=== PATIENT | female | born 1980 | race Caucasian/White ===

== ENCOUNTER 2020-06-09 15:59 | Outpatient (REF) | payer BC, SELFPAY | END 2020-06-09 16:00 | disposition home or self-care (01) | LOC: HO.LAB 15:59 | PROVIDERS: PCP Internal Medicine; Visit Provider Internal Medicine | DX: Z20.828 Contact with and (suspected) exposure to other viral communicable diseases (principal) | CPT/HCPCS: C9803; U0003 ==

== ENCOUNTER 2020-09-10 08:22 | Outpatient (REF) | payer BC, SELFPAY ==
[2020-09-10 11:40] LABS: Hematocrit 38.9 % (37-47); Hemoglobin 12.8 g/dl (12.0-16.0); Mean Corpuscular HGB Conc 32.9 g/dl (31.0-35.0); Mean Corpuscular Hemoglobin 30.9 pg (27.0-33.0); Mean Platelet Volume 11.3 fL (9.4-12.3); Platelet Count 179 X10*3/uL (160-400); Red Blood Count 4.14 X10*6/uL (4.20-5.50); Red Cell Distribution Width 12.8 % (11.0-16.0); White Blood Count 6.4 X10*3/uL (4.8-10.8)
[2020-09-10 12:08] LABS: Alanine Aminotransferase 14 U/L (0-31); Albumin Level 4.1 g/dL (3.5-5.0); Alkaline Phosphatase 50 U/L (39-117); Anion Gap 14 (12-20); Aspartate Amino Transferase 14 U/L (5-31); Bilirubin Total < 0.2 mg/dL (0.0-1.0); Blood Urea Nitrogen 13 mg/dL (9-16); Calcium 8.5 mg/dL (8.4-10.2); Carbon Dioxide 26 mmol/L (22-29); Chloride 105 mmol/L (96-108); Cholesterol 149 mg/dL; Estimated Glomerular Filt Rate > 60; Glucose Fasting 104 mg/dL (60-99); HDL Cholesterol 53 mg/dL; LDL Cholesterol Calculated 85 mg/dl; Potassium 4.9 mmol/L (3.3-5.1); Sodium 140 mmol/L (135-145); Total Protein 6.3 g/dL (6.5-8.0); Triglycerides 56 mg/dL
[2020-09-10 12:12] LABS: Thyroid Stimulating Hormone 0.95 uIU/mL (0.32-4.0); Vitamin D 25-OH Total 23.8 ng/mL (>30)
== END 2020-09-10 08:23 | disposition home or self-care (01) ==
LOC: HO.MANLDS 08:22
PROVIDERS: PCP Internal Medicine; Visit Provider Internal Medicine
DX: Z00.00 Encounter for general adult medical examination without abnormal findings (principal)
CPT/HCPCS: 36415; 80053; 80061; 82306; 84443; 85027

== ENCOUNTER 2022-02-01 11:13 | Outpatient (REF) | payer BC, SELFPAY ==
[2022-02-07 10:16] LABS: HLA B27 Negative (Negative)
== END 2022-02-01 11:14 | disposition home or self-care (01) ==
LOC: HO.MANLDS 11:13
PROVIDERS: Visit Provider Internal Medicine
DX: M46.1 Sacroiliitis, not elsewhere classified (principal)
CPT/HCPCS: 36415; 86812

== ENCOUNTER 2022-07-28 11:45 | Outpatient (REF) | payer BC, SELFPAY ==
[2022-07-28 14:15] LABS: MANUAL DIFF FLAG NO
[2022-07-28 14:21] LABS: Basophils Percent Auto 0.3 % (0-2); Eosinophils Percent Auto 0.4 % (0-4); Hemoglobin 13.8 g/dl (12.0-16.0); Imm Gran Abs Auto 0.03 X10*3/uL (0.00-0.03); Imm Gran Pct Auto 0.3 % (0.0-0.4); Lymphocytes Absolute Auto 1.5 X10*3/uL (1.2-4.9); Lymphocytes Percent Auto 14.8 % (20-40); Mean Corpuscular HGB Conc 33.7 g/dl (31.0-35.0); Mean Corpuscular Hemoglobin 31.3 pg (27.0-33.0); Mean Platelet Volume 10.6 fL (9.4-12.3); Monocytes Absolute Auto 0.7 X10*3/uL (0.1-1.2); Monocytes Percent Auto 6.5 % (2-11); Neutrophils Absolute Auto 8.1 x10*3/uL (2.0-8.3); Neutrophils Percent Auto 77.7 % (45-73); Platelet Count 196 X10*3/uL (160-400); Red Blood Count 4.41 X10*6/uL (4.20-5.50); Red Cell Distribution Width 13.6 % (11.0-16.0); White Blood Count 10.4 X10*3/uL (4.8-10.8)
[2022-07-28 14:58] LABS: Alanine Aminotransferase 12 U/L (0-31); Albumin Level 4.2 g/dL (3.5-5.0); Alkaline Phosphatase 53 U/L (39-117); Anion Gap 13 (12-20); Aspartate Amino Transferase 14 U/L (5-31); Bilirubin Total 0.4 mg/dL (0.0-1.0); Blood Urea Nitrogen 16 mg/dL (9-16); C Reactive Protein < 0.10 mg/dL (< or = 0.50); Calcium 9.1 mg/dL (8.4-10.2); Carbon Dioxide 27 mmol/L (22-29); Chloride 106 mmol/L (96-108); Estimated Glomerular Filt Rate > 60; Glucose Random 80 mg/dL (60-115); Iron 121 mcg/dL (30-160); Percent Iron Saturation 42 % (15-50); Potassium 3.8 mmol/L (3.3-5.1); Sodium 142 mmol/L (135-145); Total Iron Binding Capacity 286 mcg/dL (228-428); Total Protein 6.6 g/dL (6.5-8.0); Unsaturated Iron Binding 165 ug/dL
[2022-07-28 15:08] LABS: Erythrocyte Sedimentation Rate 1 MM/HR (0-20)
[2022-07-28 15:27] LABS: Ferritin 32 ng/mL (10-250); Folate 9.5 ng/mL (> or = 4.0); Free T4 (Free Thyroxine) 0.91 ng/dL (0.71-1.85); Thyroid Stimulating Hormone 0.65 uIU/mL (0.32-4.0); Vitamin B12 240 pg/mL (200-900); Vitamin D 25-OH Total 23.4 ng/mL (>30)
[2022-07-30 18:04] LABS: DHEA Sulfate 5 mcg/dL (15-205); Follicle Stimulating Hormone 6.8 mIU/mL; Lutenizing Hormone 3.6 mIU/mL; Prolactin 16.1 ng/mL
[2022-08-03 18:14] LABS: Progesterone 1.8 ng/mL
[2022-08-05 18:53] LABS: Testosterone, Total 3 ng/dL (2-45)
[2022-08-12 00:13] LABS: Estradiol Free 0.81 pg/mL; Estradiol, Ultrasensitive 44 pg/mL
== END 2022-07-28 11:46 | disposition home or self-care (01) ==
LOC: HO.MANLDS 11:45
PROVIDERS: Visit Provider Physician Assistant
DX: R53.83 Other fatigue (principal); N94.6 Dysmenorrhea, unspecified
CPT/HCPCS: 36415; 80053; 82306; 82607; 82627; 82670; 82681; 82728; 82746; 83001; 83002; 83540; 84144; 84146; 84403; 84439; 84443; 85025; 85652; 86140

== ENCOUNTER 2022-10-19 16:50 | Emergency (ER) | payer BC, SELFPAY ==
--- NOTE | ~2022-10-19 | US_ITS ---
EXAMINATION: US ABDOMEN LIMITED CLINICAL INFORMATION: Right upper quadrant pain. COMPARISON: None available. TECHNIQUE: Real-time imaging of the right upper quadrant abdominal viscera. FINDINGS: PANCREAS: Normal. LIVER: Normal. The liver is normal in size. The liver contour is normal. Parenchymal echogenicity is normal. No focal hepatic lesion. There is no intrahepatic biliary duct dilatation seen. GALLBLADDER: Normal. The gallbladder is physiologically distended without evidence of stones, sludge, polyps, wall thickening or pericholecystic fluid. COMMON BILE DUCT: Normal in caliber measuring 0.6 cm in diameter. RIGHT KIDNEY: Normal. No hydronephrosis. No renal calculi or focal parenchymal lesions. The kidney measures 11.1 cm in maximum dimension. FREE FLUID: None. RIGHT LOWER QUADRANT: The appendix was not identified sonographically. US/US abdomen limited IMPRESSION: No cholelithiasis or evidence of acute cholecystitis. The appendix was not identified sonographically. No free fluid. If clinical concern for appendicitis a CT abdomen pelvis with contrast could be obtained.
[2022-10-19 17:33] VITALS: BP 150/87; PULSE 88; RESP 18; TEMP 36.7; O2SAT 100; BMI 28.7
--- NOTE | 2022-10-19 17:33 | ED.GENADULT ---
HPI - General Adult General Chief complaint: Abdominal Pain Stated complaint: abdominal pain Time Seen by Provider: 10/19/22 19:50 Source: patient Mode of arrival: ambulatory History of Present Illness HPI narrative: 42-year-old female who states that for the past 2-3 days she has had pain and points to the anterior aspect of the iliac crest, she denies any traumatic injury to the area denies any association with nausea, vomiting, fever, chills, urinary symptoms, and states that she suffers from constipation at baseline. Related Data Allergies Allergy/AdvReac Type Severity Reaction Status Date / Time Penicillins Allergy Hives Verified 10/19/22 17:38 Review of Systems Review of Systems: Pertinent positives and negatives as stated in HPI [facility] Past Medical History Source: nursing notes reviewed Social History Social History Advance Directives: No Advance Directives Information Provided: No Physical Exam ED Vital Signs: Vital Signs - 24 hr 10/19/22 17:33 10/19/22 19:35 10/19/22 19:54 Temperature 98.0 F 98.3 F Pulse Rate 88 96 76 Respiratory Rate 18 18 18 Blood Pressure 150/87 H 137/79 145/74 H Pulse Oximetry 100 100 99 Oxygen Delivery Method Room Air Room Air Room Air BMI result Body Mass Index 28.7 VITAL SIGNS: Reviewed. GENERAL: Well developed, well nourished, in no acute distress. HEAD: Normocephalic/atraumatic EYES: PERRLA, EOMI EARS: Ext canals without abnormality NOSE: Nares patent bilateral OROPHARYNX: no oral lesions noted, posterior pharynx clear NECK: Supple, no adenopathy LUNGS: Normal breath sounds. No adventitious sounds or accessory muscle use. SpO2<100> CARDIOVASCULAR: Regular rate and rhythm without noted murmurs ABDOMEN: Soft, non-tender, non-distended with bowel sounds. There is no obvious ecchymosis/erythema/induration over the site identified by the patient at the right anterior aspect of the iliac crest. There is certainly no flank pain, no CVA tenderness and no right lower quadrant or right upper quadrant pain, there is no vesicular rash or dermatomal type distribution to patient's pain. MUSCULOSKELETAL: No tenderness, deformities, or effusions noted on gross inspection. EXTREMITIES: No cyanosis, clubbing or edema. SKIN: Inspection of the skin reveals no rashes NEUROLOGIC: Alert and oriented x 4. Strength and sensation to light touch were grossly intact x 4. Course Course Course Narrative: This is an RME: Additional HPI, ROS, PE not included below will be deferred to primary provider. 42 year old female with no significant PMH presents to the ED with RUQ abominal pain worsening for several days. Patient denies issues urinating, fevers, chills, nausea, vomiting or diarrhea. Patient reports she has her gallbaldder. Plan: imaging Medical Decision Making Medical Decision Making [facility] Narrative: 42-year-old female with history and clinical presentation to me right iliac crest soft tissue pain, she did not endorse me that it was right upper quadrant or right lower quadrant. I have reviewed all investigations and in combination with my clinical exam there is no evidence of ectopic, appendicitis, renal colic, UTI. I suspect that there may be a component of soft tissue pain and inflammation related to patient's underlying and ongoing conditions with extensive chronic back pain which lead to her needing to pursue epidural pain management. She is otherwise stable for discharge to home and states that she already has Tylenol, ibuprofen, lidocaine patch home. Differential Diagnosis Please see the discussion above Lab Data Please see the discussion above 10/19/22 18:27 10/19/22 18:27 Labs: Lab Results 10/19/22 10/19/22 10/19/22 Range/Units 18:27 18:27 20:28 WBC 10.3 (4.8-10.8) X10*3/uL RBC 4.45 (4.20-5.50) X10*6/uL Hgb 13.9 (12.0-16.0) g/dl Hct 41.0 (37.0-47.0) % MCV 92.1 (80.0-98.0) fL MCH 31.2 (27.0-33.0) pg MCHC 33.9 (31.0-35.0) g/dl RDW 12.9 (11.0-16.0) % Plt Count TNP MPV 10.9 (9.4-12.3) fL Immature Gran % (Auto) 0.5 H (0.0-0.4) % Neut % (Auto) 84.6 H (45-73) % Lymph % (Auto) 10.5 L (20-40) % Louisa % (Auto) 3.7 (2-11) % Eos % (Auto) 0.4 (0-4) % Baso % (Auto) 0.3 (0-2) % Lymph # (Auto) 1.1 L (1.2-4.9) X10*3/uL Louisa # (Auto) 0.4 (0.1-1.2) X10*3/uL Eos # (Auto) 0.0 (0.0-0.4) X10*3/uL Baso # (Auto) 0.0 (0.0-0.2) X10*3/uL Abs Immat Gran (auto) 0.05 H (0.00-0.03) X10*3/uL Absolute Neuts (auto) 8.7 H (2.0-8.3) x10*3/uL Absolute Nucleated RBC 0.000 (0.0-0.012) X10*3/uL Nucleated RBC % (auto) 0.0 (0.0-0.2) /100WBC Smear Tech's Comments VERIFIED Sodium 140 (135-145) mmol/L Potassium 4.3 (3.3-5.1) mmol/L Chloride 106 (96-108) mmol/L Carbon Dioxide 25 (22-29) mmol/L Anion Gap 13 (12-20) BUN 15 (9-16) mg/dL Creatinine 0.80 (0.5-1.4) mg/dL Estim Creat Clear Calc 100.4 Estimated GFR > 60 Random Glucose 108 (60-115) mg/dL Calcium 9.0 (8.4-10.2) mg/dL Magnesium 1.9 (1.6-2.6) mg/dL Total Bilirubin 0.3 (0.0-1.0) mg/dL AST 17 (5-31) U/L ALT 15 (0-31) U/L Alkaline Phosphatase 59 (39-117) U/L Total Protein 6.9 (6.5-8.0) g/dL Albumin 4.4 (3.5-5.0) g/dL Beta HCG, Quant mIU/mL Urine Color Yellow Urine Appearance Clear Urine pH 5.5 (5.0-9.0) Ur Specific [place] 1.015 (1.005-1.025) Urine Protein Negative (Neg-Trace) mg/dL Urine Glucose (UA) Negative (Negative) mg/dL Urine Ketones Negative (Negative) mg/dL Urine Blood Negative (Negative) Urine Nitrite Negative (Negative) Ur Leukocyte Esterase Trace H (Negative) Urine RBC 0-2 (0-2) /HPF Urine WBC 0-5 (0-5) /HPF Ur Squamous Epith Cells 3-5 (0-2) /HPF Urine Bacteria None Seen (None Seen) Hyaline Casts 0-2 (0-2) /LPF 10/19/22 Range/Units Unknown WBC (4.8-10.8) X10*3/uL RBC (4.20-5.50) X10*6/uL Hgb (12.0-16.0) g/dl Hct (37.0-47.0) % MCV (80.0-98.0) fL MCH (27.0-33.0) pg MCHC (31.0-35.0) g/dl RDW (11.0-16.0) % Plt Count MPV (9.4-12.3) fL Immature Gran % (Auto) (0.0-0.4) % Neut % (Auto) (45-73) % Lymph % (Auto) (20-40) % Louisa % (Auto) (2-11) % Eos % (Auto) (0-4) % Baso % (Auto) (0-2) % Lymph # (Auto) (1.2-4.9) X10*3/uL Louisa # (Auto) (0.1-1.2) X10*3/uL Eos # (Auto) (0.0-0.4) X10*3/uL Baso # (Auto) (0.0-0.2) X10*3/uL Abs Immat Gran (auto) (0.00-0.03) X10*3/uL Absolute Neuts (auto) (2.0-8.3) x10*3/uL Absolute Nucleated RBC (0.0-0.012) X10*3/uL Nucleated RBC % (auto) (0.0-0.2) /100WBC Smear Tech's Comments Sodium (135-145) mmol/L Potassium (3.3-5.1) mmol/L Chloride (96-108) mmol/L Carbon Dioxide (22-29) mmol/L Anion Gap (12-20) BUN (9-16) mg/dL Creatinine (0.5-1.4) mg/dL Estim Creat Clear Calc Estimated GFR Random Glucose (60-115) mg/dL Calcium (8.4-10.2) mg/dL Magnesium (1.6-2.6) mg/dL Total Bilirubin (0.0-1.0) mg/dL AST (5-31) U/L ALT (0-31) U/L Alkaline Phosphatase (39-117) U/L Total Protein (6.5-8.0) g/dL Albumin (3.5-5.0) g/dL Beta HCG, Quant < 2 mIU/mL Urine Color Urine Appearance Urine pH (5.0-9.0) Ur Specific [place] (1.005-1.025) Urine Protein (Neg-Trace) mg/dL Urine Glucose (UA) (Negative) mg/dL Urine Ketones (Negative) mg/dL Urine Blood (Negative) Urine Nitrite (Negative) Ur Leukocyte Esterase (Negative) Urine RBC (0-2) /HPF Urine WBC (0-5) /HPF Ur Squamous Epith Cells (0-2) /HPF Urine Bacteria (None Seen) Hyaline Casts (0-2) /LPF Radiology Impression Radiologist Impression: My interpretation is in agreement with radiology's impression of the imaging studies. External Record Review External record reviewed: Prior outpatient labs Discharge Plan Discharge Clinical Impression: Right flank pain Patient Disposition: Home, Self-Care Instructions: Flank Pain (ED) Additional Instructions: Please follow-up with your primary care doctor for further evaluation. There was no evidence to suggest kidney stone, appendicitis, UTI, ectopic . Return to the ER for any worsening symptoms. Referrals: Joselo Mckeon MD [Primary Care Provider] -
[2022-10-19 18:41] LABS: Basophils Percent Auto 0.3 % (0-2); Eosinophils Percent Auto 0.4 % (0-4); Hemoglobin 13.9 g/dl (12.0-16.0); Imm Gran Abs Auto 0.05 X10*3/uL (0.00-0.03); Imm Gran Pct Auto 0.5 % (0.0-0.4); Lymphocytes Absolute Auto 1.1 X10*3/uL (1.2-4.9); Lymphocytes Percent Auto 10.5 % (20-40); MANUAL DIFF FLAG SCAN; Mean Corpuscular HGB Conc 33.9 g/dl (31.0-35.0); Mean Corpuscular Hemoglobin 31.2 pg (27.0-33.0); Mean Corpuscular Volume 92.1 fL (80.0-98.0); Mean Platelet Volume 10.9 fL (9.4-12.3); Monocytes Absolute Auto 0.4 X10*3/uL (0.1-1.2); Monocytes Percent Auto 3.7 % (2-11); Neutrophils Absolute Auto 8.7 x10*3/uL (2.0-8.3); Neutrophils Percent Auto 84.6 % (45-73); PLT CLUMP 1; Red Blood Count 4.45 X10*6/uL (4.20-5.50); Red Cell Distribution Width 12.9 % (11.0-16.0); SCAN SMEAR FLAG 1
[2022-10-19 18:50] LABS: White Blood Count 10.3 X10*3/uL (4.8-10.8)
[2022-10-19 18:51] LABS: Alanine Aminotransferase 15 U/L (0-31); Albumin Level 4.4 g/dL (3.5-5.0); Alkaline Phosphatase 59 U/L (39-117); Anion Gap 13 (12-20); Aspartate Amino Transferase 17 U/L (5-31); Bilirubin Total 0.3 mg/dL (0.0-1.0); Blood Urea Nitrogen 15 mg/dL (9-16); Carbon Dioxide 25 mmol/L (22-29); Chloride 106 mmol/L (96-108); Creatinine Clr Calc Pharmacy 100.4; Estimated Glomerular Filt Rate > 60; Glucose Random 108 mg/dL (60-115); Magnesium 1.9 mg/dL (1.6-2.6); Potassium 4.3 mmol/L (3.3-5.1); Sodium 140 mmol/L (135-145); Total Protein 6.9 g/dL (6.5-8.0)
[2022-10-19 19:16] LABS: SLIDE REVIEW VERIFIED
[2022-10-19 19:35] VITALS: BP 137/79; PULSE 96; RESP 18; O2SAT 100
[2022-10-19 19:43] LABS: HCG Quantitative < 2 mIU/mL
[2022-10-19 19:54] VITALS: BP 145/74; PULSE 76; RESP 18; TEMP 36.8; O2SAT 99
[2022-10-19 20:37] LABS: Appearance Urine Clear; Color Urine Yellow; Glucose Urine UA Negative (Negative); Leukocyte Esterase Urine Trace (Negative); Nitrite Urine Negative (Negative); PH 5.5 (5.0-9.0); Specific Gravity - Urine 1.015 (1.005-1.025); UMIC TRIGGER UACC YES; Urine Blood Negative (Negative); Urine Ketones Negative (Negative); Urine Protein Negative (Neg-Trace)
[2022-10-19 20:39] LABS: Bacteria Urine None Seen (None Seen); Hyaline Casts Urine 0-2 /LPF (0-2); RBC Urine 0-2 /HPF (0-2); WBC Urine 0-5 /HPF (0-5)
== END 2022-10-19 21:34 | disposition home or self-care (01) ==
PROVIDERS: Physician Assistant; Emergency Provider Student in an Organized Health Care Education/Training Program; PCP Internal Medicine
DX: R10.11 Right upper quadrant pain (principal); Z79.899 Other long term (current) drug therapy
CPT/HCPCS: 36415; 76705; 80053; 81001; 83735; 84702; 85025; 99283; 99284

== ENCOUNTER 2023-07-31 11:06 | Emergency (ER) | payer BC, SELFPAY ==
--- NOTE | ~2023-07-31 | CT_ITS ---
EXAM: Noncontrast CT scan of the head and cervical spine. INDICATION: Fall with head and neck pain. COMPARISON: None available TECHNIQUE: Axial slices were obtained from skull base to vertex and displayed. This was followed by helical, multislice, multidetector axial images from the occiput to the upper thorax. Coronal and sagittal reformats of the cervical spine in addition to coronal reformats of the head were obtained at the technologist workstation. DLP: 1110 mGy-cm FINDINGS: HEAD: There is no evidence of acute intracranial hemorrhage or territorial infarction. No abnormal mass effect or midline shift is appreciated. Vivar-white differentiation is well preserved. No extra-axial fluid collections. The ventricular system and cortical sulci are normal in size. The osseous structures and soft tissues are normal. The visualized paranasal sinuses and mastoid air cells are well aerated. SPINE: The cervical spine is visualized in its entirety. Alignment is within normal limits. Normal C1/2 articulation. Cervical vertebral body heights are maintained. Cervical disc spaces are well-maintained diffusely. No appreciable degenerative changes of the cervical spine. Visualized lung apices are well aerated. CT/CT cervical spine wo IV con IMPRESSION: 1. No acute intracranial pathology. 2. No fractures or dislocations of the cervical spine.
--- NOTE | ~2023-07-31 | CT_ITS ---
EXAM: Noncontrast CT scan of the head and cervical spine. INDICATION: Fall with head and neck pain. COMPARISON: None available TECHNIQUE: Axial slices were obtained from skull base to vertex and displayed. This was followed by helical, multislice, multidetector axial images from the occiput to the upper thorax. Coronal and sagittal reformats of the cervical spine in addition to coronal reformats of the head were obtained at the technologist workstation. DLP: 1110 mGy-cm FINDINGS: HEAD: There is no evidence of acute intracranial hemorrhage or territorial infarction. No abnormal mass effect or midline shift is appreciated. Vivar-white differentiation is well preserved. No extra-axial fluid collections. The ventricular system and cortical sulci are normal in size. The osseous structures and soft tissues are normal. The visualized paranasal sinuses and mastoid air cells are well aerated. SPINE: The cervical spine is visualized in its entirety. Alignment is within normal limits. Normal C1/2 articulation. Cervical vertebral body heights are maintained. Cervical disc spaces are well-maintained diffusely. No appreciable degenerative changes of the cervical spine. Visualized lung apices are well aerated. CT/CT head/brain wo IV con IMPRESSION: 1. No acute intracranial pathology. 2. No fractures or dislocations of the cervical spine.
[2023-07-31 11:19] VITALS: BP 145/91; PULSE 107; RESP 19; TEMP 36.6; O2SAT 98; BMI 30.2
--- NOTE | 2023-07-31 11:27 | ED_ITS ---
HPI - General Adult General Chief complaint: General Medical Stated complaint: both shoulders and arms tightness multi issues Time Seen by Provider: 07/31/23 13:11 History of Present Illness HPI narrative: Patient left without complete of treatment by ED provider Related Data Allergies Allergy/AdvReac Type Severity Reaction Status Date / Time Penicillins Allergy Hives Verified 07/31/23 11:19 [facility] Social History Social History (System 04/03/23 @ 13:14 by Yarely Lynch) Advance Directives: No Advance Directives Information Provided: No Physical Exam ED Vital Signs: Vital Signs - 24 hr 07/31/23 11:19 Temperature 98 F Pulse Rate 107 H Respiratory Rate 19 Blood Pressure 145/91 H Pulse Oximetry 98 Oxygen Delivery Method Room Air BMI result Body Mass Index 30.2 Course Course Course Narrative: RME: 43 yold female with past medical history of neuropathy arthritis presents to ED for posterior neck pain radiating down both shoulders with tingling pain sensation since satruday. Patient states also nausea and fatigue since satruday. Patient states urine dark. Patient states she fell a week ago .patient denies hitting head or loss of conscisouness. due to fall will order images. NIH score zero. positive posterior cervical spine tenderness on palpaion Medical Decision Making Lab Data 07/31/23 12:15 07/31/23 12:15 Labs: Lab Results 07/31/23 Range/Units 12:15 WBC 4.3 L (4.8-10.8) X10*3/uL RBC 4.43 (4.20-5.50) X10*6/uL Hgb 13.5 (12.0-16.0) g/dl Hct 40.7 (37.0-47.0) % MCV 91.9 (80.0-98.0) fL MCH 30.5 (27.0-33.0) pg MCHC 33.2 (31.0-35.0) g/dl RDW 13.5 (11.0-16.0) % Plt Count 134 L D (160-400) X10*3/uL MPV 10.6 (9.4-12.3) fL Immature Gran % (Auto) 0.2 (0.0-0.4) % Neut % (Auto) 56.3 (45-73) % Lymph % (Auto) 32.3 (20-40) % Randolph % (Auto) 9.8 (2-11) % Eos % (Auto) 0.7 (0-4) % Baso % (Auto) 0.7 (0-2) % Lymph # (Auto) 1.4 (1.2-4.9) X10*3/uL Randolph # (Auto) 0.4 (0.1-1.2) X10*3/uL Eos # (Auto) 0.0 (0.0-0.4) X10*3/uL Baso # (Auto) 0.0 (0.0-0.2) X10*3/uL Abs Immat Gran (auto) 0.01 (0.00-0.03) X10*3/uL Absolute Neuts (auto) 2.4 (2.0-8.3) x10*3/uL Absolute Nucleated RBC 0.000 (0.0-0.012) X10*3/uL Nucleated RBC % (auto) 0.0 (0.0-0.2) /100WBC Sodium 142 (135-145) mmol/L Potassium 4.3 (3.3-5.1) mmol/L Chloride 108 (96-108) mmol/L Carbon Dioxide 28 (22-29) mmol/L Anion Gap 10 L (12-20) BUN 8 L (9-16) mg/dL Creatinine 0.73 (0.5-1.4) mg/dL Estim Creat Clear Calc 111.7 Estimated GFR > 60 Random Glucose 117 H (60-115) mg/dL Calcium 8.8 (8.4-10.2) mg/dL Magnesium 1.9 (1.6-2.6) mg/dL Total Bilirubin 1.4 H (0.0-1.0) mg/dL AST 558 H (5-31) U/L ALT 944 H (0-31) U/L Alkaline Phosphatase 253 H (39-117) U/L Total Creatine Kinase 113 (26-140) U/L Total Protein 6.6 (6.5-8.0) g/dL Albumin 3.6 (3.5-5.0) g/dL Lipase 14 (8-78) U/L Beta HCG, Quant < 2 mIU/mL Influenza Type A (PCR) NEGATIVE (Negative) Influenza Type B (PCR) NEGATIVE (Negative) RSV RNA Qual (PCR) NEGATIVE (Negative) SARS-CoV-2 RNA (RT-PCR) NEGATIVE (Negative) Discharge Plan Discharge Clinical Impression: Bilateral shoulder pain Patient Disposition: Left W/O Completing Treatment Discharge Date/Time: 07/31/23 18:14
[2023-07-31 12:22] LABS: MANUAL DIFF FLAG NO
[2023-07-31 12:25] LABS: Basophils Percent Auto 0.7 % (0-2); Eosinophils Percent Auto 0.7 % (0-4); Hematocrit 40.7 % (37.0-47.0); Hemoglobin 13.5 g/dl (12.0-16.0); Imm Gran Abs Auto 0.01 X10*3/uL (0.00-0.03); Imm Gran Pct Auto 0.2 % (0.0-0.4); Lymphocytes Absolute Auto 1.4 X10*3/uL (1.2-4.9); Lymphocytes Percent Auto 32.3 % (20-40); Mean Corpuscular HGB Conc 33.2 g/dl (31.0-35.0); Mean Corpuscular Hemoglobin 30.5 pg (27.0-33.0); Mean Corpuscular Volume 91.9 fL (80.0-98.0); Mean Platelet Volume 10.6 fL (9.4-12.3); Monocytes Absolute Auto 0.4 X10*3/uL (0.1-1.2); Monocytes Percent Auto 9.8 % (2-11); Neutrophils Absolute Auto 2.4 x10*3/uL (2.0-8.3); Neutrophils Percent Auto 56.3 % (45-73); Platelet Count 134 X10*3/uL (160-400); Red Blood Count 4.43 X10*6/uL (4.20-5.50); Red Cell Distribution Width 13.5 % (11.0-16.0); White Blood Count 4.3 X10*3/uL (4.8-10.8)
[2023-07-31 12:45] LABS: Alanine Aminotransferase 944 U/L (0-31); Albumin Level 3.6 g/dL (3.5-5.0); Alkaline Phosphatase 253 U/L (39-117); Anion Gap 10 (12-20); Aspartate Amino Transferase 558 U/L (5-31); Bilirubin Total 1.4 mg/dL (0.0-1.0); Blood Urea Nitrogen 8 mg/dL (9-16); Calcium 8.8 mg/dL (8.4-10.2); Carbon Dioxide 28 mmol/L (22-29); Chloride 108 mmol/L (96-108); Creatinine Clr Calc Pharmacy 111.7; Estimated Glomerular Filt Rate > 60; Glucose Random 117 mg/dL (60-115); Lipase 14 U/L (8-78); Magnesium 1.9 mg/dL (1.6-2.6); Potassium 4.3 mmol/L (3.3-5.1); Sodium 142 mmol/L (135-145); Total Protein 6.6 g/dL (6.5-8.0)
[2023-07-31 12:50] LABS: HCG Quantitative < 2 mIU/mL
[2023-07-31 13:00] LABS: Influenza A PCR NEGATIVE (Negative); Influenza B PCR NEGATIVE (Negative); Resp Syncy Virus RNA Qual PCR NEGATIVE (Negative); SARS COV2 PCR INHOUSE NEGATIVE (Negative)
--- OUTSIDE RECORDS SUMMARY | 2023-07-31 18:14 | XMS_ITS | Continuity of Care Document ---
Author Name Unknown Organization [facility] [place] [address] [address]- Care Team Providers Care Django Developer Name Role Phone Joselo Mckeon DO Uriel Primary Care Physician [phone] Encounter [facility] [place] Date(s): 02/20/20 - 03/21/20 [facility] [address] [address]- [facility] Attending Physician: Phyllis Michael Admitting Physician: Admtr, Ar8 Referring Physician: Admtr, Ar8 Allergies, Adverse Reactions, Alerts Substance Reaction Severity Status penicillins Active Medications Boots See Instructions, # 1 each, Maintenance, [employer] short boot/ 01A-M Left/ Medium DX- 825.25, 07/23/12 10:50:37 Start Date: 07/23/12 Status: Ordered Buprenorphine = 5 mg, Daily, 0 Refills, Maintenance, 07/02/15 9:27:34 Start Date: 07/02/15 Status: Ordered Diazepam 0 Refills, Maintenance, 10/29/14 10:20:41 Start Date: 10/29/14 Status: Ordered diclofenac sodium By Mouth, 0 Refills, Maintenance, 10/29/14 10:20:33 Start Date: 10/29/14 Status: Ordered Flexeril Tablet By Mouth, 3 times a day, Maintenance, 10/29/14 10:20:49 Start Date: 10/29/14 Status: Ordered Lactulose 0 Refills, Maintenance, 10/29/14 10:20:15 Start Date: 10/29/14 Status: Ordered Mirena 52 mg intrauteral device 1 each = 52 mg, Once, 0 Refills, Maintenance, 10/29/14 10:21:58 Start Date: 10/29/14 Status: Ordered Multivitamin By Mouth, Daily, 0 Refills, Maintenance, 10/29/14 10:18:29 Start Date: 10/29/14 Status: Ordered Osteo Bi-Flex 0 Refills, Maintenance, 10/29/14 10:20:07 Start Date: 10/29/14 Status: Ordered Valtrex Tablet By Mouth, Maintenance, 10/29/14 10:21:29 Start Date: 10/29/14 Status: Ordered Beatris-Zinc 1 tablet, By Mouth, Daily, 0 Refills, Maintenance, 10/29/14 10:18:47 Start Date: 10/29/14 Status: Ordered Wellbutrin XL 150 mg/24 hours oral tablet, extended release 1 tablet = 150 mg, By Mouth, Every 24 hours, # 90 tablet, 0 Refills, Maintenance, 06/09/15 10:24:08, ER Tablet, 1 tablet By Mouth Every 24 hours,x90 days Start Date: 06/09/15 Stop Date: 09/07/15 Status: Ordered Wellbutrin XL 300 mg/24 hours oral tablet, extended release 1 tablet = 300 mg, By Mouth, Daily, # 90 tablet, 3 Refills, Maintenance, 07/02/15 9:34:09, ER Tablet, 1 tablet By Mouth Daily,x90 days Start Date: 07/02/15 Stop Date: 06/26/16 Status: Ordered Social History Social History Type Response Smoking Status Current every day radha melton entered on: 10/29/14 Sex
--- OUTSIDE RECORDS SUMMARY | 2023-07-31 18:14 | XMS_ITS | Continuity of Care Document ---
Author Name Unknown Organization [facility] Address [address] [address]- Care Team Providers Care Tip Out Worker Name Role Phone Joselo Mckeon DO Uriel Primary Care Physician [place] [facility] [place]13[place] 11[place]12/21 [facility] [address] [address]- [place] Allergies, Adverse Reactions, Alerts Substance Reaction Severity [...] 10/29/14 10:20:07 Start Date: 10/29/14 Status: Ordered ProAir HFA 90 mcg/inh inhalation aerosol with adapter 2, puffs, Inhalation, Every 6 hours, PRN, # 8.5 Gm, Refills 0, Tot. Refills 0, Maintenance, 12/04/20 14:05:00 EDT, Aerosol, Route to Pharmacy Electronically, [id number], [facility]/pharmacy #[id number], 169, cm, 02/20/20 14:46:00 EDT, Height Start Date: 12/04/20 Status: Ordered Valtrex Tablet By Mouth, Maintenance, [...]
--- OUTSIDE RECORDS SUMMARY | 2023-07-31 18:14 | XMS_ITS | Continuity of Care Document ---
Author Name Unknown Organization [facility] Address [address] [address]- Care Team Providers Care Working Manager Name Role Phone Joselo Mckeon DO Uriel Primary Care Physician Encounter [facility] [place] Date(s): 11/18/21 - 12/18/21 [facility] [address] [address]- Attending Physician: AdmPhyllis fagan Admitting Physician: Admtr, Ar8 Referring Physician: Admtr, [...] 14:05:00 EDT, Aerosol, Route to Pharmacy Electronically, [id number], [facility]/pharmacy #[id number], 169, cm, 02/20/20 14:46:00 EDT, Height [...]
--- OUTSIDE RECORDS SUMMARY | 2023-07-31 18:14 | XMS_ITS | Continuity of Care Document ---
Author Name Unknown Organization [facility] Address [address] [place] [address]- Care Team Providers Care Dowel Pin Man Name Role Phone Joselo Mckeon DO Primary Care Physician Encounter [facility] [place] Date(s): 12/04/20 - 12/11/20 [facility] [address] [place] [address]- Encounter Diagnosis Acute bronchitis(Discharge Diagnosis) - 12/04/20 Attending Physician: Jack Bajwa MD Referring Physician: Joselo Mckeon DO Allergies, Adverse Reactions, Alerts Substance Reaction Severity [...] 14:05:00 EDT, Aerosol, Route to Pharmacy Electronically, [id number], [facility]/pharmacy #[id number], 169, cm, 02/20/20 14:46:00 EDT, Height [...] Date: 07/02/15 Stop Date: 06/26/16 Status: Ordered Problem List Diagnosis Diagnosis Type Effective Dates Health Status Clinical Service Informant Acute bronchitis Discharge Diagnosis 12/04/20 Social History Social History Type Response Smoking Status Current every day radha melton entered on: 10/29/14 Sex
--- OUTSIDE RECORDS SUMMARY | 2023-07-31 18:14 | XMS_ITS | Continuity of Care Document ---
Author Name Unknown Organization [facility] Address [address] [address]- Care Team Providers Care Coronary Clinical Specialist Name Role Phone Joeslo Mckeon DO Uriel Primary Care Physician Encounter [facility] [place] Date(s): 02/20/20 - 03/21/20 [facility] [address] [address]- [facility] Attending Physician: AdmPhyllis fagan Admitting Physician: Admtr, [...]
--- OUTSIDE RECORDS SUMMARY | 2023-07-31 18:14 | XMS_ITS | Continuity of Care Document ---
Author Name Unknown Organization [facility] Address [address] [place] [address]- Care Team Providers Care Help Desk Supervisor Name Role Phone Joselo Mckeon DO Uriel Primary Care Physician [phone] Encounter [facility] [place] Date(s): 07/20/22 - 08/19/22 [facility] [address] [place], [place] [address] Attending Physician: hPyllis Michael Admitting Physician: AdmtrPhyllis Referring Physician: Admtr, Ar8 Allergies, Adverse Reactions, Alerts Substance Reaction Severity Status penicillins Active Medications Boots See Instructions, # 1 each, Maintenance, [employer] short boot/ 01A-M Left/ Medium DX- 825.25, 07/23/12 10:50:37 Start Date: 07/23/12 Status: Ordered Buprenorphine = 5 mg, Daily, 0 Refills, Maintenance, 07/02/15 9:27:34 Start Date: 07/02/15 Status: Ordered celecoxib 100 mg oral capsule 1 capsule = 100 mg, By Mouth, 2 times a day, # 60 capsule, 0 Refills, Maintenance, 07/20/22 16:43:00 EST, Capsule, Partial fill upon patient request if the prescription is for a schedule II opioid drug. Start Date: 07/20/22 Status: Ordered Compression Stockings See Instructions, # 2 each, Refills 2, Tot. Refills 2, Maintenance, surgical, calf length 20-30 mm Hg Dx: venous insufficiency, 02/20/20 15:04:00 EDT, Compound Start Date: 02/20/20 Status: Ordered Diazepam 0 Refills, Maintenance, 10/29/14 [...] 14:05:00 EDT, Aerosol, Route to Pharmacy Electronically, [id number], [facility]/pharmacy #[id number], 169, cm, 02/20/20 14:46:00 EDT, Height Start Date: 12/04/20 Status: Ordered Suboxone 8 mg-2 mg sublingual film 1 film, Sublingual, Daily, dissolve under the tongue, 0 Refills, Maintenance, 07/20/22 16:42:00 EST, Film, Partial fill upon patient request if the prescription is for a schedule II opioid drug. Start Date: 07/20/22 Status: Ordered Valtrex Tablet By Mouth, Maintenance, 10/29/14 10:21:29 Start Date: 10/29/14 Status: Ordered Betaris-Zinc 1 tablet, By Mouth, Daily, 0 Refills, [...] day radha melton entered on: 10/29/14 Sex Patient Care team information Care Team Personnel Name: Joselo Mckeon DO Position: Reference Physician Member Role: PCP Address: Address: [address] [place] [address] [place] [address]- Care Team Related Persons Name: ARELY LEYVA Address: home [address] [place] [phone]
--- OUTSIDE RECORDS SUMMARY | 2023-07-31 18:14 | XMS_ITS | Continuity of Care Document ---
Author Name Unknown Organization [facility] Address [address] [address]- Care Team Providers Care Motor Vehicle Licence Examiner Name Role Phone Joselo Mckeon DO Primary Care Physician [phone] Encounter [facility] [place] Date(s): 02/20/20 - 02/27/20 [place] [id number] [address]- [facility] Attending Physician: Silke PENNINGTON, Katya Schultz Admitting Physician: Silke PENNINGTON, Katya Schultz Referring Physician: Joselo Mckeon DO Allergies, Adverse [...] Date: 07/02/15 Stop Date: 06/26/16 Status: Ordered Vital Signs Most recent to oldest [Reference Range]: 1 Height 169.0 cm (02/20/20 2:46 PM) Weight 76.9 kg (02/20/20 2:46 PM) Oxygen Saturation [94-100 %] 100 % (02/20/20 2:46 PM) Pulse Rate [55-90 bpm] 65 bpm (02/20/20 2:46 PM) Body Mass Index [18.5-24.99] 26.92 *H* (02/20/20 2:46 PM) Blood Pressure [90-138/55-84 mm Hg] 138/ 74mm Hg (02/20/20 2:46 PM) Blood pressure sites Arm, left (02/20/20 2:46 PM) Weight Obtained Via Standing scale (02/20/20 2:46 PM) Social History Social History Type Response Smoking Status Current every day radha melton entered on: 10/29/14 Sex
--- OUTSIDE RECORDS SUMMARY | 2023-07-31 18:14 | XMS_ITS | Continuity of Care Document ---
Author Name Unknown Organization [facility] Address [address] [place] [address]- Care Team Providers Care Eyelet Cutter Name Role Phone Joselo Mckeon DO Uriel Primary Care Physician [phone] Encounter [facility] [place] Date(s): 01/17/23 - 02/16/23 [facility] [address] [place] [address]- Allergies, Adverse Reactions, Alerts Substance Reaction Severity [...] 14:05:00 EDT, Aerosol, Route to Pharmacy Electronically, [id number], [facility]/pharmacy #[id number], 169, cm, 02/20/20 14:46:00 EDT, Height [...] Reference Physician Member Role: PCP Address: Address: [address] [place] [address] [place] [address]- Care Team Related Persons Name: ARELY LEYVA Address: home [address] [facility] [id number]
--- OUTSIDE RECORDS SUMMARY | 2023-07-31 18:14 | XMS_ITS | Continuity of Care Document ---
Author Name Unknown Organization [facility]sur[facility] y Address [address] [place] [address] [address], [address] [place] [address]- Care Team Providers Care Sheet Ironworker Name Role Phone Joselo Mckeon DO Uriel Primary Care Physician [phone] Encounter [facility] Date(s): 05/29/23 - 06/28/23 [facility] Neurosurgery [address] [place] [address], [address] [place], [place] [address] Attending Physician: Admtr, Ar8 Admitting Physician: Admtr, Adria8 Referring Physician: Admtr, Ar8 Allergies, Adverse Reactions, [...] 10/29/14 10:20:49 Start Date: 10/29/14 Status: Ordered gabapentin 300 mg/24 hours oral tablet, extended release 3 tablet = 900 mg, By Mouth, Daily, # 90 tablet, 0 Refills, Maintenance, 05/15/23 9:37:00 EST, Tablet, Partial fill upon patient request if the prescription is for a schedule II opioid drug. Start Date: 05/15/23 Status: Ordered Lactulose 0 Refills, Maintenance, 10/29/14 [...] 14:05:00 EDT, Aerosol, Route to Pharmacy Electronically, [id number], [facility]/pharmacy #[id number], 169, cm, 02/20/20 14:46:00 EDT, [...] Stop Date: 06/26/16 Status: Ordered Problem List Condition Confirmation Course Effective Dates Status Health St atus Informant Obese class I Confirmed Active Social History Social History Type Response Smoking Status Current every day radha melton entered on: 10/29/14 Sex Patient Care team information Care Team Personnel Name: Joselo Mckeon DO Position: Reference Physician Member Role: PCP Address: Address: [address] [place] [address] [place] [address]- Care Team Related Persons Name: ARELY LEYVA Address: [address] [place] [address]
--- OUTSIDE RECORDS SUMMARY | 2023-07-31 18:14 | XMS_ITS | Continuity of Care Document ---
Author Name Unknown Organization [facility] Address [address] [address]- Care Team Providers Care Retail District Manager Name Role Phone Joselo Mckeon DO Uriel Primary Care Physician En[place] [facility] [place] Date(s): 01/30/20 - 03/21/20 [place] [address] [id number] [address]- [place] Attending Physician: Silke PENNINGTON, Katya Schultz Admitting Physician: Silke PENNINGTON, Katya Schulzt Referring Physician: Silke PENNINGTON, Katya Schultz Allergies, Adverse Reactions, Alerts Substance Reaction Severity [...]
--- OUTSIDE RECORDS SUMMARY | 2023-07-31 18:14 | XMS_ITS | Continuity of Care Document ---
Author Name Unknown Organization [facility] Address [address] [address]- Care Team Providers Care Volleyball Player Name Role Phone Joselo Mckeon DO Primary Care Physician En[place] [facility] [place] Date(s): 12/10/19 - 02/22/20 [place] [id number] [address]- [place] Attending Physician: Silke PENNINGTON, Katya Schultz [...]
--- OUTSIDE RECORDS SUMMARY | 2023-07-31 18:14 | XMS_ITS | Continuity of Care Document ---
Author Name Unknown Organization [facility] Address [address] [address]- Care Team Providers Care Ornamental Metal Erector Apprentice Name Role Phone Joselo Mckeon DO Uriel Primary Care Physician En[place] [facility] [place] Date(s): 02/20/20 - 02/27/20 [id number] [address]- [place] Attending Physician: Silke PENNINGTON, Katya Schultz Admitting Physician: Silke PENNINGTON, Katya Schultz Referring Physician: Silke PENNINGTON, Katya Schultz Allergies, [...]
--- OUTSIDE RECORDS SUMMARY | 2023-07-31 18:14 | XMS_ITS | Continuity of Care Document ---
Author Name Unknown Organization [facility] Neurosurger y Address [address] [place] [address] [address], [address] [place] [address]- Care Team Providers Care Cook Jelly Name Role Phone Joselo Mckeon DO A Primary Care Physician [facility]counter [facility] Date(s): 05/01/23 - 05/31/23 [facility] Neurosurgery [address] [place] [address], [address] [place], [place] [address] Allergies, Adverse Reactions, Alerts Substance Reaction Severity [...] 14:05:00 EDT, Aerosol, Route to Pharmacy Electronically, [id number], [facility]/pharmacy #[id number], 169, cm, 02/20/20 14:46:00 [...] Reference Physician Member Role: PCP Address: Address: [address] [place] [address] Internal Medicine [place], [place] [address] Care Team Related Persons Name: ARELY LEYVA Address: [address] [place] [address]
--- OUTSIDE RECORDS SUMMARY | 2023-07-31 18:14 | XMS_ITS | Continuity of Care Document ---
Author Name Unknown Organization [facility] Neurosurger y Address [address] [place] [address] [address], [address] [place] [address]- Care Team Providers Care Appeals Referee Name Role Phone Joselo Mckeon DO Primary Care Physician Encounter [facility] [place] Date(s): 05/15/23 - 05/22/23 [facility] Neurosurgery [address] [place] [address], [address] [place], [place] [address] Attending Physician: Cesar Dela Cruz MD Referring Physician: Jess ESPINAL, Henrik De Santiago Allergies, Adverse Reactions, Alerts Substance Reaction Severity [...] 14:05:00 EDT, Aerosol, Route to Pharmacy Electronically, [id number], [facility]/pharmacy #[id number], 169, cm, 02/20/20 14:46:00 EDT, [...] atus Informant Obese class I Confirmed Active Vital Signs Most recent to oldest [Reference Range]: 1 Height 169.0 cm (05/15/23 9:28 AM) Weight 86 kg (05/15/23 9:28 AM) Body Mass Index [18.5-24.99 kg/m2] 30.11 kg/m2 *>HHI* (05/15/23 9:28 AM) Social History Social History Type Response Smoking Status Current every day radha melton entered on: 10/29/14 Sex Patient Care team information Care Team Personnel Name: Joselo Mckeon DO Position: Reference Physician Member Role: PCP Address: Address: [address] [place] [address] [place] [address]- Care Team Related Persons Name: ARELY LEYVA Address: [address] [place] [address]
--- OUTSIDE RECORDS SUMMARY | 2023-07-31 18:15 | XMS_ITS | Continuity of Care Document ---
Author Name Unknown Organization [facility] Address [address] [address]- Care Team Providers Care Traditional Chinese Herbalist Name Role Phone Joselo Mckeon DO Uriel Primary Care Physician [phone] Encounter [facility] Date(s): 01/14/20 - 02/13/20 [facility] [address] [address]- [place] Allergies, Adverse Reactions, Alerts Substance Reaction Severity [...]
--- OUTSIDE RECORDS SUMMARY | 2023-07-31 18:15 | XMS_ITS | Continuity of Care Document ---
Author Name Unknown Organization [facility] Address [address] [address]- Care Team Providers Care Middle School Football Coach Name Role Phone Joselo Mckeon DO Primary Care Physician Encounter [facility] Date(s): 10/13/21 - 12/18/21 [facility] [address] [address]- Attending Physician: Silke PENNINGTON, Katya Schultz Admitting [...] 14:05:00 EDT, Aerosol, Route to Pharmacy Electronically, [id number], [facility]/pharmacy #[id number], 169, cm, 02/20/20 14:46:00 EDT, Height [...]
--- OUTSIDE RECORDS SUMMARY | 2023-07-31 18:15 | XMS_ITS | Continuity of Care Document ---
Author Name Unknown Organization [facility] Address [address] [address]- Care Team Providers Care Lead Systems Analyst Name Role Phone Joselo Mckeon DO Uriel Primary Care Physician Encounter [facility] [place] Date(s): 12/10/19 - 02/22/20 [place] [id number] [address]- [place] Attending Physician: Silke PENNINGTON, Katya Schultz [...]
--- OUTSIDE RECORDS SUMMARY | 2023-07-31 18:15 | XMS_ITS | Continuity of Care Document ---
Author Name Unknown Organization [facility] Neurosurger y Address [address] [place], [place] [address], [address] [place] [address]- Care Team Providers Care Respiratory Care Practitioner Name Role Phone Linda HERNANDEZ, Joselo A Primary Care Physician En[place] [facility] [place] Date(s): 05/29/23 - 06/05/23 [facility] [address] [place] [address], [address] [place], [place] [address] Attending Physician: Cesar Dela Cruz MD Referring Physician: Joselo Mckeon DO Allergies, [...] 14:05:00 EDT, Aerosol, Route to Pharmacy Electronically, [id number], [facility]/pharmacy #[id number], 169, cm, 02/20/20 14:46:00 EDT, Height [...] Reference Physician Member Role: PCP Address: Address: [address] [place] [address] [place] [address]- Care Team Related Persons Name: ARELY LEYVA Address: [address] [place] [address]
--- OUTSIDE RECORDS SUMMARY | 2023-07-31 18:15 | XMS_ITS | Continuity of Care Document ---
Author Name Unknown Organization [facility] Address [address] [place] [address]- Care Team Providers Care Mushroom Sorter Grader Name Role Phone Joselo Mckeon DO Uriel Primary Care Physician [phone] [facility] Date(s): 12/04/20 - 01/03/21 [facility] [address] [place], [place] [address] Attending Physician: Phyllis Michael Admitting Physician: AdmtrPhyllis Referring Physician: Admtr, [...] 14:05:00 EDT, Aerosol, Route to Pharmacy Electronically, [id number], [facility]/pharmacy #[id number], 169, cm, 02/20/20 14:46:00 EDT, [...]
--- OUTSIDE RECORDS SUMMARY | 2023-07-31 18:15 | XMS_ITS | Continuity of Care Document ---
Author Name Unknown Organization [facility] Address [address] [address]- Care Team Providers Care Gummed Tape Press Operator Name Role Phone Joselo Mckeon DO Primary Care Physician [place] [facility] [place] 12[place]10[place]19 - 12/17/[address] [address]- [place] Attending Physician: Silke PENNINGTON, Katya Schultz [...] oldest [Reference Range]: 1 Height 169.0 cm (12/10/19 2:00 PM) Weight 77 kg (12/10/19 2:00 PM) Oxygen Saturation [94-100 %] 98 % (12/10/19 2:00 PM) Pulse Rate [55-90 bpm] 90 bpm (12/10/19 2:00 PM) Body Mass Index [18.5-24.99] 26.96 *H* (12/10/19 2:00 PM) Blood Pressure [90-138/55-84 mm Hg] 140/ 80mm Hg *H* (12/10/19 2:00 PM) Mode of Delivery (Oxygen) Room air (12/10/19 2:00 PM) Blood pressure sites Arm, right (12/10/19 2:00 PM) Weight Obtained Via Standing scale (12/10/19 2:00 PM) Social History Social History Type Response Smoking Status Current every day radha melton entered on: 10/29/14 Sex
--- OUTSIDE RECORDS SUMMARY | 2023-07-31 18:15 | XMS_ITS | Continuity of Care Document ---
Author Name Unknown Organization [facility] Address [address] [address]- Care Team Providers Care Engraver Tender Name Role Phone Joselo Mckeon DO Primary Care Physician En[place] [facility] [place] Date(s): 01/30/20 - 03/21/20 [place] [id number] [address]- [place] Attending Physician: Silke PENNINGTON, Katya Schultz [...]
== END 2023-07-31 18:14 | disposition left against medical advice (07) ==
LOC: HO.ED 18:13
PROVIDERS: Physician Assistant; Emergency Provider Emergency Medicine; PCP Internal Medicine
DX: M25.511 Pain in right shoulder (principal); M25.512 Pain in left shoulder; R51.9 Headache, unspecified; M54.2 Cervicalgia; Z20.822 Contact with and (suspected) exposure to COVID-19; Z11.52 Encounter for screening for COVID-19; Z79.899 Other long term (current) drug therapy
CPT/HCPCS: 0241U; 36415; 70450; 72125; 80053; 82550; 83690; 83735; 84702; 85025; 99281; 99284

== ENCOUNTER 2023-08-01 09:50 | Outpatient (REF) | payer BC, SELFPAY ==
[2023-08-01 13:49] LABS: Rheumatoid Factor < 13.0 IU/mL (<15.0)
[2023-08-01 13:57] LABS: C Reactive Protein 1.13 mg/dL (< or = 0.50)
[2023-08-01 14:22] LABS: Erythrocyte Sedimentation Rate 2 MM/HR (0-20)
[2023-08-02 22:34] LABS: Lyme Abs Screen <0.90 index
[2023-08-07 12:29] LABS: Anti Nuclear Antibody Screen NEGATIVE (NEGATIVE)
== END 2023-08-01 09:51 | disposition home or self-care (01) ==
LOC: HO.MANLDS 09:50
PROVIDERS: Visit Provider Internal Medicine
DX: G95.9 Disease of spinal cord, unspecified (principal)
CPT/HCPCS: 36415; 85652; 86038; 86140; 86431; 86617; 86618

== ENCOUNTER 2023-08-14 13:54 | Outpatient (REF) | payer BC, SELFPAY ==
[2023-08-14 17:33] LABS: MANUAL DIFF FLAG NO
[2023-08-14 17:43] LABS: Basophils Percent Auto 0.5 % (0-2); Eosinophils Absolute Auto 0.1 X10*3/uL (0.0-0.4); Eosinophils Percent Auto 1.5 % (0-4); Hematocrit 40.3 % (37.0-47.0); Hemoglobin 13.1 g/dl (12.0-16.0); Imm Gran Abs Auto 0.02 X10*3/uL (0.00-0.03); Imm Gran Pct Auto 0.3 % (0.0-0.4); Lymphocytes Absolute Auto 2.2 X10*3/uL (1.2-4.9); Lymphocytes Percent Auto 37.6 % (20-40); Mean Corpuscular HGB Conc 32.5 g/dl (31.0-35.0); Mean Corpuscular Hemoglobin 30.6 pg (27.0-33.0); Mean Corpuscular Volume 94.2 fL (80.0-98.0); Mean Platelet Volume 11.2 fL (9.4-12.3); Monocytes Absolute Auto 0.4 X10*3/uL (0.1-1.2); Monocytes Percent Auto 7.4 % (2-11); Neutrophils Absolute Auto 3.1 x10*3/uL (2.0-8.3); Neutrophils Percent Auto 52.7 % (45-73); Platelet Count 231 X10*3/uL (160-400); Red Blood Count 4.28 X10*6/uL (4.20-5.50); Red Cell Distribution Width 14.1 % (11.0-16.0)
[2023-08-14 17:47] LABS: Appearance Urine Clear; Color Urine Dark Yellow; Glucose Urine UA Negative (Negative); Leukocyte Esterase Urine Trace (Negative); Nitrite Urine Negative (Negative); PH 5.5 (5.0-9.0); Specific Gravity - Urine 1.025 (1.005-1.025); UMIC TRIGGER UACC YES; Urine Blood Negative (Negative); Urine Ketones Negative (Negative); Urine Protein Negative (Neg-Trace)
[2023-08-14 17:49] LABS: Bacteria Urine None Seen (None Seen); Hyaline Casts Urine 0-2 /LPF (0-2); RBC Urine 0-2 /HPF (0-2); Squamous Epithelial Cell Urine 0-2 /HPF (0-2); WBC Urine 0-5 /HPF (0-5)
[2023-08-14 17:56] LABS: Alanine Aminotransferase 60 U/L (0-31); Albumin Level 3.9 g/dL (3.5-5.0); Alkaline Phosphatase 99 U/L (39-117); Anion Gap 8 (12-20); Aspartate Amino Transferase 29 U/L (5-31); Bilirubin Total 0.5 mg/dL (0.0-1.0); Blood Urea Nitrogen 12 mg/dL (9-16); C Reactive Protein 0.28 mg/dL (< or = 0.50); Calcium 9.3 mg/dL (8.4-10.2); Carbon Dioxide 28 mmol/L (22-29); Chloride 108 mmol/L (96-108); Estimated Glomerular Filt Rate > 60; Glucose Random 89 mg/dL (60-115); Iron 134 mcg/dL (30-160); Percent Iron Saturation 48 % (15-50); Potassium 4.2 mmol/L (3.3-5.1); Sodium 140 mmol/L (135-145); Total Iron Binding Capacity 282 mcg/dL (228-428); Total Protein 6.9 g/dL (6.5-8.0); Unsaturated Iron Binding 148 ug/dL
[2023-08-14 18:25] LABS: Ferritin 118 ng/mL (10-250)
[2023-08-14 18:29] LABS: Erythrocyte Sedimentation Rate 5 MM/HR (0-20)
[2023-08-14 19:34] LABS: Gamma Glutamyl Transpeptidase 93 U/L (7-33)
[2023-08-15 09:17] LABS: HBS Num1 32.82 mIU/mL (0-7.99); HBc Num1 0.13 S/CO (0.00-0.79); Hepatitis A Antibody IgM 0.14 Index (0-0.79); Hepatitis B Core Antibody Nonreactive (Nonreactive); Hepatitis B Surface Antigen Negative (Negative); ~HepC Num1 0.17 S/CO (0.00-0.79); ~Hepatitis A Antibody IgM Nonreactive (Nonreactive); ~Hepatitis B Surface Antibody REACTIVE (Nonreactive); ~Hepatitis C Antibody Nonreactive (Nonreactive)
== END 2023-08-14 13:55 | disposition home or self-care (01) ==
LOC: HO.MANLDS 13:54
PROVIDERS: Visit Provider Physician Assistant
DX: R30.0 Dysuria (principal); K59.09 Other constipation; R74.01 Elevation of levels of liver transaminase levels
CPT/HCPCS: 36415; 80053; 81001; 82728; 82977; 83540; 83970; 85025; 85652; 86140; 86704; 86706; 86709; 86803; 87340

== ENCOUNTER 2024-08-19 10:50 | Outpatient (REF) | payer BC, SELFPAY ==
--- OUTSIDE RECORDS SUMMARY | 2024-08-19 13:10 | XMS_ITS | Continuity of Care Document ---
Author Organization [place] [facility], [facility] Address [address] [facility] [address] [place] [address] Assessment No assessment recorded. Plan of Treatment Reminders Order Date Submit Date Provider Last Modified By Organization Details Last Modified Time Details Appointments Hospital F/U 2024 10:00A MONIK CHRISTENSEN Not available Not available Not available FOLLOW UP 15 2024 02:15P M MONIK HUYNH Not available Not available Not available Lab None recorded. Referral None recorded. Procedures None recorded. Surgeries None recorded. Imaging CT, chest, w/o contrast [address] [facility], [address] [place], [address], 08/18/2024 09:15:11 Medication Orders nicotine 21 mg/24 hr daily transderm al patch 2024 025 CALISTASHABANA Brizuelaashwini [address] ([facility] [address]27), [address] [place], [place], [id number], 08/05/2024 11:06:41 prednison e 10 mg tablet 2024 025 CALISTASHABANA Murillo [address] ([facility] 827), [address] [place], [place], [id number], 08/13/2024 14:41:21 Zithromax Z-Jamie 250 mg tablet 2024 025 CALISTA Chidi [address] ([facility] 827), [address] [place], [place], [id number], 08/13/2024 14:41:04 gabapenti n 300 mg capsule 2024 025 CALISTA Murillo [address] ([facility] 827), [address] [place], [place], [phone], 08/05/2024 11:01:29 Patient TargetsNo targets recorded. Patient InstructionsNo instructions recorded. Reason for Referral None Reported. Results Created Date Observation Date Name Description Value Unit Range Abnormal Flag Note LastModifiedBy Organization Detail LastModifiedTime 07/30/1907/30/2024 XR, chest , 2 view No observ ation record ed. [email or web address] [facility] [address] [facility] [address], [place], [address], 07/30/2024 13:47:42 Result Notes None recorded. Problems Name Problem SNOMED Code Status Onset Date Resolution Date Notes Provider Name and Address Organization Details Recorded Time Tobacco dependen ce syndrome 36599094 Active 2017 Joselo Mckeon DO [address] [place] [address], [address], [facility] 8 11:41:05 Carpal tunnel syndrome 26714612 Active 2018 Joselo Mckeon DO [address] [place] [address], [address], [facility] 9 11:21:46 Lumbosac ral radiculi tis 33378543 Active 2018 Joselo Mckeon DO [address] [place] [address], [address], [facility] 9 13:39:48 Effusion of joint of right knee 2043362739 89732 Active 2018 Joselo Mckeon DO [address] [place] [address], [address], [facility] 9 13:40:09 COVID-19 932893142 Active 202006/10/[facility] 1 08:44:33 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 Active 2021 Joselo Mckeon, DO [address] [place], [address], [facility] 2 12:32:14 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 Active 2021 Joselo Mckeon, DO [address] [place] [address], [address], [facility] 2 12:33:25 Inflamma tion of sacroili ac joint 77672650 Active 2021 Joselo Mckeon, DO [address] [place] [address], [address], [facility] 2 12:39:14 Cough 85029271 Active 2021 MONIK HUYNH [address] [place] [address], [address], [facility] 2 15:19:41 Pneumoni tis 377943272 Active 2021 Joselo Mckeon, DO [address] [place] [address], [address], [facility] 2 23:01:02 Postoper ative wound infectio n 67524525 Active 2021 Joselo Mckeon, DO [address] [place] [address], [address], [facility] 2 12:18:27 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 1381950329 10036 Active 2021 Joselo Mkceon, DO [address] [place] [address], [address], [facility] 2 12:21:16 Surgical incision wound of skin 2169845784 00 Active 2021 MONIK HUYNH [address] [place] [address], [address], [facility] 2 10:38:41 Sense of smell altered 859874508 Active 2022 MONIK HUYNH [address] [place], [address], [facility] 3 16:54:35 Serous otitis media 91919503 Active 2022 MONIK HUYNH [address] [place], [address], [facility] 3 16:54:55 Fatigue 70125259 Active 2022 MONIK HUYNH [address] [place], [address], [facility] 3 16:56:09 Dysmenor carlo 458623015 Active 2022 MONIK HUYNH [address] [place] [address], [address], [facility] 3 17:04:09 Multiple joint pain 05687736 Active 2022 Joselo Mckeon, DO [address] [place] [address], [address], [facility] 3 11:53:02 Chronic constipa tion 574054292 Active 2022 Joselo Mckeon, DO [address] [place] [address], [address], [facility] 3 12:36:43 Varicose veins of lower extremit y 95756904 Active 2022 MONIK HUYNH [address] [place], [address], [facility] 3 11:52:45 Middle ear effusion 0409890238 Active 2022 MONIK HUYNH [address] [place] [address], [address], [facility] 3 10:45:26 Irritabl e bowel syndrome characte rized by constipa tion 584322177 Active 2022 MONIK HUYNH [address] [place], [address], [facility] 3 10:49:50 Varicose veins of lower extremit y 68233334 Active 2022 MONIK HUYNH [address] [place], [address], [facility] 3 10:49:57 Allergic rhinitis 74304082 Active 2022 MONIK HUYNH [address] [place], [address], [facility] 3 09:11:56 Candidia sis of skin 26837801 Active 2022 MONIK HUYNH [address] [place], [address], [facility] 3 09:17:19 Pain of ear 541033766 Active 2022 MONIK HUYNH [address] [place], [address], [facility] 3 10:45:53 Sprain of right ankle 3340540161 2711301 Active 2023 MONIK HUYNH [address] [place] [address], [address], [facility] 4 14:39:22 Cervical myelopat hy 866512408 Active 2023 Joselo Mckeon DO [address] [place], [address], [facility] 4 09:34:41 Liver enzymes level above referenc e range 031205012 Active 2023 MONIK HUYNH [address] [place] [address], [address], [facility] 4 13:38:49 Constipa tion 05023507 Active 2023 MONIK HUYNH [address] [place] [address], [address], [facility] 4 13:39:54 Dysuria 47667859 Active 2023 MONIK HUYNH [address] [place], [address], [facility] 4 13:48:18 Umbilica l hernia 012710494 Active 2023 MONIK HUYNH [address] [place], [address], [facility] 4 10:43:27 Spasm of back muscles 754023116 Active 2023 MONIK HUYNH [address] [place], [address], [facility] 4 10:49:31 Acne 64246055 Active 2023 MONIK HUYNH [address] [place] [address], [address], [facility] 4 10:52:50 Acute otitis media 1196569 Active 2023 MONIK HUYNH [address] [place] [address], [address], [facility] 4 11:21:42 Chronic sinusiti s 05696042 Active 2023 MONIK HUYNH [address] [place], [address], [facility] 4 11:23:40 Cervical radiculo ivanna 97028757 Active 2023 MONIK HUYNH [address] [place], [address], [facility] 4 11:25:59 Pain in finger of right hand 8748999428 79213 Active 2023 MONIK HUYNH [address] [place], [address], [facility] 4 10:55:31 Closed fracture of distal phalanx of ring finger of right hand 4001999100 8802537 Active 2023 MONIK HUYNH [address] [place], [address], [facility] 4 09:58:17 Acute sinusiti s 85494411 Active 2023 MONIK HUYNH [address] [place], [address], [facility] 4 09:42:52 Degenera tion of lumbar interver tebral disc 13617959 Active 2023 MONIK HUYNH [address] [place], [address], [facility] 4 11:12:53 Onychomy cosis 303466913 Active 2023 MONIK HUYNH [address] [place], [address], [facility] 4 11:19:35 Gastroes ophageal reflux disease 750549881 Active 2023 MONIK HUYNH [address] [place], [address], [facility] 4 11:45:29 Low back pain 949936919 Active 2023 MONIK HUYNH [address] [place], [address], [facility] 4 11:52:36 Pain of left knee joint 1927396723 25117 Active 2024 Joselo Mckeon, [address] [place], [address], [facility] 5 12:00:04 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 798173269 Active 2024 MONIK HUYNH [address] [place], [address], [facility] 5 10:52:38 Bilatera l foot drop 0676430925 1816256 Active 2024 MONIK HUYNH [address] [place], [address], [facility] 5 10:52:38 Asthma 679909348 Active 2024 MONIK HUYNH [address] [place], [address], [facility] 5 10:14:35 Influenz a caused by Influenz a A virus 623865413 Active 2024 MONIK HUYNH [address] [place] [address], [address], [facility] 5 10:17:23 Acute bronchit is 56942541 Active 2024 MONIK HUYNH [address] [place] [address], [address], [facility] 5 10:20:18 Dyspnea 436491545 Active 2024 MONIK HUYNH [address] [place], [address], [facility] 5 10:57:51 Pulmonar y embolism 40164588 Active 2024 MONIK HUYNH [address] [place] [address], [address], [facility] 5 14:32:01 Acute pulmonar y embolism 831430093 Active 2024 MONIK HUYNH [address] [place] [address], [address], [facility] 5 08:42:40 Cor pulmonal e 08066182 Active 2024 MONIK HUYNH [address] [place] [address], [address], [facility] 5 08:43:00 Blood coagulat ion disorder 26139267 Active 2024 MONIK HUYNH [address] [place], [address], [facility] 5 08:43:39 Migraine 29038599 Active 2024 MONIK HUYNH [address] [place], [address], [facility] 5 10:22:38 Pruritic rash 53561771 Active 2024 MONIK HUYNH [address] [place], [address], [facility] 5 10:37:36 Follicul itis 61897063 Active 2024 MONIK HUYNH [address] [place], [address], [facility] 5 10:39:39 Substanc e abuse 26955798 Completed 201702/08/2018 narcotic Joselo Mckeon DO [address] [place] [address], [address], [facility] 8 11:40:11 Fibromya lgia 650540755 [facility] 08:24:16 Bursitis 19119037 Active 2017 R hip, trochant ollie M70.61 [facility] 8 08:24:54 Herpes simplex 93074422 Active 2017 genital [facility] 8 08:25:25 Psoriati c arthriti s 280499194 Active 2017 [facility] 8 08:25:42 Depressi ve disorder 15122681 Active 2017 Joselo Mckeon DO [address] [place] [address], [address], [facility] 8 11:47:42 Anxiety disorder 966483907 Active 2017 Joselo Mckeon DO [address] [place], [address], [facility] 8 11:47:54 Problem Notes None recorded. Procedures Surgical History Date Name Laterality Status Provider Name and Address Organization Details Recorded Time 11/13/2018 Date of Last Pap Smear completed Darlene Igor [facility] 01/17/2019 14:01:49 Imaging Results None recorded. Procedure Notes None recorded. Medical Equipment None Reported. Allergies Allergen ID Allergen Name Allergen Category Reaction Reaction Severity Criticality Documentation Date Start Date Code Code System Note Provider Name and Address Organization Details Recorded Time 1450 Product containin g penicilli n (product) medicatio n Not available Not available Not available 11/02/2017 42988 8001 SNOMED Blanka Gentile [facility] 8 08:22:53 7229 Sudafed medicatio n Not available Not available Not available 02/09/202390378 2 RxNorm MONIK HUYNH [address] [place], [address], [facility] 3 10:47:51 Medications Name Sig Start Date Stop Date Status Note LastModified by Organization Details LastModified Time compound drug 11/02 completed Not Available Not Available Not Available celecoxib 200 mg capsule TAKE 1 CAPSULE BY MOUTH TWICE DAILY 12/24 completed Not Available Not Available Not Available cyclobenz aprine 10 mg tablet TAKE 1 TABLET BY MOUTH THREE TIMES DAILY 09/17 completed Not Available Not Available Not Available budesonid e 32 mcg/actua tion nasal spray PLACE 1 SPRAY IN NOSTRIL DAILY 04/17 completed Not Available Not Available Not Available methocarb naomi 500 mg tablet TAKE 2 TABLETS BY MOUTH FOUR TIMES DAILY NEEDED active Not Available Not Available No t Available venlafaxi ne ER 37.5 mg capsule,e xtended release 24 hr TAKE 1 CAPSULE BY MOUTH EVERY DAY 09/14 completed Not Available Not Available Not Available prednison e 10 mg tablet 50 mg x 3 days40 mg X 3 days 30 mg X 3 days 20 mg X 3 days 10 mg X 3 days 08/13 completed Not Available Not Available Not Available venlafaxi ne ER 75 mg capsule,e xtended release 24 hr TAKE 1 CAPSULE BY MOUTH EVERY DAY 09/14 completed Not Available Not Available Not Available doxycycli ne hyclate 100 mg capsule TAKE 1 CAPSULE BY MOUTH TWICE DAILY FOR 10 DAYS 12/24 completed Not Available Not Available Not Available cefuroxim e axetil 250 mg tablet 11/02 completed Not Available Not Available Not Available nicotine 14 mg/24 hr daily transderm al patch Apply 1 patch every day by transder mal route for 14 days. 12/24 completed Not Available Not Available Not Available nabumeton e 750 mg tablet TAKE 1 TABLET BY MOUTH TWICE A DAY 02/03 completed Not Available Not Available Not Available clindamyc in HCl 300 mg capsule TAKE 1 CAPSULE BY MOUTH EVERY 6 HOURS FOR 7 DAYS 12/24 completed Not Available Not Available Not Available albuterol sulfate 2.5 mg/3 mL (0.083 %) solution for nebulizat ion USE 3 ML VIA NEBULIZE R THREE TIMES DAILY FOR 14 DAYS DIRECTED active Not Available Not Available No t Available azithromy angela 250 mg tablet TAKE 2 TABLETS (500 MG) BY ORAL ROUTE ONCE DAILY FOR 1 DAY THEN 1 TABLET (250 MG) BY ORAL ROUTE ONCE DAILY FOR 4 DAYS 08/13 completed Not Available Not Available Not Available fluconazo le 150 mg tablet TAKE 1 TABLET BY MOUTH EVERY DAY FOR 10 DAYS 08/19 completed Not Available Not Available Not Available benzonata te 200 mg capsule TAKE 1 CAPSULE BY MOUTH THREE TIMES DAILY FOR 7 DAYS NEEDED 08/19 completed Not Available Not Available Not Available Nystop 100,000 unit/gram topical powder APPLY TOPICALL Y TO THE AFFECTED AREA TWICE DAILY 04/29 completed Not Available Not Available Not Available ondansetr on HCl 8 mg tablet TAKE 1 TABLET TWICE A DAY BY ORAL ROUTE NEEDED FOR 10 DAYS. 02/03 completed Not Available Not Available Not Available meloxicam 15 mg tablet TAKE 1 TABLET (15 MG TOTAL) BY MOUTH DAILY. 05/26 completed Not Available Not Available Not Available sucralfat e 1 gram tablet TAKE 1 TABLET BY MOUTH FOUR TIMES DAILY FOR 7 DAYS 07/08 completed Not Available Not Available Not Available famotidin e 40 mg tablet TAKE 1 TABLET BY MOUTH EVERY DAY 2024 active Not Available Not Available Not Avai lable prednison e 20 mg tablet Take 1 tablet every day by oral route as needed for 30 days. 2024 active Not Available Not Available Not Avai lable clobetaso l 0.05 % topical cream APPLY THIN COAT TO AFFECTED AREA TWICE A DAY 08/11 completed Not Available Not Available Not Available clindamyc in HCl 150 mg capsule 11/02 completed Not Available Not Available Not Available leflunomi de 10 mg tablet TAKE 1 TABLET BY MOUTH DAILY WITH FOOD 08/19 completed Not Available Not Available Not Available valacyclo vir 500 mg tablet TAKE 1 TABLET BY MOUTH DAILY active Not Available Not Available No t Available ciproflox acin 500 mg tablet TAKE 1 TABLET BY MOUTH EVERY 12 HOURS FOR 10 DAYS 04/01 completed Not Available Not Available Not Available sulfameth oxazole 800 mg-trimet hoprim 160 mg tablet TAKE 1 TABLET BY MOUTH EVERY 12 HOURS FOR 7 DAYS 08/05 completed Not Available Not Available Not Available leflunomi de 20 mg tablet 06/10 completed Not Available Not Available Not Available Nicotrol 10 mg inhalatio n cartridge INHALE 10 CARTRIDG ES EVERY DAY BY INHALATI ON ROUTE NEEDED FOR 30 DAYS. active Not Available Not Available No t Available tramadol 50 mg tablet TAKE 1 TABLET BY MOUTH EVERY 8 HOURS FOR 14 DAYS NEEDED active Not Available Not Available No t Available acetamino phen 500 mg tablet 09/14 completed Not Available Not Available Not Available butalbita l-acetami nophen-ca ffeine 50 mg-325 mg-40 mg tablet Take 1 tablet 3 times a day by oral route as needed for 30 days. 2024 active Not Available Not Available Not Avai lable ketorolac 10 mg tablet Take 1 tablet every 6 hours by oral route for 7 days. 08/01 completed Not Available Not Available Not Available prednison e 10 mg tablets in a dose pack Take 4 tablets every day by oral route as directed for 12 days. 12/26 completed Not Available Not Available Not Available terbinafi ne HCl 250 mg tablet TAKE 1 TABLET BY MOUTH EVERY DAY 04/29 completed Not Available Not Available Not Available alprazola m 0.25 mg tablet Take 1 tablet 3 times a day by oral route as needed for 6 days. 09/15 completed Not Available Not Available Not Available amitripty line 25 mg tablet TAKE 1 TABLET BY MOUTH EVERY DAY active Not Available Not Available No t Available lorazepam 0.5 mg tablet TAKE 2 TABLETS (1 MG TOTAL) BY MOUTH NIGHTLY AT BEDTIME NEEDED FOR ANXIETY. 09/14 completed Not Available Not Available Not Available methocarb naomi 750 mg tablet TAKE 1 TABLET BY MOUTH THREE TIMES DAILY active Not Available Not Available No t Available triamcino lone acetonide 0.1 % dental paste 11/02 completed Not Available Not Available Not Available imiquimod 5 % topical cream packet APPLY 1 PACKET TOPICALL Y 3 TIMES A WEEK. WASH HANDS PRIOR TO AND FOLLOWIN G APPLICAT ION. active Not Available Not Available No t Available benzonata te 100 mg capsule TAKE 1 CAPSULE BY MOUTH 3 TIMES A DAY NEEDED. 02/03 completed Not Available Not Available Not Available cephalexi n 500 mg capsule TAKE 1 CAPSULE BY MOUTH EVERY 6 HOURS FOR 10 DAYS 07/26 completed Not Available Not Available Not Available pantopraz ole 40 mg tablet,de layed release TAKE 1 TABLET BY MOUTH EVERY DAY active Not Available Not Available No t Available clotrimaz ole-betam ethasone 1 %-0.05 % topical cream APPLY TOPICALL Y TO THE AFFECTED AND SURROUND ING AREAS TWICE DAILY IN THE MORNING AND IN THE EVENING FOR 2 WEEKS 04/01 completed Not Available Not Available Not Available lidocaine 5 % topical patch 2024 active Not Available Not Available Not Avai lable nicotine 21 mg/24 hr daily transderm al patch APPLY 1 PATCH EVERY DAY FOR 6 WEEKS THEN USE 14MG PATCHES active Not Available Not Available No t Available zafirluka st 20 mg tablet TAKE 1 TABLET BY MOUTH TWICE DAILY 05/22 completed Not Available Not Available Not Available gabapenti n 300 mg capsule TAKE 1 CAPSULE BY MOUTH EVERY DAY IN THE EVENING active Not Available Not Available No t Available omeprazol e 20 mg capsule,d elayed release Take 1 capsule every day by oral route for 30 days. 09/14 completed Not Available Not Available Not Available diclofena c sodium 75 mg tablet,de layed release TAKE 1 TABLET BY MOUTH TWICE DAILY DIRECTED 08/13 completed Not Available Not Available Not Available folic acid 1 mg tablet Take one tablet daily. 09/14 completed Not Available Not Available Not Available monteluka st 10 mg tablet TAKE 1 TABLET BY MOUTH EVERY DAY 03/13 completed Not Available Not Available Not Available mupirocin 2 % topical ointment APPLY A SMALL AMOUNT TO THE AFFECTED AREA BY TOPICAL ROUTE 3 TIMES PER DAY 2024 active Not Available Not Available Not Avai lable mirtazapi ne 15 mg tablet 11/02 completed Not Available Not Available Not Available gabapenti n 100 mg capsule TAKE 1 CAPSULE BY MOUTH EVERY DAY 04/01 completed Not Available Not Available Not Available oxaprozin 600 mg tablet TAKE 2 TABLETS BY MOUTH DAILY 02/03 completed Not Available Not Available Not Available ibuprofen 600 mg tablet 11/02 completed Not Available Not Available Not Available levofloxa angela 500 mg tablet TAKE 1 TABLET BY MOUTH EVERY 24 HOURS FOR 7 DAYS 02/03 completed Not Available Not Available Not Available methylpre dnisolone 4 mg tablets in a dose pack FOLLOW PACKAGE DIRECTIO NS 04/01 completed Not Available Not Available Not Available albuterol sulfate HFA 90 mcg/actua tion aerosol inhaler INHALE 2 PUFFS INTO THE LUNGS EVERY 6 HRS NEEDED FOR WHEEZING /SHORTNE SS OF BREATH 02/03 completed Not Available Not Available Not Available celecoxib 100 mg capsule TAKE 1 CAPSULE BY MOUTH TWICE DAILY 03/13 completed increase to 400 mg Not Available Not Available Not Available cefdinir 300 mg capsule TAKE 1 CAPSULE BY MOUTH TWICE A DAY FOR 10 DAYS. TAKE WITH FOOD, YOGURT, PROBIOTI CS. FINISH ALL 10/28 completed Not Available Not Available Not Available etodolac 500 mg tablet Take 0.75 tablets twice a day by oral route for 30 days. 08/01 completed Not Available Not Available Not Available diazepam 5 mg tablet TAKE 1 TABLET BY MOUTH EVERY DAY NEEDED active Not Available Not Available No t Available nicotine 7 mg/24 hr daily transderm al patch Apply 1 patch every day by transder mal route for 14 days. 04/08 completed Not Available Not Available Not Available DentaGel 1.1 % 09/14 completed Not Available Not Available Not Available nicotine (polacril ex) 4 mg buccal lozenge active Not Available Not Available Not Available ciproflox acin 0.3 %-dexamet hasone 0.1 % ear drops,[employer] pension SHAKE LIQUID AND INSTILL 4 DROPS TO AFFECTED EAR TWICE DAILY FOR 7 DAYS 05/22 completed Not Available Not Available Not Available duloxetin e 20 mg capsule,d elayed release 03/12 completed Not Available Not Available Not Available duloxetin e 30 mg capsule,d elayed release 11/02 completed Not Available Not Available Not Available duloxetin e 60 mg capsule,d elayed release Take 1 capsule every day by oral route for 30 days. 03/12 completed Not Available Not Available Not Available lactulose 10 gram/15 mL oral solution TAKE 15 ML BY MOUTH TWICE DAILY NEEDED active Not Available Not Available No t Available Flovent HFA 110 mcg/actua tion aerosol inhaler INHALE 1 PUFF INTO THE LUNGS TWICE A DAY FOR 30 DAYS active PRN Not Available Not Available No t Available tizanidin e 6 mg capsule Take 1 capsule twice a day by oral route at bedtime for 30 days. 12/29 completed Not Available Not Available Not Available Boostrix Tdap 2.5 Lf unit-8 mcg-5 Lf/0.5 mL intramusc ular syringe PHARMACY ADMINIST ERED 09/14 completed Not Available Not Available Not Available pregabali n 25 mg capsule Take 1 capsule every day by oral route. 12/26 completed 07/26/22 - restarte d but was original ly prescrib ed by jared maradiaga doctor she no longer sees Not Available Not Available Not Available pregabali n 75 mg capsule TAKE 1 CAPSULE BY MOUTH TWICE A DAY FOR 30 DAYS 12/26 completed Not Available Not Available Not Available pregabali n 150 mg capsule TAKE 1 CAPSULE BY MOUTH TWICE A DAY 05/26 completed Not Available Not Available Not Available Lyrica 50 mg capsule 11/02 completed Not Available Not Available Not Available Vitamin D active Not Available Not Minerva ilable Not Available multivita min active Not Available Not Available Not Available carisopro dol 250 mg tablet Take 1 tablet 3 times a day by oral route as needed for 14 days. 07/08 completed Not Available Not Available Not Available diclofena c 1 % topical gel APPLY 2 GRAM TO THE AFFECTED AREA(S) BY TOPICAL ROUTE 4 TIMES PER DAY 09/14 completed Not Available Not Available Not Available Savella 25 mg tablet 03/12 completed Not Available Not Available Not Available Savella 12.5 mg (5)-25 mg(8)-50m g(42) tablets in a dose pack Take 1 startr pk every day by oral route as directed for 30 days. 07/26 completed Not Available Not Available Not Available buprenorp delisa 2 mg-naloxo ne 0.5 mg sub[address]ua l film PLACE THREE FILMS UNDER THE TONGUE EVERY DAY 02/03 completed Not Available Not Available Not Available buprenorp delisa 8 mg-naloxo ne 2 [address]ua l film PLACE 1.25 FILMS UNDER TONGUE EVERY DAY active Not Available Not Available No t Available lactulose 10 gram/15 mL (15 mL) oral solution take 15 ml twice a day as needed 02/03 completed Not Available Not Available Not Available Linzess 145 mcg capsule 11/02 completed Not Available Not Available Not Available Suboxone 4 mg-1 mg sublingua l film 01/17 completed Not Available Not Available Not Available Eliquis 5 mg tablet TAKE 2 TABLETS BY MOUTH TWICE DAILY FOR 5 DAYS THEN DECREASE TO DOSE TO 1 TABLET TWICE DAILY THEREAFT ER active Not Available Not Available No t Available Vitamin B12 active Not Available Not Available Not Available Linzess 72 mcg capsule TAKE 1 CAPSULE BY MOUTH EVERY DAY 12/26 completed Not Available Not Available Not Available Flucelvax Quad [id number] (PF) 60 mcg (15 mcg x 4)/0.5 mL IM syringe 12/28 completed Not Available Not Available Not Available Flowflex COVID-19 Antigen Home Test kit TEST DIRECTED TODAY 09/15 completed Not Available Not Available Not Available methocarb naomi 1,000 mg tablet Take 1 tablet 4 times a day by oral route as needed for 90 days. 04/01 completed Not Available Not Available Not Available Vitals Date Recorded Body height Body mass index (BMI) Body weight Heart rate Oxygen saturation Oxygen saturation in Arterial blood by Pulse oximetry Systolic blood pressure Diastolic blood pressure Provider Name and Address Organization Details Last Updated DateTime 5 167.64 cm 30.1 kg/m2 76273.6 2 g 105 /min 98 % 98 % 136 mm[Hg] 78 mm[Hg] Nette Baig [facility] 5 10:48:50 Social History Question Answer Notes LastModified by Organizat ion Details LastModified Time Tobacco Smoking Status Current Every Day Smoker Not Available [facility] 04/13/2020 03:36:23 What Was The Date Of Your Most Recent Tobacco Screening? 08/19/2024 [email or web address] Information not available 08/19/2024 How Much Tobacco Do You Smoke? 0.5 PPD Information not available 10/28/2021 Do You Or Have You Ever Used Any Other Forms Of Tobacco Or Nicotine? No Information not available 10/28/2021 Sex: Unknown Functional Status None recorded. Mental Status None recorded. Family History Nothing Reported. Medical History No medical history recorded. Gynecological History Statement/Question Response Date of Last Pap Smear 11/13/2018 Obstetrics History GPAL:G 0 P 0 0 0 0 Immunizations Vaccine Type Date Status Note Provider Nam e and Address Organization Details Recorded Time COVID-19, mRNA, LNP-S, PF, 100 mcg/0.5mL dose or 50 mcg/0.25mL dose 1 completed Jael topete [facility] 12/15/2020 08:36:36 COVID-19, mRNA, LNP-S, PF, 100 mcg/0.5mL dose or 50 mcg/0.25mL dose 1 completed Jael topete [facility] 12/15/2020 08:36:42 COVID-19, mRNA, LNP-S, PF, 100 mcg/0.5mL dose or 50 mcg/0.25mL dose 2 completed Darlene topete [facility] 10/28/2021 11:57:24 influenza, unspecified formulation 6 completed Ramona topete [facility] 07/26/2022 08:29:44 influenza, unspecified formulation 0 completed Ramona topete [facility] 07/26/2022 08:29:51 Tdap 0 completed Joselo Mckeon, [address] [facility], [place], [address], [facility] 09/14/2020 11:58:44 Past Encounters Encounter ID Performer Location Encounter Start Date Encounter Closed Date Diagnosis/Indication Diagnosis SNOMED-CT Code Diagnosis ICD10 Code Diagnosis Note [id number] MONIK HUYNH [facility] [address] [facility] [facility] [address] 07/08/2024 10:22:36 07/08/2024 11:13:10 Gastroesophageal reflux disease 840089197 K21.00 doing much better on the pantoprazo le Low back pain 896931017 M54.51 will trial amitriptyl ine and the lidocaine, hasn't started it yet, wanted to stagger the new meds Herniation of lumbar intervertebral disc with sciatica 5828198666 84981 M51.16 has a second opinion with Dr. Lewis Paralysis due to lesion of spinal cord 912446228 G95.9 stable, no major changes Bilateral foot drop 1563 385538 4491968 M21.371 has second opinion with Dr. Lewis Acute sinusitis 75224831 J01.01 will set start on abx and steriod combostero id should Dysuria 52952146 R30.0 will set up with urinalysis Pain of le ft knee joint 3863728623 48413 M25.562 knee brace and ice prnwill monitor [id number] MONIK HUYNH [facility] [address] [facility] [address] 07/30/2024 09:09:15 07/30/2024 10:40:32 Asthma 477154756 J45.21 will set up with a nebulizer Influenza caused by Influenza A virus 371483610 J09.X2 will set up wtih pred and cough suppressan t Fibromyalgia 409077588 M 79.7 refill Acute bronchitis 5851941 2 J20.4 repeat CXR given worsened symptoms [id number] MONIK HUYNH [facility] [address] 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 will start on nicotine 21 mg Health Concerns Section Related Observation LastModified by Organization Detai ls LastModified Time None Recorded Concern Status LastModified by Organization Details LastModified Time None Recorded Payers Encounter Date Sequence Insurance Name Policy Number Policy Powell Covered Member ID Powell Member ID Guarantor Name 08/05/2024 1 [employer]: ADVANTAGE BLUE (EPO) [id number] [employer] Antwan Howard [id number] Mariaa Howard Notes Date Note Type Note Provider Name and Address Organization Details Recorded Time 5 text/html 1 mos f/u the patient is doing her albuterol nebulizerthe patient reports she is still low energy recommended restarting prednisone taper, start on z-jamie as wellrecommended CT chest since she has had two CXR negative the patient is having more sob, chest tightness, dry coughthe patient reports that she has to sleep upright due to the coughing on OTC cough meds with the benzonatatepatient agrees to this planrecommended starting on mucinex veneer splicer for night time symptoms needs to fill gabapentin for her specialist who hasn't responded to refill requests MONIK HUYNH [address] [place] [address], [place], [address], [facility] 08/05/2024 11:16:23 OBGyn Episode No OBEpisode recorded.
--- OUTSIDE RECORDS SUMMARY | 2024-08-19 13:11 | XMS_ITS | Data Portability ---
Author Organization [facility] Home Service Address [address] [facility] [place] [address] Assessment Encounter Date Assessment Date Assessment LastModified by Organization Details LastModified Time 07/30/2024 07/30/2024 Patient agreed and verbally consents to this audio and video Telehealth appt via a secure platform [email or web address] Not available 07/30/2024 10:20:11 08/13/2024 08/13/2024 Patient agreed and verbally consents to this audio and video Telehealth appt via a secure platform [email or web address] Not available 08/13/2024 14:31:34 Plan of Treatment Reminders Order Date Submit Date Provider Last Modified By Organization Details Last Modified Time Details Appointments Hospital F/U 2024 10:00A M MONIK HUYNH Not available Not available Not available FOLLOW UP 15 2024 02:15P MONIK CHRISTENSEN Not available Not available Not available Lab PT/INR 2024 025 [facility], [address] [place] [address], [id number], 08/19/2024 10:35:09 plasminog en activator inhibitor -1 (magnus-1), plasma 2024 025 [facility], [address] [place] [address], [id number], 08/19/2024 10:35:09 CBC w/ auto diff 2024 025 [facility], [address] [place] [address], [address], 08/19/2024 10:35:09 prothromb in time 2024 [facility], [address] [place] [address], [id number], 08/19/2024 10:35:09 factor V mutation, blood or tissue 2024 [facility], [address] [place] [address], [id number], 08/19/2024 10:35:09 protein C + protein S, functiona l panel, plasma 2024 [facility], [address] [place] [address], [id number], 08/19/2024 10:35:09 PT/PTT, plasma 2024 [facility], [address] [place] [address], [address], 08/19/2024 10:35:09 D-dimer, quant, plasma - recheck from hospital, trending 2024 [facility], [address] [place] [address], [id number], 08/19/2024 10:35:09 Referral None recorded. Procedures None recorded. Surgeries None recorded. Imaging US, echocardi ogram 2024 [email or web address] [facility], [address] [place] [address], [id number], 08/19/2024 10:44:16 CT, angiogram , chest, w/wo contrast - 1 mos recheck 2024 [facility], [address] [place] [address], [address], 08/19/2024 10:01:08 CT, chest, w/o contrast 2024 [facility], [address] [place], [address], 08/18/2024 09:15:11 XR, chest, 2 view 2024 025 [facility], [address] [place], [address], 07/30/2024 13:05:08 Medication Orders prednison e 20 mg tablet 2024 025 [place] Gelacio [address] ([facility]), [address] [place], [place], [id number], 08/19/2024 10:38:54 butalbita l-acetami nophen-ca ffeine 50 mg-325 mg-40 mg tablet 2024 025 [place] [address] ([facility]), [address] [place], [place], [id number], 08/19/2024 10:35:09 mupirocin 2 % topical ointment 2024 025 [place] [address] ([facility]), [address] [place], [place], [id number], 08/19/2024 10:38:52 nicotine 21 mg/24 hr daily transderm al patch 2024 025 [place] [address] ([facility]), [address] [place], [place], [id number], 08/05/2024 11:06:41 prednison e 10 mg tablet 2024 025 [place] [address] ([facility]), [address] [place], [place], [id number], 08/13/2024 14:41:21 Zithromax Z-Jamie 250 mg tablet 2024 025 [place] Chidi Mcwilliams ([facility]), [address], [place], [id number], 08/13/2024 14:41:04 gabapenti n 300 mg capsule 2024 025 CALISTA Mcwilliams ([facility]), [address], [place], [id number], 08/05/2024 11:01:29 diazepam 5 mg tablet 2024 025 CALISTA Mcwilliams ([facility]), [address], [place], [id number], 07/30/2024 10:19:59 prednison e 10 mg tablet 2024 025 [email or web address] Mcwilliams ([facility]), [address], [place], [id number], 08/13/2024 14:41:05 benzonata te 200 mg capsule 2024 025 CALISTA Mcwilliams ([facility]), [address], [place], [id number], 08/19/2024 10:04:48 albuterol sulfate 2.5 mg/3 mL (0.083 %) solution for nebulizat ion 2024 025 CALISTA Mcwilliams ([facility]), [address], [place], [id number], 07/30/2024 10:19:59 sulfameth oxazole 800 mg-trimet hoprim 160 mg tablet 2024 025 CLAISTA Mcwilliams ([facility]), [address], [place], [id number], 08/05/2024 11:14:32 fluconazo le 150 mg tablet 2024 025 CALISTA Mcwilliams ([facility]27), [address] [place], [place], [id number], 08/19/2024 10:05:05 prednison e 10 mg tablet 2024 025 [email or web address] Chidi Mcwilliams ([facility]), [address] [place], [place], [id number], 08/13/2024 14:41:05 pantopraz ole 40 mg tablet,de layed release 2024 025 [facility] ([facility]), [address] [place], [place], [id number], 07/08/2024 10:51:52 Patient TargetsNo targets recorded. Patient InstructionsNo instructions recorded. Reason for Referral None Reported. Results Created Date Observation Date Name Description Value Unit Range Abnormal Flag Note LastModifiedBy Organization Detail LastModifiedTime 06/24/19 25 06/24/2024 XR, knee, 3 view No observ ation record ed. [email or web address] Not Available 06/25 14:01:23 07/30/19 25 07/30/2024 XR, chest , 2 view No observ ation record ed. [email or web address] [facility] [address] [place] [address] [address], [place], [address], 07/30/2024 13:47:42 Result Notes None recorded. Problems Name Problem SNOMED Code Status Onset Date Resolution Date Notes Provider Name and Address Organization Details Recorded Time Tobacco dependen ce syndrome 26461522 Active 2017 Joselo Mckeon DO [address] [place] [address], [address], [facility] 8 11:41:05 Carpal tunnel syndrome 73896842 Active 2018 Joselo Mckeon DO [address] [place] [address], [address], [facility] 9 11:21:46 Lumbosac ral radiculi tis 94098449 Active 2018 Joselo Mckeon, DO [address] [place] [address], [address], [facility] 9 13:39:48 Effusion of joint of right knee 9822058143 35878 Active 2018 Joselo Mckeon, DO [address] [place] [address], [address], [facility] 9 13:40:09 COVID-19 645448981 Active 202006/10/20 [facility] 1 08:44:33 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 Active 2021 Joselo Mckeon, DO [address] [place] [address], [address], [facility] 2 12:32:14 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 Active 2021 Joselo Mckeon, DO [address] [place] [address], [address], [facility] 2 12:33:25 Inflamma tion of sacroili ac joint 19511804 Active 2021 Joselo Mckeon, DO [address] [place] [address], [address], [facility] 2 12:39:14 Cough 27633190 Active 2021 MONIK HUYNH [address] [place] [address], [address], [facility] 2 15:19:41 Pneumoni tis 227661971 Active 2021 Joselo Mckeon DO [address] [place] [address], [address], [facility] 2 23:01:02 Postoper ative wound infectio n 53487985 Active 2021 Joselo Mckeon DO [address] [place] [address], [address], [facility] 2 12:18:27 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 9755031661 78341 Active 2021 Joselo Mckeon, [address] [place] [address], [address], [facility] 2 12:21:16 Surgical incision wound of skin 1238890869 00 Active 2021 MONIK HUYNH [address] [place] [address], [address], [facility] 2 10:38:41 Sense of smell altered 998246731 Active 2022 MONIK HUYNH [address] [place] [address], [address], [facility] 3 16:54:35 Serous otitis media 89245515 Active 2022 MONIK HUYNH [address] [place] [address], [address], [facility] 3 16:54:55 Fatigue 23282234 Active 2022 MONIK HUYNH [address] [place] [address], [address], [facility] 3 16:56:09 Dysmenor carlo 729789873 Active 2022 MONIK HUYNH [address] [place] [address], [address], [facility] 3 17:04:09 Multiple joint pain 56088043 Active 2022 Joselo Mckeon DO [address] [place] [address], [address], [facility] 3 11:53:02 Chronic constipa tion 818024029 Active 2022 Joselo Mckeon DO [address] [place] [address], [address], [facility] 3 12:36:43 Varicose veins of lower extremit y 35296896 Active 2022 MONIK HUYNH [address] [place], [address], [facility] 3 11:52:45 Middle ear effusion 6715790384 Active 2022 MONIK HUYNH [address] [place], [address], [facility] 3 10:45:26 Irritabl e bowel syndrome characte rized by constipa tion 763808899 Active 2022 MONIK HUYNH [address] [place], [address], [facility] 3 10:49:50 Varicose veins of lower extremit y 13659041 Active 2022 MONIK HUYNH [address] [place], [address], [facility] 3 10:49:57 Allergic rhinitis 51081903 Active 2022 MONIK HUYNH [address] [place], [address], [facility] 3 09:11:56 Candidia sis of skin 94403866 Active 2022 MONIK HUYNH [address] [place], [address], [facility] 3 09:17:19 Pain of ear 102635651 Active 2022 MONIK HUYNH [address] [place], [address], [facility] 3 10:45:53 Sprain of right ankle 6463569194 9140902 Active 2023 MONIK HUYNH [address] [place], [address], [facility] 4 14:39:22 Cervical myelopat hy 823267415 Active 2023 Joselo Mckeon, [address] [place], [address], [facility] 4 09:34:41 Liver enzymes level above referenc e range 145144898 Active 2023 MONIK HUYNH [address] [place], [address], [facility] 4 13:38:49 Constipa tion 70466114 Active 2023 MONIK HUYNH [address] [place], [address], [facility] 4 13:39:54 Dysuria 15827371 Active 2023 MONIK HUYNH [address] [place] [address], [address], [facility] 4 13:48:18 Umbilica l hernia 224915119 Active 2023 MONIK HUYNH [address] [place] [address], [address], [facility] 4 10:43:27 Spasm of back muscles 785801693 Active 2023 MONIK HUYNH [address] [place] [address], [address], [facility] 4 10:49:31 Acne 94690618 Active 2023 MONIK HUYNH [address] [place], [address], [facility] 4 10:52:50 Acute otitis media 5069516 Active 2023 MONIK HUYNH [address] [place] [address], [address], [facility] 4 11:21:42 Chronic sinusiti s 55302848 Active 2023 MONIK HUYNH [address] [place] [address], [address], [facility] 4 11:23:40 Cervical radiculo ivanna 82456519 Active 2023 MONIK HUYNH [address] [place], [address], [facility] 4 11:25:59 Pain in finger of right hand 2512486109 38892 Active 2023 MONIK HUYNH [address] [place] [address], [address], [facility] 4 10:55:31 Closed fracture of distal phalanx of ring finger of right hand 9079819827 6233849 Active 2023 MONIK HUYNH [address] [place] [address], [address], [facility] 4 09:58:17 Acute sinusiti s 34600829 Active 2023 MONIK HUYNH [address] [place] [address], [address], [facility] 4 09:42:52 Degenera tion of lumbar interver tebral disc 87020453 Active 2023 MONIK HUYNH [address] [place] [address], [address], [facility] 4 11:12:53 Onychomy cosis 431443075 Active 2023 MONIK HUYNH [address] [place] [address], [address], [facility] 4 11:19:35 Gastroes ophageal reflux disease 420206536 Active 2023 MONIK HUYNH [address] [place] [address], [address], [facility] 4 11:45:29 Low back pain 856121508 Active 2023 MONIK HUYNH [address] [place] [address], [address], [facility] 4 11:52:36 Pain of left knee joint 6384160688 41514 Active 2024 Joselo Mckeon DO [address] [place], [address], [facility] 5 12:00:04 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 634881859 Active 2024 MONIK HUYNH [address] [place] [address], [address], [facility] 5 10:52:38 Bilatera l foot drop 1500977764 2223054 Active 2024 MONIK HUYNH [address] [place] [address], [address], [facility] 5 10:52:38 Asthma 885313226 Active 2024 MONIK HUYNH [address] [place] [address], [address], [facility] 5 10:14:35 Influenz a caused by Influenz a A virus 060334940 Active 2024 MONIK HUYNH [address] [place] [address], [address], [facility] 5 10:17:23 Acute bronchit is 61558324 Active 2024 MONIK HUYNH [address] [place] [address], [address], [facility] 5 10:20:18 Dyspnea 725900679 Active 2024 MONIK HUYNH [address] [place] [address], [address], [facility] 5 10:57:51 Pulmonar y embolism 36514141 Active 2024 MONIK HUYNH [address] [place] [address], [address], [facility] 5 14:32:01 Acute pulmonar y embolism 310339934 Active 2024 MONIK HUYNH [address] [place], [address], [facility] 5 08:42:40 Cor pulmonal e 93420591 Active 2024 MONIK HUYNH [address] [place], [address], [facility] Internal [facility] 5 08:43:00 Blood coagulat ion disorder 70817999 Active 2024 MONIK HUYNH [address] [place], [address], [facility] 5 08:43:39 Migraine 96708948 Active 2024 MONIK HUYNH [address] [place], [address], [facility] 5 10:22:38 Pruritic rash 22647199 Active 2024 MONIK HUYNH [address] [place], [address], [facility] 5 10:37:36 Follicul itis 16089548 Active 2024 MONIK HUYNH [address] [place], [address], [facility] 5 10:39:39 Substanc e abuse 72694363 Completed 201702/08/2018 narcotic Joselo Mckeon, [address] [place], [address], [facility] 8 11:40:11 Fibromya lgia 029228652 [facility] 08:24:16 Bursitis 13772812 Active 2017 R hip, trochant ollie M70.61 [facility] 8 08:24:54 Herpes simplex 57780198 Active 2017 genital [facility] 8 08:25:25 Psoriati c arthriti s 568796249 Active 2017 [facility] 8 08:25:42 Depressi ve disorder 20415865 Active 2017 Joselo Mckeon, [address] [place] [address], [address], [facility] 8 11:47:42 Anxiety disorder 485619954 Active 2017 Joselo Mckeon DO [address] [place] [address], [address], [facility] 8 11:47:54 Problem Notes None recorded. Procedures Surgical History Date Name Laterality Status Provider Name and Address Organization Details Recorded Time 11/13/2018 Date of Last Pap Smear completed Darlene Costa [facility] 01/17/2019 14:01:49 Imaging Results Imaging Date Name Status LastModified by Organiz ation Details LastModified Time 06/24/2024 XR, knee, 3 view completed [email or web address] Information not available 06/25/2024 14:01:23 07/30/2024 XR, chest, 2 view completed [email or web address] [address], [place], [address], 07/30/2024 13:47:42 Procedure Notes None recorded. Medical Equipment None Reported. Allergies Allergen ID Allergen Name Allergen Category Reaction Reaction Severity Criticality Documentation Date Start Date Code Code System Note Provider Name and Address Organization Details Recorded Time 1450 Product containin g penicilli n (product) medicatio n Not available Not available Not available 11/02/2017 77563 8001 SNOMED [facility] 8 08:22:53 7229 Sudafed medicatio n Not available Not available Not available 02/09/202342113 2 RxNorm MONIK HUYNH [address] [place] [address], [address], [facility] 3 10:47:51 Medications Name Sig Start Date [...] Available Not Available Not Available Flucelvax Quad 8830-1323 (PF) 60 mcg (15 mcg x 4)/0.5 [...] Details Last Updated DateTime 5 167.64 cm 30.9 kg/m2 27737.3 g 73 /min 98 % 98 % 148 mm[Hg] 92 mm[Hg] Nette Baig [facility] 5 10:35:50 Date Recorded Body height Body mass index (BMI) Body weight Heart rate Oxygen saturation Oxygen saturation in Arterial blood by Pulse oximetry Systolic blood pressure Diastolic blood pressure Provider Name and Address Organization Details Last Updated DateTime 5 167.64 cm 30.1 kg/m2 44115.6 2 g 105 /min 98 % 98 % 136 mm[Hg] 78 mm[Hg] Nette Baig [facility] 5 10:48:50 Date Recorded Body height Body mass index (BMI) Body weight Heart rate Oxygen saturation Oxygen saturation in Arterial blood by Pulse oximetry Systolic blood pressure Diastolic blood pressure Provider Name and Address Organization Details Last Updated DateTime 5 167.64 cm 29.5 kg/m2 09297.6 1 g 100 /min 97 % 97 % 118 mm[Hg] 76 mm[Hg] Albin Black [facility] 5 10:06:24 Social History Question Answer Notes LastModified by Organizat ion Details LastModified Time Tobacco Smoking Status Current Every Day Smoker Not Available [facility] 04/13/2020 03:36:23 What Was The Date Of [...] 50 mcg/0.25mL dose 1 completed Jael topete [facility] Internal [facility] 12/15/2020 08:36:36 COVID-19, mRNA, LNP-S, PF, 100 mcg/0.5mL dose or 50 mcg/0.25mL dose 1 completed Jael topete [facility] 12/15/2020 08:36:42 COVID-19, mRNA, LNP-S, PF, 100 mcg/0.5mL dose or 50 mcg/0.25mL dose 2 completed Darlene topete [facility] 10/28/2021 11:57:24 influenza, unspecified formulation 6 completed Ramona topete [facility] 07/26/2022 08:29:44 influenza, unspecified formulation 0 completed Ramona topete [facility] 07/26/2022 08:29:51 Tdap 0 completed Joselo Mckeon, DO [address] [facility], [place], [address], [facility] 09/14/2020 11:58:44 Past Encounters Encounter ID Performer Location Encounter Start Date Encounter Closed Date Diagnosis/Indication Diagnosis SNOMED-CT Code Diagnosis ICD10 Code Diagnosis Note [id number] Joselo Mckeon [facility] [address] [facility],[place] [address] 11/02/2017 11:16:50 11/02/2017 14:11:34 Psoriatic arthritis 057750617 L40.50 will be following up with dr santos Anxiety disorder F41.9 still stressed but is hanging tough states having difficulty fallin asleep Stress fra cture of metatarsal bone 494814312 M84.374A will need ongoing podiatry PT to assist with gait [id number] Joselo Mckeon [facility] [address] [facility], [place] [address] 12/28/2017 10:56:52 12/28/2017 12:31:23 Anxiety disorder 994754392 F41.9 still stressed but is hanging tough states having difficulty fallin asleep Depressive disorder 3548 9007 F33.9 Fibromyalgia 804757241 M 79.7 consider trial of savella sfter lnog discussion baout ongoing aches and point tenderness areas [id number] Joselo Mckeon [facility] [address] [facility], [place] [address] 02/08/2018 10:54:18 02/08/2018 12:23:49 Depressive disorder 47894086 F33.9 at baseline no changes at this time Fibromyalgia 117998982 M 79.7 unable to take savella due to interactio ns with drugs has a nerve conduct test next month Anxiety disorder F41.9 still stressed but is hanging tough states having difficulty falling asleep and is otherwise doing ok Psoriatic arthritis 1563 14917 L40.50 will be following up with dr santos Tobacco de pendence syndrome 82903450 F17.200 discussion re quitting and pt is actively trying to cut down September CRISS Claire [facility] [address] [facility],[place] [address] 04/08/2018 14:08:38 04/08/2018 16:47:57 Tobacco dependence syndrome 38011920 F17.200 smokes about 1/2 ppd she wants to quit, struggles with motivation has tried chantix not helfpul - too many adrs has done the patch with temporary relief Anxiety disorder 06 F41.9 usually sees mb has been stable Depressive disorder 3548 9007 F32.9 usually followed by mb has been stable Atypical pneumonia 41368 6009 J18.9 didn't hear any abnormalit ies on lung exam, but with low grade fever, sob, and smoking history would like to cover for pneumonia get cxr if sx worsen [id number] Joselo Mckeon [facility] [address] [facility] [address] [place] [address] 05/24/2018 10:40:36 05/24/2018 11:28:20 Tobacco dependence syndrome 31907992 F17.200 discussion re quitting and pt is actively trying to cut down Anxiety disorder F41.9 still stressed but is hanging tough states having difficulty falling asleep and is otherwise doing ok Depressive disorder 3548 9007 F33.9 at baseline no changes at this time [id number] Joselo Mckeon [facility] [address] [facility] [address] [place] [address] 07/26/2018 10:43:42 07/26/2018 11:28:24 Anxiety disorder F41.9 still stressed but is hanging tough states having difficulty falling asleep and is otherwise doing ok Depressive disorder 3548 9007 F33.9 at baseline no changes at this time Fibromyalgia 023754635 M 79.7 unable to take savella due to interactio ns with drugs has a nerve conduct test next month Carpal vin ryan syndrome 54773309 G56.01 pt will follow and if she starts losing her muscle tone she will have to get it fixed [id number] Joselo Mckeon [facility] [address] [facility] [address] [place] [address] 09/13/2018 11:13:30 09/13/2018 12:32:34 Tobacco dependence syndrome 37669552 F17.200 discussion re quitting and pt is actively trying to cut down Psoriatic arthritis 1563 11770 L40.50 will be trying diclofenac gel if allowed by insur [id number] Joselo Mckeon [facility] [address] [facility] [address] 01/17/2019 13:52:32 01/17/2019 14:53:22 Tobacco dependence syndrome 96798645 F17.200 discussion re quitting and pt is actively trying to cut down Anxiety disorder F41.9 still stressed but is hanging tough states having difficulty falling asleep and is otherwise doing ok will refill valium Depressive disorder 3548 9007 F33.9 at baseline no changes at this time [id number] Joselo Mckeon [facility] Internal Medicine [address] [facility],[place] [address] 04/08/2019 13:24:56 04/08/2019 14:02:56 Depressive disorder 88887480 F33.9 at baseline no changes at this time Anxiety disorder F41.9 still stressed but is hanging tough states having difficulty falling asleep and is otherwise doing ok will refill valium Lumbosacra l radiculitis 77374341 M54.17 recent epidural unhelpful and may have exacerbate d pain as now she is ambulating diff with resultant hip and knee pain Effusion o f joint of right knee 5464929002 84743 M25.461 noted effusion 2' to above will need xrays to start as well as med for pain keterolac Pain of le ft hip joint 1950494009 58401 M25.552 [id number] Joselo Mckeon [facility] Internal Medicine [address] [facility] [address],[place] [address] 08/01/2019 13:26:11 08/01/2019 14:11:37 Depressive disorder 55864037 F33.9 at baseline no changes at this time Anxiety disorder F41.9 states that her anxiety is still the same on duloxetine , has been on it for two years still taking valium when having episodes which she states is the only thing that helps Bursitis 40541408 M71.9 stable Nausea 307566285 R11.0 Nonulcer dyspepsia 40106 07 K30 patient states she has been nauseous for the past three weeks pt states it starts after drinking coffee Abdominal pain 17837367 R10.9 [id number] Joselo Mckeon, [facility] Internal Medicine [address] [facility] [address],[place] [address] 09/19/2019 10:59:14 09/19/2019 11:41:53 Anxiety disorder 971897781 F41.9 states that her anxiety is still the same on duloxetine , has been on it for two years still taking valium when having episodes which she states is the only thing that helps Depressive disorder 3548 9007 F33.9 at baseline no changes at this time Tobacco de pendence syndrome 16097532 F17.200 discussion re quitting and pt is actively trying to cut down Gastroesop hageal reflux disease 648302676 K21.9 now resolved since off sugar substitute s [id number] Joselo Mckeon [facility] Internal Medicine [address] [facility] [address],[place] [address] 03/12/2020 11:28:30 03/12/2020 12:11:52 Depressive disorder 51941674 F33.9 at baseline no changes at this time Fibromyalgia 986199211 M 79.7 unable to take savella due to interactio ns with drugs has a nerve conduct test next month so is now on the venlafaxin e Irritable bowel syndrome characterized by constipation 269406025 K58.1 Adult heal examination 520464998 Z00.00 [id number] Joselo Mckeon, [facility] Internal Medicine [address] [facility],[place] [address] 09/14/2020 11:52:29 09/14/2020 14:34:14 Active or passive immunization 900357337 Z23 had covid she will require the vaccine in the next couple months Adult heal th examination 641821949 Z00.00 reviewed blood work it is excellent except for the vit d she will take supp Nausea 868412964 R11.0 will take for her ability to eat at this time but we will also have her stop the lyrica for a week if negative wewill need to look for a poss gastritis with an UGI xray Anxiety disorder F41.9 states that her anxiety is still the same on duloxetine , has been on it for two years still taking valium when having episodes which she states is the only thing that helps [id number] Joselo Mckeon, [facility] Internal Medicine [address] [facility] [address],[place] [address] 12/24/2020 12:14:14 12/24/2020 12:53:25 Psoriatic arthritis 123472139 L40.50 will be trying diclofenac gel if allowed by insur Tobacco de pendence syndrome 91114808 F17.200 discussion re quitting and pt is actively trying to cut down Anxiety disorder F41.9 states that her anxiety is still the same on duloxetine , has been on it for two years still taking valium when having episodes which she states is the only thing that helps Depressive disorder 3548 9007 F33.9 at baseline no changes at this time Fibromyalgia 584630267 M 79.7 unable to take savella due to interactio ns with drugs has a nerve conduct test next month so is now on the venlafaxin e Chronic bronchitis 72750 004 J42 seems to be better now long discuss re cigg smoke and ivon the use of pred taper [id number] Joselo Mckeon, [facility] Internal Medicine [address] [facility],[place] [address] 05/11/2021 08:09:44 05/13/2021 14:00:02 Psoriatic arthritis 364801949 L40.50 will be trying diclofenac gel if allowed by insur Anxiety disorder F41.9 states that her anxiety is still the same on duloxetine , has been on it for two years still taking valium when having episodes which she states is the only thing that helps Effusion o f joint of right knee 0406023803 67082 M25.461 noted effusion 2' to above will need xrays to start as well as med for pain keterolac Lumbosacra l radiculitis 25312488 M54.17 recent epidural unhelpful and may have exacerbate d pain as now she is ambulating diff with resultant hip and knee pain [id number] Joselo Mckeon DO [facility] Internal Medicine [address] [facility] [address],[place] [address] 10/28/2021 11:57:03 11/01/2021 11:37:39 Tobacco dependence syndrome 91353016 F17.200 discussion re quitting and pt is actively trying to cut down Anxiety disorder 06 F41.9 states that her anxiety is still the same on duloxetine , has been on it for two years still taking valium when having episodes which she states is the only thing that helps Depressive disorder 3548 9007 F33.9 at baseline no changes at this time Chronic bronchitis 38648 004 J42 seems to be better now long discuss re cigg smoke and ivon the use of pred taper Psoriatic arthritis 1563 66937 L40.50 will be trying diclofenac gel if allowed by insur 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 62154431 I83.10 this is not a phlebitis picture this is a local irritation of the skin and not vein inflammwe will treat with clobetasol Inflammati on of sacroiliac joint 48576430 M46.1 [id number] Joselo cMkeon, [facility] Internal Medicine [address] [facility], [place] [address] 02/03/2022 10:26:55 02/03/2022 11:20:50 Depressive disorder 94898900 F33.9 at baseline no changes at this time Anxiety disorder F41.9 states that her anxiety is still the same on duloxetine , has been on it for two years still taking valium when having episodes which she states is the only thing that helps Cough 40787134 R05.1 now reoslved Lumbosacra l radiculitis 41491860 M54.17 recent epidural unhelpful and may have exacerbate d pain as now she is ambulating diff with resultant hip and knee paini am wondering if she has had a leg length discrepanc y 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 52638370 I83.10 this is not a phlebitis picture this is a local irritation of the skin and not vein inflammwe will treat with clobetasol [id number] Joselo Mckeon [facility] Internal Medicine [address] [facility], [facility] [place] [address] 05/26/2022 11:27:32 05/26/2022 15:20:01 Active or passive immunization 691688937 Z23 had covid she will require the vaccine in the next couple months Adult heal th examination 838981108 Z00.01 reviewed blood work it is excellent except for the vit d she will take supp Postoperat ivan wound infection 46230326 T81.40XA Herniation of lumbar intervertebral disc with sciatica 7812438746 60045 M51.16 has had epidural inj which has been helpful seeing in aan Fibromyalgia 742268105 M 79.7 unable to take savella due to interactio ns with drugsshgino will ask the pharmacist to review the meds for poss interactio ns before she starts the samples given by rheum [id number] MONIK HUYNH [facility] Internal Medicine [address] [facility] [address],[place] [address] 05/30/2022 10:16:19 05/30/2022 11:23:53 Surgical incision wound of skin 4375370912 00 R23.8 stable Postoperat ivan wound infection 66921163 T81.40XA improvedco ntinue on abxcall if change in wound [id number] MONIK HUYNH [facility] Internal Medicine [address] [facility] [address],[place] [address] 07/26/2022 16:12:01 07/27/2022 09:08:37 Sense of smell altered 554262808 R43.1 possible infection Serous otitis media 8032 7007 H65.03 start on dual treatmentw ill do start on medrol Fibromyalgia 789696478 M 79.7 still waiting for a new doctor Acute sinusitis 95260816 J01.01 will set start on abx and steriod combo Fatigue 17020123 R53.83 will work up patient for possible reasons for the blood work Dysmenorrhea 660452802 N 94.6 [id number] Joselo Mckeon DO [facility] Internal Medicine [address] [facility] [address],[place] [address] 08/11/2022 10:56:17 08/11/2022 12:07:36 Inflammation of sacroiliac joint 85089176 M46.1 sacroiliit is Depressive disorder 3548 9007 F33.9 at baseline no changes at this time Chronic bronchitis 41261 004 J42 seems to be better now long discuss re cigg smoke and ivon the use of pred taper Multiple joint pain 3567 8005 M25.50 Fibromyalgia 363475826 M 79.7 unable to take savella due to interactio ns with drugsher rheumatolo gist is gone we will see if we can get her into dr miranda office [id number] Joselo Mckeon DO [facility] [address] [facility],[place] [address] 09/15/2022 12:10:49 09/15/2022 14:44:12 Herniation of lumbar intervertebral disc with sciatica 6036623621 31889 M51.16 has had epidural inj which has been helpful seeing in ana Inflammati on of sacroiliac joint 62055584 M46.1 sacroiliit is on going did get better with pre d Chronic constipation 236 312363 K59.09 [id number] MONIK HUYNH [facility] [address] [facility],[place] [address] 12/26/2022 11:15:05 12/26/2022 16:39:54 Anxiety disorder 085671093 F41.3 discussed moodworkin g on finding correct medication to control her pain level will call for diazepam to switch script Depressive disorder 9238 9007 F33.9 discussed mood Herniation of lumbar intervertebral disc with sciatica 4725132840 20425 M51.16 seeing specialist Fibromyalgia 480907970 M 79.7 new referral sent to CT since she has not had any benefit with her current rheumtizan idine for more beneft for the patient's symptoms also can try amitriptyl ine, clomiprami ne, milnacipra n Inflammati on of sacroiliac joint 32595894 M46.1 sending to alt rheum Acute otitis media 47812 03 H65.01 start z jamie and medrol Varicose v eins of lower extremity 56994777 I83.93 will set up with another surgeon Renewal of prescription 762249148 Z76.0 send in another script can cont use [id number] MONIK HUYNH Internal Medicine [address] [facility],[place] [address] 02/09/2023 10:27:15 02/09/2023 14:46:01 Anxiety disorder 456704634 F41.3 stable Middle ear effusion 1004 543043 H74.8X1 will start on singulair Irritable bowel syndrome characterized by constipation 644036905 K58.1 stable Varicose v eins of lower extremity 71403454 I83.93 stable [id number] MONIK HUYNH [facility] Internal Medicine [address] [facility], [place] [address] 03/13/2023 08:56:52 03/13/2023 09:48:18 Anxiety disorder 350193213 F41.3 stable Depressive disorder 3548 9007 F33.9 discussed mood Fibromyalgia 038886339 M 79.7 will add 100 mg Allergic rhinitis 322868 04 J30.2 switch to zafirlukas t 20 mg BID and start on budesonide as well since OTC Fall W19.XXXD will set up with XR lumbar spine Candidiasis of skin 4988 3006 B37.2 will set up with powder [id number] MONIK HUYNH [facility] Internal Medicine [address] [facility],[place] [address] 04/17/2023 09:22:01 04/17/2023 12:12:25 Acute otitis media 0877301 H65.01 given an ear drop and have her do normal saline nasal spray Closed fra cture of fifth metatarsal bone 04736648 S92.352A agueda tapedkeep nail on top of the nail bed and let fall off by itself Candidiasis of skin 4988 3006 B37.2 change to combo cream [id number] MONIK HUYNH [facility] Internal Medicine [address] [facility],[place] [address] 05/22/2023 10:22:41 05/22/2023 11:07:40 Pain of ear 158051820 H92.03 stablewill monitor Candidiasis of skin 4988 3006 B37.2 stable [id number] Joselo Mckeon DO [facility] Internal Medicine [address] [facility], [place] [address] 08/01/2023 07:48:40 08/01/2023 10:20:04 Cervical myelopathy 845646669 G95.9 [id number] MONIK HUYNH [facility] Internal Medicine [address] [facility],[place] [address] 08/14/2023 13:27:54 08/14/2023 14:31:04 Liver enzymes level above reference range 473706341 R74.01 will recheck levels, with additional lab work as well and imaging of the biliary system Constipation 80291389 K5 9.09 will also check parathyroi d levels Dysuria 50021767 R30.0 will set up with urinalysis [id number] MONIK HUYNH [facility] Internal Medicine [address] [facility] [place] [address] 09/18/2023 10:27:28 09/18/2023 11:10:19 Anxiety disorder 237818459 F41.3 stable Umbilical hernia 2351281 07 K42.9 will monitor Spasm of back muscles 20 3519259 M62.830 will trial alt msk relaxer Acne 69513672 L70.8 suggested acne wash and contined as needed topical powder Candidiasis of skin 4988 3006 B37.2 stable Pain of ear 377698111 H9 2.03 stablewill monitor [id number] MONIK HUYNH [facility] Internal Medicine [address] [facility],[place] [address] 11/27/2023 10:53:05 11/27/2023 12:10:46 Depression screening 709598440 Z13.31 0 Acute otitis media 18735 03 H65.01 given an ear drop and have her do normal saline nasal spray Chronic sinusitis 158439 00 J32.8 agreed to f/u with rope cleaner, could be an allergic reaction given the consistenc y of her issues Cervical radiculopathy 62554162 M54.12 still has to finish her PT before MRI will be approved [id number] MONIK HUYNH [facility] Internal Medicine [address] [facility],[place] [address] 12/25/2023 10:27:07 12/25/2023 15:01:12 Depression screening 395052548 Z13.31 0 Acute otitis media 80030 03 H65.01 add anti-funga l toward Allergic rhinitis 231268 04 J30.2 switch to zafirlukas t 20 mg BID and start on budesonide as well since OTC Cervical radiculopathy 55711386 M54.12 still has to finish her PT before MRI will be approved Herniation of lumbar intervertebral disc with sciatica 2179361174 01955 M51.16 switch the diclofenac BID PRN Spasm of back muscles 20 9976879 M62.830 adjust dose up to 1000 mg QID PRN Chronic sinusitis 847689 00 J32.8 will set up with XR's Pain in fi nger of right hand 3513500129 41386 M79.644 will set up with Dysuria 12751309 R30.0 will set up with urinalysis [id number] MONIK HUYNH [facility] Internal Medicine [address] [facility],[place] [facility] [place] [place] [address] 01/15/2024 09:46:45 01/15/2024 12:12:40 Closed fracture of distal phalanx of ring finger of right hand 6489567083 7515065 S62.634G f/u XR [id number] MONIK HUYNH [facility] Internal Medicine [address] [facility],[place] [address] 01/29/2024 09:30:08 01/29/2024 10:11:21 Acute sinusitis 78759129 J01.01 will set start on abx and steriod combostero id should Closed fra cture of distal phalanx of ring finger of right hand 0750988136 3658731 S62.634G f/u XR to check for resolution of XR [id number] MONIK HUYNH [facility] Internal Medicine [address] [facility],[place] [address] 04/01/2024 10:28:36 04/01/2024 14:35:34 Degeneration of lumbar intervertebral disc 10540911 M51.369 will set up with second opinion Onychomycosis 516756351 B35.1 start on [id number] MONIK HUYNH [facility] Internal Medicine [address] [facility],[place] [address] 04/29/2024 14:10:31 04/29/2024 14:53:04 Degeneration of lumbar intervertebral disc 35038503 M51.369 had trigger point injections working with the doctor for a new facet injection Spasm of back muscles 20 8857915 M62.830 adjust dose up to 1000 mg QID PRN [id number] MONIK HUYNH [facility] [address] [facility],[place] [address] 06/10/2024 11:10:52 06/10/2024 12:03:07 Gastroesophageal reflux disease 485403466 K21.00 related to a side effect to a medwill start on combo therapy Low back pain 535660668 M54.51 will trial amitriptyl ine and the lidocaine Herniation of lumbar intervertebral disc with sciatica 3716015262 77061 M51.16 switch the diclofenac BID PRN [id number] MONIK HUYNH [facility] Internal Medicine [address] [facility] [place] [address] 07/08/2024 10:22:36 07/08/2024 11:13:10 Gastroesophageal reflux disease 819833288 K21.00 doing much better on the pantoprazo le Low back pain 291446523 M54.51 will trial amitriptyl ine and the lidocaine, hasn't started it yet, wanted to stagger the new meds Herniation of lumbar intervertebral disc with sciatica 4812043476 89280 M51.16 has a second opinion with Dr. Lewis Paralysis due to lesion of spinal cord 372670642 G95.9 stable, no major changes Bilateral foot drop 1563 726099 3903242 M21.371 has second opinion with Dr. Lewis Acute sinusitis 80929186 J01.01 will set start on abx and steriod combostero id should Dysuria 97922953 R30.0 will set up with urinalysis Pain of le ft knee joint 5352920632 09017 M25.562 knee brace and ice prnwill monitor [id number] MONIK HUYNH [facility] Internal Medicine [address] [facility],[place] [place] [address] 07/30/2024 09:09:15 07/30/2024 10:40:32 Asthma 638991583 J45.21 will set up with a nebulizer Influenza caused by Influenza A virus 280125536 J09.X2 will set up wtih pred and cough suppressan t Fibromyalgia 599175172 M 79.7 refill Acute bronchitis 6380681 2 J20.4 repeat CXR given worsened symptoms [id number] MONIK HUYNH [facility] Internal Medicine [address] [facility] [address],[place] [address] 08/05/2024 10:41:34 08/05/2024 12:08:19 Influenza caused by Influenza A virus 792757223 J09.X2 will set up wtih pred and cough suppressan t Dyspnea 772143485 R06.[address] up [address] chest since now has two negative XRs and her symptoms are worsening Lumbosacra l radiculitis 94296837 M54.17 will take over script from her assistant health educator since she hasn't responded to her refill requests Tobacco de pendence syndrome 47837061 F17.290 will start on nicotine 21 mg [id number] MONIK HUYNH [facility] Internal Medicine [address] [facility] [address],[place] [address] 08/13/2024 11:39:37 08/13/2024 14:46:18 Pulmonary embolism 20444155 I26.99 will fu next week Degenerati on of lumbar intervertebral disc 03699641 M51.369 okay right now, tramadol helps for a bit to take the edge off and she uses APAP otherwises o stable currently [id number] MONIK HUYNH [facility] Internal Medicine [address] [facility] [address] [address] 08/19/2024 09:58:16 08/19/2024 10:44:16 Acute pulmonary embolism 974580548 I26.99 send in US echo Cor pulmonale 79736964 I 27.23 recheck US echo Dyspnea 087243675 R06.03 recheck CTA Blood coag ulation disorder 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 D68.59 start with lab work Migraine 83581932 G43.90 9 refill Folliculitis 01828195 L7 3.9 will set up with cream Pruritic rash 99979393 L 28.2 will set up wtih PRN prednisone Health Concerns Section Related Observation LastModified by Organization Detai ls LastModified Time None Recorded Concern Status LastModified by Organization Details LastModified Time None Recorded Advance Directives Directive None Recorded Payers Encounter Date Sequence Insurance Name Policy Number Policy Powell Covered Member ID Powell Member ID Guarantor Name 07/08/2024 1 [place] [id number] 2 [employer] [id number] Mariaa L Stone 07/30/2024 1 [place] [id number] 2 [employer] [id number] Mariaa L Stone 08/05/2024 1 [place] [id number] 2 [employer] P [employer] [id number] Mariaa L Stone 08/13/2024 1 [place] [id number] 2 [employer] [id number] 04 Mariaa L Stone 08/19/2024 1 [place] [id number] 2 [employer] [id number] Mariaa L Stone Notes Date Note Type Note Provider Name and Address Organization Details Recorded Time 5 text/html f/u 1 mos the patient has developed worsening lumbar spine pain from previousthe patient has failed the last three injections she has had done, does have another scheduledthe patient is currently on the leflunomide 10 mg, will take a few months to notice it working will continue to work with her specialist the patient's arthritis specialist also referred her to a second opinion with Dr. Lewis for her worsening low back pain the patient will give her a prednisone taper, PRN for severe flare-ups having some ear pain, has an effusion again, will restart the budesonide and will restart a pred taper recent MRI showed continued degenerative changes the patient will monitor her symptoms the patient has a wart on her pointer finger in right hand, will use otc freezing spray MONIK HUYNH [address] [place] [address], [place], [address], [facility] 07/08/2024 11:07:49 5 text/html c/o sick symptoms The patient is participating in this appointment via telemedicine communication with a phone call/video calling service (Doxy)The patient consents to use of these platforms in place of an in-person appointment due to either sick symptoms the patient is presenting with or current office closure due to COVID exposure in order to keep our office staff and patients safe The patient presents to the office today with concerns of sick symptoms including cough, wheezing, sob diagnosed with flu [facility] treatment givenXR was negative at the time of presenations symptoms have worsened sigO2 sat dropping into the low 90% hx of smoking, current everyday smoker The symptoms started originally sundayThe patient reports exposure to , co workersThe patient symptoms mainly involves the cough and sob Pertinent comorbidities include smoking hx The patient symptoms are alleviated by n/aThe patient symptoms are exacerbated by talking, activity The patient has tested for COVID-19 and the results was negative at ER with testingneg for RSV as well MONIK HUYNH [address] [place], [address], [facility] 07/30/2024 10:25:23 5 text/html 1 mos f/u the patient [...] agrees to this planrecommended starting on mucinex 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 for night time symptoms needs to fill gabapentin for her specialist who hasn't responded to refill requests MONIK HUYNH [address] [facility], [place], [address], [facility] Medicine 08/05/2024 11:16:23 5 text/html c/o sob after PE The patient is participating in this appointment via telemedicine communication with a phone call/video calling service ([employer])The patient consents to use of these platforms in place of an in-person appointment due to either sick symptoms the patient is presenting with or current office closure due to COVID exposure in order to keep our office staff and patients safe patient was in hospital for PE due to fluadmitted for 4 dayshaving some lower O2 numbers at home which is expected, dips more at night or when she sleeps which is also expected given lessen O2 demand, pt denies symptoms with the drop when she sleeps, doesn't wake up gasping or sig sob, feels fineno headaches or dizziness was on o2 at night at the hospital but the d.c it prior to d.c, didn't recommend script for at home o2will cont to monitor, told to update me sunday of how she is feelinghas fu for d/c next week in person has pulm/hematology fu to test for possible clotting d/o scheduled as well meds working fineno alarm symptoms at this time MONIK HUYNH [address] [place] [address], [id number], [facility] 08/13/2024 14:42:07 5 text/html hospital d/c: patient has flu A about three to four weeks ago, treated via ER originally with tamiflu and instructed to f/u outpatient with PCP, given a course of steroids and another CXR given incomplete resolution of symptoms and worsening sobCXR remained clear, f/u in office one week later as per discussion, at the time a CT was ordered to find other causes for the worsening sobprior to the CT scheduling patient became acutely worse, with sig sob, left chest wall pain, and LE swellingat the time she was admitted to the hospital after finding a PE with acute cor pulmonale on CTAno sig damage to the heart per US echo she was admitted to the ICU for observation and treatment while influenza can provoke a PE amelia given pt med hx, they did recommend hematology work up or eval to r/o hypercoagable d/o which we can start outpatient through this office, while we can refer to specialist given current limitations with specialty offices, soonest appt would be months out already re ordered a fu CTA for recheck of the PE 1 mos post discharge would also benefit from a repeat US echo in a few months as well 08/13/24: patient did have SDV last week due to lowered O2 at night when sleeping, which is noted in the hospital report, she was given 1 L of O2 via nasal cannula, she was not discharged with supplemental o2 or recommendations for such out patient patient feels okay, sob is improving, denied any worsening symptoms when her o2 dips while asleephad her cont to monitor, if it persists or symptoms worsen had discussed trying to get her set up with portable oxygen tank, however, given difficulties with current supplier, it takes a few weeks to have that set up amelia with wait time for insurance approval today:given order for her blood workcont eliquiscan use PRN pred for the inflammation no NSAIDs given lab workstart on cream for rash under breasts MONIK HUYNH [address] [facility], [place], [id number], [facility] 08/19/2024 10:43:01 OBGyn Episode No OBEpisode recorded.
--- OUTSIDE RECORDS SUMMARY | 2024-08-19 13:11 | XMS_ITS | Continuity of Care Document ---
Author Organization [facility] Address [address] [place] [address]- Care Team Providers Care Occupational Therapy Professor Name Role Phone Miguel PENNINGTON, Adan Oleary Primary Care Physician Encounter 07/30/24 - 08/06/24 [facility] [address], [address] [place], [place] [address] Attending Physician: Yumiko Callahan Admitting Physician: Yumiko Callahan Referring Physician: Yumiko Callahan Encounter Type: OutPatient One Time Allergies, Adverse Reactions, Alerts Substance Criticality Severity Reaction Reaction Severity Status penicillin Active penicillins Active Medications Boots See Instructions, # 1 each, Maintenance, [employer] short boot/ 01A-M Left/ Medium DX- 825.25, 07/23/12 10:50:37 AM EST Start Date: 07/23/12 Status: Ordered Quantity: 1.0 Unit: each Repeat number: 1 Buprenorphine = 5 mg, Daily, 0 Refills, Maintenance, 07/02/15 9:27:34 AM EST Start Date: 07/02/15 Status: Ordered Repeat number: 1 celecoxib 100 mg oral capsule 1 capsule = 100 mg, By Mouth, 2 times a day, # 60 capsule, 0 Refills, Maintenance, 07/20/22 4:43:00 PM EST, Capsule, Partial fill upon patient request if the prescription is for a schedule II opioid drug. Start Date: 07/20/22 Status: Ordered Quantity: 60.0 Unit: capsule Repeat number: 1 Compression Stockings See Instructions, # 2 each, Refills 2, Tot. Refills 2, Maintenance, surgical, calf length 20-30 mm Hg Dx: venous insufficiency, 02/20/20 3:04:00 PM EDT, Compound Start Date: 02/20/20 Status: Ordered Quantity: 2.0 Unit: each Repeat number: 3 Diazepam 0 Refills, Maintenance, 10/29/14 10:20:41 AM EDT Start Date: 10/29/14 Status: Ordered Repeat number: 1 diclofenac sodium By Mouth, 0 Refills, Maintenance, 10/29/14 10:20:33 AM EDT Start Date: 10/29/14 Status: Ordered Repeat number: 1 Flexeril Tablet By Mouth, 3 times a day, Maintenance, 10/29/14 10:20:49 AM EDT Start Date: 10/29/14 Status: Ordered Repeat number: 1 gabapentin 300 mg/24 hours oral tablet, extended release 3 tablet = 900 mg, By Mouth, Daily, # 90 tablet, 0 Refills, Maintenance, 05/15/23 9:37:00 AM EST, Tablet, Partial fill upon patient request if the prescription is for a schedule II opioid drug. Start Date: 05/15/23 Status: Ordered Quantity: 90.0 Unit: tablet Repeat number: 1 Lactulose 0 Refills, Maintenance, 10/29/14 10:20:15 AM EDT Start Date: 10/29/14 Status: Ordered Repeat number: 1 Mirena 52 mg intrauteral device 1 each = 52 mg, Once, 0 Refills, Maintenance, 10/29/14 10:21:58 AM EDT Start Date: 10/29/14 Status: Ordered Repeat number: 1 Multivitamin By Mouth, Daily, 0 Refills, Maintenance, 10/29/14 10:18:29 AM EDT Start Date: 10/29/14 Status: Ordered Repeat number: 1 Osteo Bi-Flex 0 Refills, Maintenance, 10/29/14 10:20:07 AM EDT Start Date: 10/29/14 Status: Ordered Repeat number: 1 ProAir HFA 90 mcg/inh inhalation aerosol with adapter 2, puffs, Inhalation, Every 6 hours, PRN, # 8.5 Gm, Refills 0, Tot. Refills 0, Maintenance, :05:00 PM EDT, Aerosol, Route to Pharmacy Electronically, [id number], [facility]/pharmacy #[id number], 169, cm, 02/20/20 14:46:00 EDT, Height Start Date: 12/04/20 Status: Ordered Quantity: 8.5 Unit: g Repeat number: 1 Indication: Acute bronchitis, unspecified Suboxone 8 mg-2 mg sublingual film 1 film, Sublingual, Daily, dissolve under the tongue, 0 Refills, Maintenance, 07/20/22 4:42:00 PM EST, Film, Partial fill upon patient request if the prescription is for a schedule II opioid drug. Start Date: 07/20/22 Status: Ordered Repeat number: 1 Valtrex Tablet By Mouth, Maintenance, 10/29/14 10:21:29 AM EDT Start Date: 10/29/14 Status: Ordered Repeat number: 1 Beatris-Zinc 1 tablet, By Mouth, Daily, 0 Refills, Maintenance, 10/29/14 10:18:47 AM EDT Start Date: 10/29/14 Status: Ordered Repeat number: 1 Wellbutrin XL 150 mg/24 hours oral tablet, extended release 1 tablet = 150 mg, By Mouth, Every 24 hours, # 90 tablet, 0 Refills, Maintenance, 06/09/15 10:24:08AM EST, ER Tablet, [facility]/pharmacy #2024 Start Date: 06/09/15 Stop Date: 09/07/15 Status: Ordered Quantity: 90.0 Unit: tablet Repeat number: 1 Wellbutrin XL 300 mg/24 hours oral tablet, extended release 1 tablet = 300 mg, By Mouth, Daily, # 90 tablet, 3 Refills, Maintenance, 07/02/15 9:34:09 AM EST, ERTablet, [facility]/pharmacy #2024 Start Date: 07/02/15 Stop Date: 06/26/16 Status: Ordered Quantity: 90.0 Unit: tablet Repeat number: 4 Problem List Condition Confirmation Course Effective Dates Status Health St atus Informant Obese class I Confirmed Active Results Radiology Reports * Exam Date Time Procedure Performing Provider Status 07/30/24 12:24 PM Chest 2 Views Frontal and Lat [place] , Shi; Auth (Verified) Notes: (Chest 2 Views Frontal and Lat) Reason For Exam: J20.4 Acute bronchitis due to parainfluenza virus RESULT: Chest 2 Views Frontal and Lat Chest 2 Views Frontal and Lat Reason: J20.4 Acute bronchitis due to parainfluenza virus COMPARISON: 12/27/2021 FINDINGS: LINES AND TUBES: None. LUNGS AND PLEURA: Clear lungs. Normal pulmonary vascularity. No pleural effusion. No pneumothorax. HEART, MEDIASTINUM AND AYAZ: Heart is normal in size. Normal mediastinal and hilar contour. BONES AND SOFT TISSUES: No acute abnormality. IMPRESSION: No acute abnormality. WSN: [id number] Ordering Physician: Yumiko Cortez Dictated By: Ivan Woods MD Dictated Date/Time: 07/30/24 12:59 p Reviewed By: Ivan Woods MD Signed By: Ivan Woods MD Signed Date/Time: 07/30/24 12:59 pm Transcribed By: BEKA Transcribed Date/Time: 07/30/24 12:59 pm Social History Social History Type Response Smoking Status Current every day geronimo entered on: 10/29/14 Sex Sex Representation Female (finding) Patient Care team information Care Team Personnel Name: Adan Rivera MD Position: [facility] Physician - Primary Care Member Role: PCP [address]: [address] [place] [address] Telecom: Care Team Related Persons Name: JEREMY MCGOWAN Name: CAROL MCGOWAN Insurance Providers Guarantor name: JAMEL GORDON Health Plan Information #: 1 Payer: [employer] Member Number: [id number] Policy Number: NA Group Number: [id number] Health Plan Information #: 2 Payer: [employer] Member Number: [id number] Policy Number: NA Group Number: [id number]
--- OUTSIDE RECORDS SUMMARY | 2024-08-19 13:11 | XMS_ITS | Continuity of Care Document ---
Author Organization [place] - [facility], [facility] Address [address] [place] [address] [place] [address] Assessment Encounter Date Assessment Date Assessment LastModified by Organization Details LastModified Time 08/13/2024 08/13/2024 Patient agreed and verbally consents [...] None recorded. Surgeries None recorded. Imaging CT, angiogram , chest, w/wo contrast - 1 mos recheck 2024 03 025 [facility], [address] [place], [address], 08/19/2024 10:01:08 Medication Orders None recorded. Patient TargetsNo targets recorded. Patient InstructionsNo instructions recorded. Reason for Referral None Reported. Results Created Date Observation Date Name Description Value Unit Range Abnormal Flag Note LastModifiedBy Organization Detail LastModifiedTime 07/30/1907/30/2024 XR, chest , 2 view No observ ation record ed. [email or web address] [facility] [address], [place], [address], 07/30/2024 13:47:42 Result Notes None recorded. Problems Name Problem SNOMED Code Status Onset Date Resolution Date Notes Provider Name and Address Organization Details Recorded Time Tobacco dependen ce syndrome 60606867 Active 2017 Joselo Mckeon, DO [address] [place] [address], [address], [facility] 8 11:41:05 Carpal tunnel syndrome 08938664 Active 2018 Joselo Mckeon DO [address] [place] [address], [address], [facility] 9 11:21:46 Lumbosac ral radiculi tis 53603693 Active 2018 Joselo Mckeon, DO [address] [place] [address], [address], [facility] 9 13:39:48 Effusion of joint of right knee 5547095130 76564 Active 2018 Joselo Mckeon DO [address] [place] [address], [address], [facility] 9 13:40:09 COVID-19 368023684 Active 202006/10/20 [facility] 1 08:44:33 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 Active 2021 Joselo Mckeon DO [address] [place] [address], [address], [facility] 2 12:32:14 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 Active 2021 Joselo Mckeon, DO [address] [place] [address], [address], [facility] 2 12:33:25 Inflamma tion of sacroili ac joint 48259047 Active 2021 Joselo Mckeon DO [address] [place] [address], [address], [facility] 2 12:39:14 Cough 65591063 Active 2021 MONIK HUYNH [address] [place], [address], [facility] 2 15:19:41 Pneumoni tis 961374475 Active 2021 Joselo Mckeon, DO [address] [place] [address], [address], [facility] 2 23:01:02 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 Active 2021 Joselo Mckeon, DO [address] [place] [address], [address], [facility] 2 12:18:27 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 5800867970 64166 Active 2021 Joselo Mckeon, DO [address] [place] [address], [address], [facility] 2 12:21:16 Surgical incision wound of skin 1337988630 00 Active 2021 MONIK HUYNH [address] [place], [address], [facility] 2 10:38:41 Sense of smell altered 475872247 Active 2022 MONIK HUYNH [address] [place] [address], [address], [facility] 3 16:54:35 Serous otitis media 32955825 Active 2022 MONIK HUYNH [address] [place] [address], [address], [facility] 3 16:54:55 Fatigue 17650310 Active 2022 MONIK HUYNH [address] [place] [address], [address], [facility] 3 16:56:09 Dysmenor carlo 564412851 Active 2022 MONIK HUYNH [address] [place] [address], [address], [facility] 3 17:04:09 Multiple joint pain 95600217 Active 2022 Joselo Mckeon, DO [address] [place], [address], [facility] 3 11:53:02 Chronic constipa tion 348325849 Active 2022 Joselo Mckeon, DO [address] [place], [address], [facility] 3 12:36:43 Varicose veins of lower extremit y 95981543 Active 2022 MONIK HUYNH [address] [place], [address], [facility] 3 11:52:45 Middle ear effusion 9393174589 Active 2022 MONIK HUYNH [address] [place], [address], [facility] 3 10:45:26 Irritabl e bowel syndrome characte rized by constipa tion 203756132 Active 2022 MONIK HUYNH [address] [place], [address], [facility] 3 10:49:50 Varicose veins of lower extremit y 68708027 Active 2022 MONIK HUYNH [address] [place] [address], [address], [facility] 3 10:49:57 Allergic rhinitis 97087906 Active 2022 MONIK HUYNH [address] [place] [address], [address], [facility] 3 09:11:56 Candidia sis of skin 48490412 Active 2022 MONIK HUYNH [address] [place] [address], [address], [facility] 3 09:17:19 Pain of ear 058582892 Active 2022 MONIK HUNYH [address] [place], [address], [facility] 3 10:45:53 Sprain of right ankle 4941265846 7311441 Active 2023 MONIK HUYNH [address] [place], [address], [facility] 4 14:39:22 Cervical myelopat hy 761364199 Active 2023 Joselo Mckeon DO [address] [place], [address], [facility] 4 09:34:41 Liver enzymes level above referenc e range 684439300 Active 2023 MONIK HUYNH [address] [place], [address], [facility] 4 13:38:49 Constipa tion 15468401 Active 2023 MONIK HUYNH [address] [place], [address], [facility] 4 13:39:54 Dysuria 05086467 Active 2023 MONIK HUYNH [address] [place], [address], [facility] 4 13:48:18 Umbilica l hernia 011832096 Active 2023 MONIK HUYNH [address] [place], [address], [facility] 4 10:43:27 Spasm of back muscles 873682415 Active 2023 MONIK HUYNH [address] [place], [address], [facility] 4 10:49:31 Acne 85883590 Active 2023 MONIK HUYNH [address] [place], [address], [facility] 4 10:52:50 Acute otitis media 5225393 Active 2023 MONIK HUYNH [address] [place], [address], [facility] 4 11:21:42 Chronic sinusiti s 55539025 Active 2023 MONIK HUYNH [address] [place], [address], [facility] 4 11:23:40 Cervical radiculo ivanna 48659360 Active 2023 MONIK HUYNH [address] [place], [address], [facility] 4 11:25:59 Pain in finger of right hand 8205796471 67262 Active 2023 MONIK HUYNH [address] [place], [address], [facility] 4 10:55:31 Closed fracture of distal phalanx of ring finger of right hand 6404503708 4731621 Active 2023 MONIK HUYNH [address] [place], [address], [facility] 4 09:58:17 Acute sinusiti s 99233098 Active 2023 MONIK HUYNH [address] [place], [address], [facility] 4 09:42:52 Degenera tion of lumbar interver tebral disc 60086864 Active 2023 MONIK HUYNH [address] [place], [address], [facility] 4 11:12:53 Onychomy cosis 485098491 Active 2023 MONIK HUYNH [address] [place], [address], [facility] 4 11:19:35 Gastroes ophageal reflux disease 302466935 Active 2023 MONIK HUYNH [address] [place], [address], [facility] 4 11:45:29 Low back pain 511115747 Active 2023 MONIK HUYNH [address] [place], [address], [facility] 4 11:52:36 Pain of left knee joint 5726458169 56327 Active 2024 Joselo Mckeon DO [address] [place], [address], [facility] 5 12:00:04 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 997897823 Active 2024 MONIK HUYNH [address] [place], [address], [facility] 5 10:52:38 Bilatera l foot drop 1925390844 6984634 Active 2024 MONIK HUYNH [address] [place], [address], [facility] 5 10:52:38 Asthma 558579425 Active 2024 MONIK HUYNH [address] [place], [address], [facility] 5 10:14:35 Influenz a caused by Influenz a A virus 981894745 Active 2024 MONIK HUYNH [address] [place] [address], [address], [facility] 5 10:17:23 Acute bronchit is 71756784 Active 2024 MONIK HUYNH [address] [place] [address], [address], [facility] 5 10:20:18 Dyspnea 028292847 Active 2024 MONIK HUYNH [address] [place], [address], [facility] 5 10:57:51 Pulmonar y embolism 85462746 Active 2024 MONIK HUYNH [address] [place], [address], [facility] 5 14:32:01 Acute pulmonar y embolism 848134577 Active 2024 MONIK HUYNH [address] [place], [address], [facility] 5 08:42:40 Cor pulmonal e 85502244 Active 2024 MONIK HUYNH [address] [place], [address], [facility] 5 08:43:00 Blood coagulat ion disorder 82613233 Active 2024 MONIK HUYNH [address] [place], [place], , [facility] 5 08:43:39 Migraine 09664091 Active 2024 MONIK HUYNH [address] [place], [place], , [facility] 5 10:22:38 Pruritic rash 13453721 Active 2024 MONIK HUYNH [address] [place], [place], , [facility] 5 10:37:36 Follicul itis 00334356 Active 2024 MONIK HUYNH [address] [place], [address], [facility] 5 10:39:39 Substanc e abuse 35755549 Completed 201702/08/2018 narcotic Joselo Mckeon [address], [address], [facility] 8 11:40:11 Fibromya lgia 035130509 Active 2017 [facility] 08:24:16 Bursitis 42274418 Active 2017 R hip, trochant ollie M70.61 [facility] 8 08:24:54 Herpes simplex 44421065 Active 2017 genital [facility]achaitanya [facility] 8 08:25:25 Psoriati c arthriti s 380775554 Active 2017 Blankachaitanya [facility] 8 08:25:42 Depressi ve disorder 97237730 Active 2017 Joselo Mckeon [address], [address], [facility] 8 11:47:42 Anxiety disorder 399584563 Active 2017 Joselo Mckeon [address], [address], [facility] 8 11:47:54 Problem Notes None recorded. Procedures Surgical History Date Name Laterality Status Provider Name and Address Organization Details Recorded Time 11/13/2018 Date of Last Pap Smear completed Darlene Costa [facility] 01/17/2019 14:01:49 Imaging Results None recorded. Procedure Notes None recorded. Medical Equipment None Reported. Allergies Allergen ID Allergen Name Allergen Category Reaction Reaction Severity Criticality Documentation Date Start Date Code Code System Note Provider Name and Address Organization Details Recorded Time 1450 Product containin g penicilli n (product) medicatio n Not available Not available Not available 11/02/2017 94023 8001 SNOMED [facility] 8 08:22:53 7229 Sudafed medicatio n Not available Not available Not available 02/09/2023 2 RxNorm MONIK HUYNH [address] [place], [address], [facility] 3 10:47:51 Medications Name [...] Available Not Available Not Available Flucelvax Quad 4219-3719 (PF) 60 mcg (15 mcg x 4)/0.5 [...] Not Available Not Available Not Available Vitals None Recorded Social History Question Answer Notes LastModified by Organizat ion Details LastModified Time Tobacco Smoking Status Current Every Day Smoker Not Available [facility] 04/13/2020 03:36:23 What Was The Date [...] dose or 50 mcg/0.25mL dose 1 completed LILLI [facility] 12/15/2020 08:36:36 COVID-19, mRNA, LNP-S, PF, 100 mcg/0.5mL dose or 50 mcg/0.25mL dose 1 completed Jael Jean null, [facility] 12/15/2020 08:36:42 COVID-19, mRNA, LNP-S, PF, 100 mcg/0.5mL dose or 50 mcg/0.25mL dose 2 completed Darlene Costa [facility], [facility] 10/28/2021 11:57:24 influenza, unspecified formulation 6 completed Ramona Singh null, [facility] 07/26/2022 08:29:44 influenza, unspecified formulation 0 completed Ramona Singh [facility], [facility] 07/26/2022 08:29:51 Tdap 0 completed Joselo Mckeon, DO [address] [place] [address], [address], [facility] 09/14/2020 11:58:44 Past Encounters Encounter ID Performer Location Encounter Start Date Encounter Closed Date Diagnosis/Indication Diagnosis SNOMED-CT Code Diagnosis ICD10 Code Diagnosis Note [id number] MONIK HUYNH [facility] [address] [place] [address],[place] [address] 07/30/2024 09:09:15 07/30/2024 10:40:32 Asthma 833783873 J45.21 will set up with a nebulizer Influenza caused by Influenza A virus 568876627 J09.X2 will set up wtih pred and cough suppressan t Fibromyalgia 018298320 M 79.7 refill Acute bronchitis 1056065 2 J20.4 repeat CXR given worsened symptoms [id number] MONIK HUYNH [facility] [address] [facility],[place] [address] 08/05/2024 10:41:34 08/05/2024 12:08:19 Influenza caused by Influenza A virus 668527504 J09.X2 will set up wtih pred and cough suppressan t Dyspnea 694953675 R06.[address] chest since now has two negative XRs and her symptoms are worsening Lumbosacra l radiculitis 33228997 M54.17 will take over script from her manager utility since she hasn't responded to her refill requests Tobacco de pendence syndrome 57246429 F17.290 will start on nicotine 21 mg [id number] MONIK HUYNH [facility] [address],[place] [address] 08/13/2024 11:39:37 08/13/2024 14:46:18 Pulmonary embolism 73619314 I26.99 will fu next week Degenerati on of lumbar intervertebral disc 74416237 M51.369 okay right now, tramadol helps for a bit to take the edge off and she uses APAP otherwises o stable currently Health Concerns Section Related Observation LastModified by Organization Detai ls LastModified Time None Recorded Concern Status LastModified by Organization Details LastModified Time None Recorded Payers Encounter Date Sequence Insurance Name Policy Number Policy Powell Covered Member ID Powell Member ID Guarantor Name 08/13/2024 1 [place] (EPO) [id number] [employer] Howard [id number] Mariaa Howard Notes Date Note Type Note Provider Name a nd Address Organization Details Recorded Time 08/13/2024 text/html c/o sob after PE The patient is participating in this appointment via telemedicine communication with a phone call/video calling service (Alethy)The patient consents to use of these platforms [...] alarm symptoms at this time MONIK HUYNH [address] [facility], [place], [address], [facility] 08/13/2024 14:42:07 OBGyn Episode No OBEpisode recorded.
--- OUTSIDE RECORDS SUMMARY | 2024-08-19 13:11 | XMS_ITS | Continuity of Care Document ---
Author Organization [place] [facility], [facility] Address [address] [facility] [address] [place] [address] Assessment Encounter Date Assessment Date Assessment LastModified by Organization Details LastModified Time 07/30/2024 07/30/2024 Patient agreed and verbally consents to this audio and video Telehealth appt via a secure platform [email or web address] Not available 07/30/2024 10:20:11 Plan of Treatment Reminders Order Date Submit Date Provider Last Modified By Organization Details Last Modified Time Details Appointments Hospital F/U 2024 10:00A MONIK CHRISTENSEN Not available Not available Not available FOLLOW UP 15 2024 02:15P MONIK CHRISTENSEN Not available Not available Not available Lab None recorded. Referral None recorded. Procedures None recorded. Surgeries None recorded. Imaging XR, chest, 2 view 2024 025 [facility], [address] [place], [address], 07/30/2024 13:05:08 Medication Orders diazepam 5 mg tablet 2024 025 [place] Chidi [id number] [facility] [address] [place], [place], [id number], 07/30/2024 10:19:59 prednison e 10 mg tablet 2024 025 [facility] Chidi [address] ([facility] 827), [address] [place], [place], [id number], 08/13/2024 14:41:05 benzonata te 200 mg capsule 2024 025 [place] Murillo [address] ([facility] 827), [address] [place], [place], [id number], 08/19/2024 10:04:48 albuterol sulfate 2.5 mg/3 mL (0.083 %) solution for nebulizat ion 2024 025 [place] Murillo [address] ([facility] 827), [address] [place], [place], [id number], 07/30/2024 10:19:59 Patient TargetsNo targets recorded. Patient InstructionsNo instructions recorded. Reason for Referral None Reported. Results Created Date Observation Date Name Description Value Unit Range Abnormal Flag Note LastModifiedBy Organization Detail LastModifiedTime 07/30/19 25 07/30/2024 XR, chest , 2 view No observ ation record ed. [email or web address] [facility] [address] [place] [address] [address], [place], [address], 07/30/2024 13:47:42 Result Notes None recorded. Problems Name Problem SNOMED Code Status Onset Date Resolution Date Notes Provider Name and Address Organization Details Recorded Time Tobacco dependen ce syndrome 33558747 Active 2017 Joselo Mckeon DO [address] [place] [address], [address], [facility] 8 11:41:05 Carpal tunnel syndrome 85591724 Active 2018 Joselo Mckeon DO [address] [place] [address], [address], [facility] 9 11:21:46 Lumbosac ral radiculi tis 42485588 Active 2018 Joselo Mckeon DO [address] [place] [address], [address], [facility] 9 13:39:48 Effusion of joint of right knee 4085674782 81238 Active 2018 Joselo Mckeon DO [address] [place] [address], [address], [facility] 9 13:40:09 COVID-19 670244177 Active 202006/10/20 [facility] 1 08:44:33 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 Active 2021 Joselo Mckeon, DO [address] [place] [address], [address], [facility] 2 12:32:14 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 Active 2021 Joselo Mckeon, DO [address] [place] [address], [address], [facility] 2 12:33:25 Inflamma tion of sacroili ac joint 84312826 Active 2021 Joselo Mckeon, DO [address] [place] [address], [address], [facility] 2 12:39:14 Cough 37779679 Active 2021 MONIK HUYNH [address] [place] [address], [address], [facility] 2 15:19:41 Pneumoni tis 111848834 Active 2021 Joselo Mckeon, DO [address] [place] [address], [address], [facility] 2 23:01:02 Postoper ative wound infectio n 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 Active 2021 Joselo Mckeon, DO [address] [place] [address], [address], [facility] 2 12:18:27 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 2003052316 04403 Active 2021 Joselo Mckeon, DO [address] [place] [address], [address], [facility] 2 12:21:16 Surgical incision wound of skin 9767039907 00 Active 2021 MONIK HUYNH [address] [place], [address], [facility] 2 10:38:41 Sense of smell altered 668855660 Active 2022 MONIK HUYNH [address] [place], [address], [facility] 3 16:54:35 Serous otitis media 60142891 Active 2022 MONIK HUYNH [address] [place], [address], [facility] 3 16:54:55 Fatigue 77230390 Active 2022 MONIK HUYNH [address] [place], [address], [facility] 3 16:56:09 Dysmenor carlo 345707926 Active 2022 MONIK HUYNH [address] [place], [address], [facility] 3 17:04:09 Multiple joint pain 61083367 Active 2022 Joselo Mckeon, DO [address] [place] [address], [address], [facility] 3 11:53:02 Chronic constipa tion 307867275 Active 2022 Joselo Mckeon, DO [address] [place], [address], [facility] 3 12:36:43 Varicose veins of lower extremit y 57246481 Active 2022 MONIK HUYNH [address] [place], [address], [facility] 3 11:52:45 Middle ear effusion 9316391352 Active 2022 MONIK HUYNH [address] [place], [address], [facility] 3 10:45:26 Irritabl e bowel syndrome characte rized by constipa tion 442509873 Active 2022 MONIK HUYNH [address] [place], [address], [facility] 3 10:49:50 Varicose veins of lower extremit y 37034363 Active 2022 MONIK HUYNH [address] [place], [address], [facility] 3 10:49:57 Allergic rhinitis 47865540 Active 2022 MONIK HUYNH [address] [place], [address], [facility] 3 09:11:56 Candidia sis of skin 74008569 Active 2022 MONIK HUYNH [address] [place], [address], [facility] 3 09:17:19 Pain of ear 928956365 Active 2022 MONIK HUYNH [address] [place], [address], [facility] 3 10:45:53 Sprain of right ankle 3396958852 8673704 Active 2023 MONIK HUYNH [address] [place], [address], [facility] 4 14:39:22 Cervical myelopat hy 007870450 Active 2023 Joselo Mckeon DO [address] [place], [address], [facility] 4 09:34:41 Liver enzymes level above referenc e range 273924852 Active 2023 MONIK HUYNH [address] [place], [address], [facility] 4 13:38:49 Constipa tion 30519537 Active 2023 MONIK HUYNH [address] [place], [address], [facility] 4 13:39:54 Dysuria 56830076 Active 2023 MONIK HUYNH [address] [place], [address], [facility] 4 13:48:18 Umbilica l hernia 406699602 Active 2023 MONIK HUYNH [address] [place], [address], [facility] 4 10:43:27 Spasm of back muscles 372302202 Active 2023 MONIK HUYNH [address] [place], [address], [facility] 4 10:49:31 Acne 72986520 Active 2023 MONIK HUYNH [address] [place] [address], [address], [facility] 4 10:52:50 Acute otitis media 5112779 Active 2023 MONIK HUYNH [address] [place] [address], [address], [facility] 4 11:21:42 Chronic sinusiti s 32083431 Active 2023 MONIK HUYNH [address] [place], [address], [facility] 4 11:23:40 Cervical radiculo ivanna 25126491 Active 2023 MONIK HUYNH [address] [place], [address], [facility] 4 11:25:59 Pain in finger of right hand 9384959706 36156 Active 2023 MONIK HUYNH [address] [place], [address], [facility] 4 10:55:31 Closed fracture of distal phalanx of ring finger of right hand 6993205763 3749015 Active 2023 MONIK HUYNH [address] [place], [address], [facility] 4 09:58:17 Acute sinusiti s 06981117 Active 2023 MONIK HUYNH [address] [place], [address], [facility] 4 09:42:52 Degenera tion of lumbar interver tebral disc 27576223 Active 2023 MONIK HUYNH [address] [place], [address], [facility] 4 11:12:53 Onychomy cosis 213070025 Active 2023 MONIK HUYNH [address] [place], [address], [facility] 4 11:19:35 Gastroes ophageal reflux disease 199003817 Active 2023 MONIK HUYNH [address] [place], [address], [facility] 4 11:45:29 Low back pain 600659606 Active 2023 MONIK HUYNH [address] [place], [address], [facility] 4 11:52:36 Pain of left knee joint 0811490673 70099 Active 2024 Joselo Mckeon DO [address] [place], [address], [facility] 5 12:00:04 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 368003140 Active 2024 MONIK HUYNH [address] [place], [address], [facility] 5 10:52:38 Bilatera l foot drop 3321484100 7627132 Active 2024 MONIK HUYNH [address] [place], [address], [facility] 5 10:52:38 Asthma 722281647 Active 2024 MONIK HUYNH [address] [place], [address], [facility] 5 10:14:35 Influenz a caused by Influenz a A virus 727972821 Active 2024 MONIK HUYNH [address] [place], [address], [facility] 5 10:17:23 Acute bronchit is 78651301 Active 2024 MONIK HUYNH [address] [place], [address], [facility] 5 10:20:18 Dyspnea 966895774 Active 2024 MONIK HUYNH [address] [place], [address], [facility] 5 10:57:51 Pulmonar y embolism 28452192 Active 2024 MONIK HUYNH [address] [place], [address], [facility] 5 14:32:01 Acute pulmonar y embolism 104118084 Active 2024 MONIK HUYNH [address] [place], [address], [facility] 5 08:42:40 Cor pulmonal e 24610098 Active 2024 MONIK HUYNH [address] [place], [address], [facility] 5 08:43:00 Blood coagulat ion disorder 48351822 Active 2024 MONIK HUYNH [address] [place], [address], [facility] 5 08:43:39 Migraine 09220129 Active 2024 MONIK HUYNH [address] [place], [address], [facility] 5 10:22:38 Pruritic rash 87406812 Active 2024 MONIK HUYNH [address] [place], [address], [facility] 5 10:37:36 Follicul itis 53082617 Active 2024 MONIK HUYNH [address] [place], [address], [facility] 5 10:39:39 Substanc e abuse 46966480 Completed 201702/08/2018 narcotic Joselo Mckeon, [address] [facility], [place], [address], [facility] Internal [facility] 8 11:40:11 Fibromya lgia 421530407 Active 2017 Blanka topete [facility] 8 08:24:16 Bursitis 33895748 Active 2017 R hip, trochant ollie M70.61 Blanka topete [facility] 8 08:24:54 Herpes simplex 18640058 Active 2017 genital Blanka topete [facility] 8 08:25:25 Psoriati c arthriti s 040676779 Active 2017 Blanka topete [facility] 8 08:25:42 Depressi ve disorder 43409004 Active 2017 Joselo Mckeon, DO [address] [place], [address], [facility] 8 11:47:42 Anxiety disorder 833557136 Active 2017 Joselo Mckeon, DO [address] [place], [address], [facility] 8 11:47:54 Problem Notes None recorded. Procedures Surgical History Date Name Laterality Status Provider Name and Address Organization Details Recorded Time 11/13/2018 Date of Last Pap Smear completed Darlene Costa [facility] 01/17/2019 14:01:49 Imaging Results None recorded. Procedure Notes None recorded. Medical Equipment None Reported. Allergies Allergen ID Allergen Name Allergen Category Reaction Reaction Severity Criticality Documentation Date Start Date Code Code System Note Provider Name and Address Organization Details Recorded Time 1450 Product containin g penicilli n (product) medicatio n Not available Not available Not available 11/02/2017 60684 8001 [facility]ED [facility] 08:22[facility]53 7229 Sudafed medicatio n Not available Not available Not available 02/09/202351931 2 RxNorm OMNIK HUYNH [address] [place], [address], [facility] 3 10:47:51 Medications Name Sig Start Date [...] Available Not Available Not Available Flucelvax Quad 1700-3791 (PF) 60 mcg (15 mcg x 4)/0.5 [...] 50 mcg/0.25mL dose 1 completed Jael topete [facility] 12/15/2020 08:36:36 COVID-19, mRNA, LNP-S, PF, 100 mcg/0.5mL dose or 50 mcg/0.25mL dose 1 completed Jael topete [facility] 12/15/2020 08:36:42 COVID-19, mRNA, LNP-S, PF, 100 mcg/0.5mL dose or 50 mcg/0.25mL dose 2 completed Darlene topete [facility] 10/28/2021 11:57:24 influenza, unspecified formulation 6 completed Ramona topete [facility] 07/26/2022 08:29:44 influenza, unspecified formulation 0 completed Ramona topete [facility] 07/26/2022 08:29:51 Tdap 0 completed Joselo Mckeon, DO [address] [facility], [place], [address], [facility] 09/14/2020 11:58:44 Past Encounters Encounter ID Performer Location Encounter Start Date Encounter Closed Date Diagnosis/Indication Diagnosis SNOMED-CT Code Diagnosis ICD10 Code Diagnosis Note [id number] MONIK HUYNH [facility] [address] [facility],[place] [address] 07/08/2024 10:22:36 07/08/2024 11:13:10 Gastroesophageal reflux disease 070362309 K21.00 doing much better on the pantoprazo le Low back pain 533407828 M54.51 will trial amitriptyl ine and the lidocaine, hasn't started it yet, wanted to stagger the new meds Herniation of lumbar intervertebral disc with sciatica 9147291426 97888 M51.16 has a second opinion with Dr. Lewis Paralysis due to lesion of spinal cord 411206776 G95.9 stable, no major changes Bilateral foot drop 1563 560676 7740807 M21.371 has second opinion with Dr. Lewis Acute sinusitis 47612430 J01.01 will set start on abx and steriod combostero id should Dysuria 38256023 R30.0 will set up with urinalysis Pain of le ft knee joint 8067473933 68885 M25.562 knee brace and ice prnwill monitor [id number] MONIK HUYNH [facility] [address] [facility],[place] [address] 07/30/2024 09:09:15 07/30/2024 10:40:32 Asthma 367770044 J45.21 will set up with a nebulizer Influenza caused by Influenza A virus 452949677 J09.X2 will set up wtih pred and cough suppressan t Fibromyalgia 746851594 M 79.7 refill Acute bronchitis 2198252 2 J20.4 repeat CXR given worsened symptoms Health Concerns Section Related Observation LastModified by Organization Detai ls LastModified Time None Recorded Concern Status LastModified by Organization Details LastModified Time None Recorded Payers Encounter Date Sequence Insurance Name Policy Number Policy Powell Covered Member ID Powell Member ID Guarantor Name 07/30/2024 1 [facility]: ADVANTAGE BLUE (EPO) [id number] 2 Cisco Howard [id number] Mariaa Howard Notes Date Note Type Note Provider Name a nd Address Organization Details Recorded Time 07/30/2024 text/html c/o sick symptom s The patient is participating in this appointment [...] sob diagnosed with flu A at the [facility] treatment givenXR was negative at the time [...] testingneg for RSV as well MONIK HUYNH [address] [place] [address], [place], [address], [facility] 07/30/2024 10:25:23 OBGyn Episode No OBEpisode recorded.
--- OUTSIDE RECORDS SUMMARY | 2024-08-19 13:11 | XMS_ITS | Continuity of Care Document ---
Author Organization [place] - [facility], [facility] Address [address] [facility] [address] [place] [address] Assessment No assessment recorded. Plan of Treatment Reminders Order Date Submit Date Provider Last Modified By Organization Details Last Modified Time Details Appointments Hospital F/U 2024 10:00A MONIK CHRISTENSEN Not available Not available Not available FOLLOW UP 15 2024 02:15P MONIK CHRISTENSEN Not available Not available Not available Lab PT/INR 2024 025 [facility], [address] [place] [address], [id number], 08/19/2024 10:35:09 plasminog en activator inhibitor -1 (magnus-1), plasma 2024 025 [facility], [address] [place] [address], [address], 08/19/2024 10:35:09 CBC w/ auto diff 2024 025 [facility], [address] [place] [address], [address], 08/19/2024 10:35:09 prothromb in time 2024 025 [facility], [address] [place] [address], [address], 08/19/2024 10:35:09 factor V mutation, blood or tissue 2024 025 [facility], [address] [place] [address], [address], 08/19/2024 10:35:09 protein C + protein S, functiona l panel, plasma 2024 [facility], [address] [place] [address], [address], 08/19/2024 10:35:09 PT/PTT, plasma 2024 [facility], [address] [place] [address], [address], 08/19/2024 10:35:09 D-dimer, quant, plasma - recheck from hospital, trending 2024 [facility], [address] [place] [address], [address], 08/19/2024 10:35:09 Referral None recorded. Procedures None recorded. Surgeries None recorded. Imaging US, echocardi ogram 2024 [email or web address] [facility], [address] [facility], [place], [address], 08/19/2024 10:44:16 Medication Orders prednison e 20 mg tablet 2024 [facility] [address] ([facility] [address]), [address] [place], [place], [id number], 08/19/2024 10:38:54 butalbita l-acetami nophen-ca ffeine 50 mg-325 mg-40 mg tablet 2024 [facility] [address] ([facility] 827), [address] [place], [place], [id number], 08/19/2024 10:35:09 mupirocin 2 % topical ointment 2024 [facility] [address] ([facility] 827), [address] [place], [place], [id number], 08/19/2024 10:38:52 Patient TargetsNo targets recorded. Patient InstructionsNo instructions recorded. Reason for Referral None Reported. Results Created Date Observation Date Name Description Value Unit Range Abnormal Flag Note LastModifiedBy Organization Detail LastModifiedTime 07/30/19 25 07/30/2024 XR, chest , 2 view No observ ation record ed. [email or web address] [facility] [address] [facility] [address], [place], [address], 07/30/2024 13:47:42 Result Notes None recorded. Problems Name Problem SNOMED Code Status Onset Date Resolution Date Notes Provider Name and Address Organization Details Recorded Time Tobacco dependen ce syndrome 70598220 Active 2017 Joselo Mckeon DO [address] [place] [address], [address], [facility] 8 11:41:05 Carpal tunnel syndrome 55112147 Active 2018 Joselo Mckeon DO [address] [place] [address], [address], [facility] 9 11:21:46 Lumbosac ral radiculi tis 61483755 Active 2018 Joselo Mckeon DO [address] [place] [address], [address], [facility] 9 13:39:48 Effusion of joint of right knee 3194779665 57635 Active 2018 Joselo Mckeon DO [address] [place] [address], [address], [facility] 9 13:40:09 COVID-19 524767386 Active 202006/10/20 [facility] 08:44:33 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 Active 2021 Joselo Mckeon DO [address] [place] [address], [address], [facility] 2 12:32:14 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 Active 2021 Joselo Mckeon, DO [address] [place], [address], [facility] 2 12:33:25 Inflamma tion of sacroili ac joint 55508218 Active 2021 Joselo Mckeon, DO [address] [place] [address], [address], [facility] 2 12:39:14 Cough 54128647 Active 2021 MONIK HUYNH [address] [place] [address], [address], [facility] 2 15:19:41 Pneumoni tis 801951505 Active 2021 Joselo Mckeon DO [address] [place] [address], [address], [facility] 2 23:01:02 Postoper ative wound infectio n 33353547 Active 2021 Joselo Mckeon DO [address] [place] [address], [address], [facility] 2 12:18:27 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 4702451092 17023 Active 2021 Joselo Mckeon DO [address] [place] [address], [address], [facility] 2 12:21:16 Surgical incision wound of skin 4691590377 00 Active 2021 MONIK HUYNH [address] [place] [address], [address], [facility] 2 10:38:41 Sense of smell altered 347905767 Active 2022 MONIK HUYNH [address] [place] [address], [address], [facility] 3 16:54:35 Serous otitis media 79785554 Active 2022 MONIK HUYNH [address] [place], [address], [facility] 3 16:54:55 Fatigue 28337342 Active 2022 MONIK HUYNH [address] [place], [address], [facility] 3 16:56:09 Dysmenor carlo 678444337 Active 2022 MONIK HUYNH [address] [place], [address], [facility] 3 17:04:09 Multiple joint pain 92537714 Active 2022 Joselo Mckeon DO [address] [place] [address], [address], [facility] 3 11:53:02 Chronic constipa tion 627511192 Active 2022 Joselo Mckeon DO [address] [place] [address], [address], [facility] 3 12:36:43 Varicose veins of lower extremit y 54055690 Active 2022 MONIK HUYNH [address] [place], [address], [facility] 3 11:52:45 Middle ear effusion 6734416360 Active 2022 MONIK HUYNH [address] [place], [address], [facility] 3 10:45:26 Irritabl e bowel syndrome characte rized by constipa tion 761491559 Active 2022 MONIK HUYNH [address] [place], [address], [facility] 3 10:49:50 Varicose veins of lower extremit y 76625020 Active 2022 MONIK HUYNH [address] [place], [address], [facility] 3 10:49:57 Allergic rhinitis 48662794 Active 2022 MONIK HYUNH [address] [place], [address], [facility] 3 09:11:56 Candidia sis of skin 67798498 Active 2022 MONIK HUYNH [address] [place], [address], [facility] 3 09:17:19 Pain of ear 421635657 Active 2022 MONIK HUYNH [address] [place], [address], [facility] 3 10:45:53 Sprain of right ankle 0763222673 4304325 Active 2023 MONIK HUYNH [address] [place], [address], [facility] 4 14:39:22 Cervical myelopat hy 024350441 Active 2023 Joselo Mckeon, DO [address] [place], [address], [facility] 4 09:34:41 Liver enzymes level above referenc e range 663081418 Active 2023 MONIK HUYNH [address] [place], [address], [facility] 4 13:38:49 Constipa tion 22232061 Active 2023 MONIK HUYNH [address] [place], [address], [facility] 4 13:39:54 Dysuria 58512282 Active 2023 MONIK HUYNH [address] [place], [address], [facility] 4 13:48:18 Umbilica l hernia 598945498 Active 2023 MONIK HUYNH [address] [place], [address], [facility] 4 10:43:27 Spasm of back muscles 966425483 Active 2023 MONIK HUYNH [address] [place], [address], [facility] 4 10:49:31 Acne 32232179 Active 2023 MONIK HUYNH [address] [place] [address], [address], [facility] 4 10:52:50 Acute otitis media 8375160 Active 2023 MONIK HUYNH [address] [place] [address], [address], [facility] 4 11:21:42 Chronic sinusiti s 74362078 Active 2023 MONIK HUYNH [address] [place] [address], [address], [facility] 4 11:23:40 Cervical radiculo ivanna 02182004 Active 2023 MONIK HUYNH [address] [place] [address], [address], [facility] 4 11:25:59 Pain in finger of right hand 7965617398 97279 Active 2023 MONIK HUYNH [address] [place] [address], [address], [facility] 4 10:55:31 Closed fracture of distal phalanx of ring finger of right hand 8848766428 8361638 Active 2023 MONIK HUYNH [address] [place] [address], [address], [facility] 4 09:58:17 Acute sinusiti s 35308460 Active 2023 MONIK HUYNH [address] [place], [address], [facility] 4 09:42:52 Degenera tion of lumbar interver tebral disc 30272996 Active 2023 MONIK HUYNH [address] [place], [address], [facility] 4 11:12:53 Onychomy cosis 122987795 Active 2023 MONIK HUYNH [address] [place], [address], [facility] 4 11:19:35 Gastroes ophageal reflux disease 548183097 Active 2023 MONIK HUYNH [address] [place], [address], [facility] 4 11:45:29 Low back pain 362517314 Active 2023 MONIK HUYNH [address] [place], [address], [facility] 4 11:52:36 Pain of left knee joint 8935337369 83914 Active 2024 Joselo Mckeon DO [address] [place], [address], [facility] 5 12:00:04 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 332315943 Active 2024 MONIK HUYNH [address] [place], [address], [facility] 5 10:52:38 Bilatera l foot drop 5481109649 8315838 Active 2024 MONIK HUYNH [address] [place], [address], [facility] 5 10:52:38 Asthma 625530945 Active 2024 MONIK HUYNH [address] [place], [address], [facility] 5 10:14:35 Influenz a caused by Influenz a A virus 669885344 Active 2024 MONIK HUYNH [address] [place], [address], [facility] 5 10:17:23 Acute bronchit is 18645973 Active 2024 MONIK HUYNH [address] [place], [address], [facility] 5 10:20:18 Dyspnea 480244058 Active 2024 MONIK HUYNH [address] [place], [address], [facility] 5 10:57:51 Pulmonar y embolism 93908184 Active 2024 MONIK HUYNH [address] [place], [address], [facility] 5 14:32:01 Acute pulmonar y embolism 042815453 Active 2024 MONIK HUYNH [address] [place], [address], [facility] 5 08:42:40 Cor pulmonal e 10478627 Active 2024 MONIK HUYNH [address] [place], [address], [facility] 5 08:43:00 Blood coagulat ion disorder 46321209 Active 2024 MONIK HUYNH [address] [place], [address], [facility] 5 08:43:39 Migraine 02158316 Active 2024 MONIK HUYNH [address] [place], [address], [facility] 5 10:22:38 Pruritic rash 46211460 Active 2024 MONIK HUYNH [address] [place], [address], [facility] 5 10:37:36 Follicul itis 15286343 Active 2024 MONIK HUYNH [address] [place], [address], [facility] 5 10:39:39 Substan e abuse 82206297 Completed 201702/08/2018 narcotic Joselo Mckeon DO [address] [place] [address], [address], [facility] 8 11:40:11 Fibromya lgia 753360193 [facility] 08:24[facility]16 Bursitis 37942978 Active 2017 R hip, trochant ollie M70.61 Blanka Gentile [facility] 8 08:24:54 Herpes simplex 49762380 Active 2017 genital Blankachaitanya Gentile [facility] 8 08:25:25 Psoriati c arthriti s 396706008 Active 2017 [facility] 08:25:42 Depressi ve disorder 73376752 Active 2017 Joselo Mckeon DO [address] [place] [address], [address], [facility] 8 11:47:42 Anxiety disorder 992594358 Active 2017 Joselo Mckeon DO [address] [place] [address], [address], [facility] 8 11:47:54 Problem Notes None recorded. Procedures Surgical History Date Name Laterality Status Provider Name and Address Organization Details Recorded Time 11/13/2018 Date of Last Pap Smear completed Darlene Costa [facility] 01/17/2019 14:01:49 Imaging Results None recorded. Procedure Notes None recorded. Medical Equipment None Reported. Allergies Allergen ID Allergen Name Allergen Category Reaction Reaction Severity Criticality Documentation Date Start Date Code Code System Note Provider Name and Address Organization Details Recorded Time 1450 Product containin g penicilli n (product) medicatio n Not available Not available Not available 11/02/2017 60976 8001 SNOMED Blanka Igel efrem, [facility] 8 08:22:53 7229 Sudafed medicatio n Not available Not available Not available 02/09/2023 2 RxNorm MONIK HUYNH [address] [place] [address], [address], [facility] 3 10:47:51 Medications Name Sig [...] 2024 active Not Available Not Available Not Jayson champagne mirtazapi ne 15 mg tablet 11/02 completed [...] Available Not Available Not Available Flucelvax Quad 5218-2760 (PF) 60 mcg (15 mcg x 4)/0.5 [...] Updated DateTime 5 167.64 cm 29.5 kg/m2 32376.6 1 g 100 /min 97 % 97 % 118 mm[Hg] 76 mm[Hg] [facility] 5 10:06:24 Social History Question [...] 50 mcg/0.25mL dose 1 completed Jael topete [facility] 12/15/2020 08:36:36 COVID-19, mRNA, LNP-S, PF, 100 mcg/0.5mL dose or 50 mcg/0.25mL dose 1 completed Jael topete [facility] 12/15/2020 08:36:42 COVID-19, mRNA, LNP-S, PF, 100 mcg/0.5mL dose or 50 mcg/0.25mL dose 2 completed Darlene topete [facility] 10/28/2021 11:57:24 influenza, unspecified formulation 6 completed Ramona topete [facility] 07/26/2022 08:29:44 influenza, unspecified formulation 0 completed Ramona topete [facility] 07/26/2022 08:29:51 Tdap 0 completed Joselo Mckeon, DO [address] [place], [address], [facility] 09/14/2020 11:58:44 Past Encounters Encounter ID Performer Location Encounter Start Date Encounter Closed Date Diagnosis/Indication Diagnosis SNOMED-CT Code Diagnosis ICD10 Code Diagnosis Note [id number] MONIK HUYNH [facility] [address] [facility] [address] [address] 07/30/2024 09:09:15 07/30/2024 10:40:32 Asthma 793525319 J45.21 will set up with a nebulizer Influenza caused by Influenza A virus 506454241 J09.X2 will set up wtih pred and cough suppressan t Fibromyalgia 058985191 M 79.7 refill Acute bronchitis 9940873 2 J20.4 repeat CXR given worsened symptoms [id number] MONIK HUYNH [facility] [address] [facility] [address] 08/05/2024 10:41:34 08/05/2024 12:08:19 Influenza caused by Influenza A virus 555023311 J09.X2 will set up wtih pred and cough suppressan t Dyspnea 643440788 R06.[address] chest since now has two negative XRs and her symptoms are worsening Lumbosacra l radiculitis 42773786 M54.17 will take over script from 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 since she hasn't responded to her refill requests Tobacco de pendence syndrome 09870020 F17.290 will start on nicotine 21 mg [id number] MONIK HUYNH [facility] [address] [facility] [address] 08/13/2024 11:39:37 08/13/2024 14:46:18 Pulmonary embolism 28792304 I26.99 will fu next week Degenerati on of lumbar intervertebral disc 28739861 M51.369 okay right now, tramadol helps for a bit to take the edge off and she uses APAP otherwises o stable currently [id number] MONIK HUYNH [facility] [address] [facility] [address] [address] 08/19/2024 09:58:16 08/19/2024 10:44:16 Acute pulmonary embolism 017835854 I26.99 send in US echo Cor pulmonale 59955071 I 27.23 recheck US echo Dyspnea 490052587 R06.03 recheck CTA Blood coag ulation disorder 86558309 D68.59 start with lab work Migraine 35094775 G43.90 9 refill Folliculitis 40648783 L7 3.9 will set up with cream Pruritic rash 00537850 L 28.2 will set up wtih PRN prednisone Health Concerns Section Related Observation LastModified by Organization Detai ls LastModified Time None Recorded Concern Status LastModified by Organization Details LastModified Time None Recorded Payers Encounter Date Sequence Insurance Name Policy Number Policy Powell Covered Member ID Powell Member ID Guarantor Name 08/19/2024 1 [place]PO[place] [id number] 2 Cisco Howard [id number] Mariaa Howard Notes Date Note Type Note Provider Name a nd Address Organization Details Recorded Time 5 text/html hospital d/c: patient has flu [...] cream for rash under breasts MONIK HUYNH [address] [place] [address], [place], [address], [facility] 08/19/2024 10:43:01 OBGyn Episode No OBEpisode recorded.
--- OUTSIDE RECORDS SUMMARY | 2024-08-19 13:12 | XMS_ITS | Clinical Summary ---
Author Organization [facility] Address [address] [place] [address] Care Team Providers Care Admitting Interviewer Name Role Phone Joselo Mckeon Primary Care Provider [phone] Allergies Active Allergy Reactions Criticality Noted Date Comments Penicillamine Rash Low 12/08/2015 Penicillins 04/01/2021 Medications Medication Sig Dispensed Refills Start Date End Date Status diazepam (VALIUM) tablet 5 mg Take 5 mg by mouth every 6 (six) hours as needed for anxiety. 0 Active DICLOFENAC PO Take by mouth. 0 Active Cyclobenzaprine HCl (FLEXERIL PO) Take by mouth. 0 Active Buprenorphine HCl-Naloxone HCl (SUBOXONE SL) Place under the tongue. 0 Active Efinaconazole (JUBLIA) 10 % SOLN Apply 8 mL topically daily. Apply topically to the affected nail 8 mL 2 12/08/2015 Active Z-Xgrydvjawvlc-M7-B 12 3-35-2 MG TABS Take 1 tablet by mouth 2 (two) times a day. 60 tablet 6 11/28/2016 Active methylPREDNISolone (MEDROL DOSEPACK) 4 MG tablet Use as directed 21 tablet 0 04/01/2021 Active methylPREDNISolone (MEDROL DOSEPACK) 4 MG tablet Use as directed 21 tablet 0 09/23/2021 Active methylPREDNISolone (MEDROL DOSEPACK) 4 MG tablet Use as directed 21 tablet 0 01/27/2022 Active methylPREDNISolone (MEDROL DOSEPACK) 4 MG tablet Use as directed 21 tablet 0 07/14/2022 Active celecoxib (CeleBREX) 100 MG capsule Take 1 capsule (100 mg total) by mouth 2 (two) times a day. 0 11/27/2022 Active methylPREDNISolone (MEDROL DOSEPACK) 4 MG tablet Use as directed 21 tablet 0 12/22/2022 Active gabapentin (NEURONTIN) 300 MG capsule Take 1 capsule (300 mg total) by mouth 3 (three) times a day. 270 capsule 0 12/22/2022 Active gabapentin (NEURONTIN) 300 MG capsule Take 1 capsule (300 mg total) by mouth 3 (three) times a day. 270 capsule 6 03/30/2023 Active methylPREDNISolone (MEDROL DOSEPACK) 4 MG tablet Use as directed 21 tablet 0 03/30/2023 Active Active Problems Problem Noted Date Diagnosed Date Neuropathic pain 11/28/2016 Psoriatic arthritis 08/15/2016 Bilateral foot pain 08/15/2016 Posterior tibial tendinitis 06/20/2016 Edema of right foot 06/20/2016 Plantar fasciitis 03/28/2016 Foot pain, bilateral 12/08/2015 Gastrocnemius equinus 12/08/2015 Capsulitis of right ankle 12/08/2015 Pes cavus of right foot 12/08/2015 Congenital pes planus 12/08/2015 Unequal leg length 12/08/2015 Varicose veins of lower extremity with edema Onychomycosis 12/08/2015 Ingrown toenail 12/08/2015 Family History Medical History Relation Name Comments No Sig Med Hx Father No Sig Med Hx Mother Relation Name Status Comments Father Mother Social History Tobacco Use Types Packs/Day Years Used Date Smoking Tobacco: Never Alcohol Use Standard Drinks/Week Comments Yes 0 (1 standard drink = 0.6 oz pur e alcohol) Sex and Gender Information Value Date Recorded Sex Assigned at Not on file Gender Identity Not on file Sexual Orientation Not on file Job Start Date Occupation Industry Not on file Not on file Not on file Last Filed Vital Signs Vital Sign Reading Time Taken Comments Blood Pressure 150/82 08/15/2016 10:27 AM EST Pulse - - Temperature - - Respiratory Rate - - Oxygen Saturation - - Inhaled Oxygen Concentration - - Weight 81.6 kg (180 lb) 03/30/2023 11:31 AM EDT Height 170.2 cm (5' 7 ) 03/30/2023 11:31 AM EDT Body Mass Index 28.19 03/30/2023 11:31 AM EDT Plan of Treatment Health Maintenance Due Date Last Done Comments Hepatitis B Vaccines (1 of 3 - 3-dose series) 1979 Hepatitis C Screening 1979 Depression Screening 1991 Preventative Health Evaluation 1997 Cervical Cancer Screening (Pap Smear) 2000 COVID-19 Vaccine ( season) 2024 11/02/2020, 10/05/2020 Influenza Vaccine (#1) 2024 BMI Counseling 03/30/2024 03/30/2023, 12/09, 07/14/2022, Additional history exists Colon Cancer Screening (Colonoscopy) 2024 DTap / Tdap / Td (2 - Td or Tdap) 03/23/2030 03/23/2020 Pneumococcal Vaccine Aged Out No long er eligible based on patient's age to complete this topic RSV Ped < 20 months Aged Out No longe r eligible based on patient's age to complete this topic Care Teams Admitting Interviewer Relationship Specialty Start Date End Date Joselo Mckeon DO [address] [place] [address] [place] [phone] PCP - General Unknown Physician Specialty 12/08/15
== END 2024-08-19 10:51 | disposition home or self-care (01) ==
LOC: HO.MANLDS 10:50
PROVIDERS: Visit Provider Physician Assistant
DX: Z13.89 Encounter for screening for other disorder (principal)

== ENCOUNTER 2024-08-19 11:37 | Outpatient (REF) | payer BC, SELFPAY ==
[2024-08-19 12:05] LABS: MANUAL DIFF FLAG NO
[2024-08-19 12:36] LABS: Basophils Absolute Auto 0.1 X10*3/uL (0.0-0.2); Basophils Percent Auto 0.8 % (0-2); Eosinophils Absolute Auto 0.1 X10*3/uL (0.0-0.4); Hematocrit 45.8 % (37.0-47.0); Hemoglobin 15.1 g/dl (12.0-16.0); Imm Gran Abs Auto 0.03 X10*3/uL (0.00-0.03); Imm Gran Pct Auto 0.5 % (0.0-0.4); Lymphocytes Absolute Auto 1.9 X10*3/uL (1.2-4.9); Lymphocytes Percent Auto 31.4 % (20-40); Mean Corpuscular Hemoglobin 30.5 pg (27.0-33.0); Mean Corpuscular Volume 92.5 fL (80.0-98.0); Mean Platelet Volume 10.7 fL (9.4-12.3); Monocytes Absolute Auto 0.6 X10*3/uL (0.1-1.2); Monocytes Percent Auto 9.4 % (2-11); Neutrophils Absolute Auto 3.4 x10*3/uL (2.0-8.3); Neutrophils Percent Auto 56.9 % (45-73); Platelet Count 196 X10*3/uL (160-400); Red Blood Count 4.95 X10*6/uL (4.20-5.50); Red Cell Distribution Width 12.6 % (11.0-16.0); White Blood Count 5.9 X10*3/uL (4.8-10.8)
[2024-08-19 12:41] LABS: INTERNATIONAL NORM RATIO 1.2 (0.9-1.1)
[2024-08-19 12:43] LABS: D Dimer High Sensitivity 157 NG/ML; Partial Thromboplastin Time 42.3 SEC (26.0-36.8)
--- OUTSIDE RECORDS SUMMARY | 2024-08-19 14:26 | XMS_ITS | Clinical Summary ---
Author Organization [facility] Address [address] [place] [address] Care Team Providers Care Motor Vehicle Representative Name Role Phone Joselo Mckeon Primary Care Provider [phone] Allergies Active Allergy Reactions Criticality Noted Date [...] affected nail 8 mL 2 12/08/2015 Active R-Izplugteghsb-E1-B 12 3-35-2 MG TABS Take 1 tablet [...] age to complete this topic Care Teams Motor Vehicle Representative Relationship Specialty Start Date End Date Joselo Mckeon DO [address] [place] [address] [place] [id number] PCP - General Unknown Physician Specialty 12/08/15
[2024-08-22 23:13] LABS: Protein C Activity 119 % normal (70-180); Protein S Activity rflx Tot&Fr 98 % normal (60-140)
[2024-08-25 17:14] LABS: Factor V Leiden NEGATIVE
== END 2024-08-19 11:38 | disposition home or self-care (01) ==
LOC: HO.LAB 11:37
PROVIDERS: PCP Internal Medicine; Visit Provider Physician Assistant
DX: I26.99 Other pulmonary embolism without acute cor pulmonale (principal); D68.59 Other primary thrombophilia
CPT/HCPCS: 81241; 85025; 85302; 85303; 85306; 85379; 85415; 85610; 85730

== ENCOUNTER 2024-10-07 10:05 | Outpatient (REF) | payer BC, SELFPAY ==
--- OUTSIDE RECORDS SUMMARY | 2024-10-07 11:27 | XMS_ITS | Data Portability ---
Author Organization [facility], Home Service Address [address] [facility] [place] [address] Assessment Encounter Date Assessment Date Assessment LastModified by Organization Details LastModified Time 08/13/2024 08/13/2024 Patient agreed and verbally consents to this audio and video Telehealth appt via a secure platform [email or web address] Not available 08/13/2024 14:31:34 10/07/2024 10/07/2024 Patient presented for medication refill. Patient tolerating medication well at current dose without adverse effects. Refilled as below. Discussed plan with patient, who expressed understanding . Follow up as noted below. [email or web address] Not available 10/07/2024 09:39:54 Plan of Treatment Reminders Order Date Submit Date Provider Last Modified By Organization Details Last Modified Time Details Appointments FOLLOW UP 15 2024 09:30A M MONIK HUYNH Not available Not available Not available FOLLOW UP 15 2024 09:45A M MONIK HUYNH Not available Not available Not available Lab ESR (erythroc yte sedimenta tion rate), blood 2024 025 [facility], [address] [place] [address], [address], 10/07/2024 09:55:23 C-reactiv e protein, quantitat ivan, serum or plasma 2024 025 [facility], [address] [place] [address], [place], [address], 10/07/2024 09:55:23 iron + TIBC + ferritin, serum 2024 025 [facility], [address] [place] [address], [address], 10/07/2024 09:55:23 vitamin D, 25-hydrox y, total, serum 2024 025 [facility], [address] [place] [address], [address], 10/07/2024 09:55:23 vitamin B12 + folate, serum or blood 2024 025 [facility], [address] [place] [address], [address], 10/07/2024 09:55:23 TSH + free T4, serum 2024 025 [facility], [address] [place] [address], [address], 10/07/2024 09:55:23 CBC w/ auto diff 2024 025 [facility], [address] [place] [address], [address], 10/07/2024 09:55:23 CMP, serum or plasma 2024 025 [facility], [address] [place] [address], [address], 10/07/2024 09:55:23 hemoglobi n A1c, QN, blood 2024 025 [facility], [address] [place] [address], [address], 10/07/2024 09:55:23 PT/INR 2024 025 [email or web address] [facility], [address] [place] [address], [address], 08/19/2024 10:35:09 plasminog en activator inhibitor -1 (magnus-1), plasma 2024 025 [facility], [address] [place] [address], [place], [address], 09/02/2024 11:41:34 CBC w/ auto diff 2024 025 [facility], [address] [place] [address], [address], 08/20/2024 13:56:43 prothromb in time 2024 025 [facility], [address] [place] [address], [place], [address], 08/19/2024 10:35:09 factor V mutation, blood or tissue 2024 025 [facility], [address] [place] [address], [address], 08/26/2024 12:44:51 protein C + protein S, functiona l panel, plasma 2024 025 [facility], [address] [place] [address], [place], [address], 08/25/2024 12:19:30 PT/PTT, plasma 2024 025 [facility], [address] [place] [address], [address], 08/20/2024 13:56:43 D-dimer, quant, plasma - recheck from hospital, trending 2024 025 [facility], [address] [place] [address], [address], 08/19/2024 10:35:09 Referral gastroent erologist referral 2024 025 [facility], [address] [place] [address], [address], 10/07/2024 10:38:56 Procedures None recorded. Surgeries None recorded. Imaging PFT, complete 2024 [facility], [address] [place], [address], 10/07/2024 09:51:16 US, echocardi ogram 2024 [facility], [address] [place], [address], 08/20/2024 08:17:29 CT, angiogram , chest, w/wo contrast - 1 mos recheck 2024 [facility], [address] [place], [address], 09/03/2024 19:10:27 CT, chest, w/o contrast 2024 [facility], [address] [place], [address], 08/18/2024 09:15:11 Medication Orders prednison e 10 mg tablet 2024 025 [place] [address] ([facility] 827), [address] [place] [address], [id number], 10/07/2024 09:49:35 diazepam 5 mg tablet 2024 025 [place] [address] ([facility] 827), [address] [place], [place], [id number], 09/02/2024 14:45:14 tramadol 50 mg tablet 2024 025 [place] [address] ([facility] 827), [address] [place], [id number], 09/02/2024 14:45:14 prednison e 20 mg tablet 2024 025 [place] [address] ([place] [address]), [address] [place], [id number], 08/19/2024 10:38:54 butalbita l-acetami nophen-ca ffeine 50 mg-325 mg-40 mg tablet 2024 025 mer [facility]willi[facility] ([place] [address]), [address] [place], [id number], 08/19/2024 10:35:09 mupirocin 2 % topical ointment 2024 025 CALISTA [facility] ([place] [address]), [address] [place], [id number], 08/19/2024 10:38:52 nicotine 21 mg/24 hr daily transderm al patch 2024 025 [facility] ([place] [address]), [address] [place], [id number], 08/05/2024 11:06:41 prednison e 10 mg tablet 2024 025 [facility] ([place] [address]), [address] [place], [id number], 08/13/2024 14:41:21 Zithromax Z-Jamie 250 mg tablet 2024 025 [facility] ([place] [address]), [address] [place], [id number], 08/13/2024 14:41:04 gabapenti n 300 mg capsule 2024 025 [facility] ([place] [address]), [address] [place], [id number], 08/05/2024 11:01:29 Patient TargetsNo targets recorded. Patient InstructionsNo instructions recorded. 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 [email or web address] [facility] [address] [facility] [address], [place], [address], 07/30/2024 13:47:42 09/04/19 25 09/03/2024 CT, angio gram, chest , w/wo contr ast No observ ation record ed. [email or web address], [address], 09/05/2024 13:48:14 09/05/19 25 09/03/2024 US, echoc ardio gram No observ ation record ed. [email or web address], [address], 09/05/2024 09:19:38 Result Notes None recorded. Problems Name Problem SNOMED Code Status Onset Date Resolution Date Notes Provider Name and Address Organization Details Recorded Time Tobacco dependen ce syndrome 30929329 Active 2017 Joselo Mckeon DO [address] [place] [address], [address], [facility] 8 11:41:05 Carpal tunnel syndrome 11889430 Active 2018 Joselo Mckeon DO [address] [place] [address], [address], [place] 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 Active 2021 Joselo Mckeon, DO [address] [place] [address], [address], [facility] 2 12:32:14 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 Active 2021 Joselo Mckeon, DO [address] [place] [address], [address], [facility] 2 12:33:25 Inflamma tion of sacroili ac joint 80544952 Active 2021 Joselo Mckeon, DO [address] [place] [address], [address], [facility] 2 12:39:14 Cough 54872716 Active 2021 MONIK HUYNH [address] [place] [address], [address], [facility] 2 15:19:41 Pneumoni tis 797431630 Active 2021 Joselo Mckeon DO [address] [place] [address], [address], [facility] 2 23:01:02 Postoper ative wound infectio n 95158655 Active 2021 Joselo Mckeon DO [address] [place] [address], [address], [facility] 2 12:18:27 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 6094704103 46576 Active 2021 Joselo Mckeon DO [address] [place], [address], [facility] 2 12:21:16 Surgical incision wound of skin 1034545396 00 Active 2021 MONIK HUYNH [address] [place] [address], [address], [facility] 2 10:38:41 Sense of smell altered 750586928 Active 2022 MONIK HUYNH [address] [place] [address], [address], [facility] 3 16:54:35 Serous otitis media 00099328 Active 2022 MONIK HUYNH [address] [place] [address], [address], [facility] 3 16:54:55 Fatigue 39503529 Active 2022 MONIK HUYNH [address] [place] [address], [address], [facility] 5 09:40:10 Dysmenor carlo 627261469 Active 2022 MONIK HUYNH [address] [place] [address], [address], [facility] 3 17:04:09 Pain of multiple joints 98230167 Active 2022 Joselo Mckeon DO [address] [place] [address], [address], [facility] 3 11:53:02 Chronic constipa tion 755507349 Active 2022 Joselo Mckeon DO [address] [place] [address], [address], [facility] 3 12:36:43 Varicose veins of lower extremit y 04190521 Active 2022 MONIK HUYNH [address] [place] [address], [address], [facility] 3 11:52:45 Middle ear effusion 4756189492 Active 2022 MONIK HUYNH [address] [place], [address], [facility] 3 10:45:26 Irritabl e bowel syndrome characte rized by constipa tion 165727448 Active 2022 MONIK HUYNH [address] [place], [address], [facility] 3 10:49:50 Varicose veins of lower extremit y 88720629 Active 2022 MONIK HUYNH [address] [place], [address], [facility] 3 10:49:57 Allergic rhinitis 29820284 Active 2022 MONIK HUYNH [address] [place], [address], [facility] 3 09:11:56 Candidia sis of skin 62042383 Active 2022 MONIK HUYNH [address] [place] [address], [address], [facility] 3 09:17:19 Pain of ear 263209368 Active 2022 MONIK HUYNH [address] [place], [address], [facility] 3 10:45:53 Sprain of right ankle 6102716257 4144414 Active 2023 MONIK HUYNH [address] [place] [address], [address], [facility] 4 14:39:22 Cervical myelopat hy 217163198 Active 2023 Joselo Mckeon DO [address] [place], [address], [facility] 4 09:34:41 Liver enzymes level above referenc e range 589377344 Active 2023 MONIK HUYNH [address] [place], [address], [facility] 4 13:38:49 Constipa tion 59888245 Active 2023 MONIK HUYNH [address] [place], [address], [facility] 4 13:39:54 Dysuria 68151978 Active 2023 MONIK HUYNH [address] [place] [address], [address], [facility] 4 13:48:18 Umbilica l hernia 342089726 Active 2023 MONIK HUYNH [address] [place] [address], [address], [facility] 4 10:43:27 Spasm of back muscles 466349319 Active 2023 MONIK HUYNH [address] [place] [address], [address], [facility] 4 10:49:31 Acne 86772098 Active 2023 MONIK HUYNH [address] [place] [address], [address], [facility] 4 10:52:50 Acute otitis media 5904916 Active 2023 MONIK HUYNH [address] [place] [address], [address], [facility] 4 11:21:42 Chronic sinusiti s 78380778 Active 2023 MONIK HUYNH [address] [place] [address], [address], [facility] 4 11:23:40 Cervical radiculo ivanna 45041070 Active 2023 MONIK HUYNH [address] [place] [address], [address], [facility] 4 11:25:59 Pain in finger of right hand 2624956565 31457 Active 2023 MONIK HUYNH [address] [place], [address], [facility] 4 10:55:31 Closed fracture of distal phalanx of ring finger of right hand 3639706894 3284368 Active 2023 MONIK HUYNH [address] [place], [address], [facility] 4 09:58:17 Acute sinusiti s 12170924 Active 2023 MONIK HUYNH [address] [place] [address], [address], [facility] 4 09:42:52 Degenera tion of lumbar interver tebral disc 86228579 Active 2023 MONIK HUYNH [address] [place] [address], [address], [facility] 4 11:12:53 Onychomy cosis 606493276 Active 2023 MONIK HUYNH [address] [place] [address], [address], [facility] 4 11:19:35 Gastroes ophageal reflux disease 498311960 Active 2023 MONIK HUYNH [address] [place] [address], [address], [facility] 4 11:45:29 Low back pain 830280502 Active 2023 MONIK HUYNH [address] [place] [address], [address], [facility] 4 11:52:36 Pain of left knee joint 3759810537 96[address] Active 2024 Joselo Mckeon DO [address] [place] [address], [address], [facility] 5 12:00:04 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 369213726 Active 2024 MONIK HUYNH [address] [place], [address], [facility] 5 10:52:38 Bilatera l foot drop 0587107771 8543661 Active 2024 MONIK HUYNH [address] [place], [address], [facility] 5 10:52:38 Asthma 664274072 Active 2024 MONIK HUYNH [address] [place], [address], [facility] 5 10:14:35 Influenz a caused by Influenz a A virus 996581853 Active 2024 MONIK HUYNH [address] [place], [address], [facility] 5 10:17:23 Acute bronchit is 68585035 Active 2024 MONIK HUYNH [address] [place] [address], [address], [facility] 5 10:20:18 Dyspnea 649899899 Active 2024 MONIK HUYNH [address] [place], [address], [facility] 5 09:41:19 Pulmonar y embolism 65735583 Active 2024 MONIK HUYNH [address] [place] [address], [address], [facility] 5 14:32:01 Acute pulmonar y embolism 384642571 Active 2024 MONIK HUYNH [address] [place], [address], [facility] 5 08:42:40 Cor pulmonal e 89512255 Active 2024 MONIK HUYNH [address] [place], [address], [facility] 5 08:43:00 Blood coagulat ion disorder 05989510 Active 2024 MONIK HUYNH [address] [place], [address], [facility] 5 08:43:39 Migraine 77486399 Active 2024 MONIK HUYNH [address] [place], [address], [facility] 5 10:22:38 Pruritic rash 94907168 Active 2024 MONIK HUYNH [address] [place], [address], [facility] 5 10:37:36 Follicul itis 02923706 Active 2024 MONIK HUYNH [address] [place], [address], [facility] 5 10:39:39 Substan e abuse 58458391 Completed 201702/08/2018 narcotic Joselo Mckeon, [address] [place], [address], [facility] 8 11:40:11 Fibromya lgia 457354078 Active 2017 Blanka topete [facility] 8 08:24:16 Bursitis 20596356 Active 2017 R hip, trochant ollie M70.61 Blakna topete [facility] 8 08:24:54 Herpes simplex 33615408 Active 2017 [facility] 08:25[facility]25 Psoriati c arthriti s 409973703 Active 2017 Blanka topete, [facility] 8 08:25:42 Depressi ve disorder 40849934 Active 2017 Joselo MckeonDO [address] [place] [address], [address], [facility] 8 11:47:42 Anxiety disorder 369602538 Active 2017 Joselo TrevinoKun Mckeon, [address] [place], [address], [facility] 8 11:47:54 Problem Notes None recorded. Procedures Surgical History Date Name Laterality Status Provider Name and Address Organization Details Recorded Time 11/13/2018 Date of Last Pap Smear completed Darlene Costa [facility] 01/17/2019 14:01:49 Imaging Results Imaging Date Name Status LastModified by Organization Details LastModified Time 07/30/2024 XR, chest, 2 view completed [email or web address] [address], [place], [address], 07/30/2024 13:47:42 09/03/2024 CT, angiogram, chest, w/wo contrast completed [email or web address] [place] [address], [address], 09/05/2024 13:48:14 09/03/2024 US, echocardiogram completed [email or web address], [address], 09/05/2024 09:19:38 Procedure Notes None recorded. Medical Equipment None Reported. Allergies Allergen ID Allergen Name Allergen Category Reaction Reaction Severity Criticality Documentation Date Start Date Code Code System Note Provider Name and Address Organization Details Recorded Time 1450 Product containin g penicilli n (product) medicatio n Not available Not available Not available 11/02/2017 81192 8001 SNOMED Blanka Seferino efrem [facility] 8 08:22:53 7229 Sudafed medicatio n Not available Not available Not available 02/09/2023 39753 2 RxNorm MONIK HUYNH [address] [place], [address], [facility] 3 10:47:51 Medications [...] Not Available prednison e 10 mg tablet Take 1 tablet every day by oral route as directed for 30 days. 2024 active Not Available Not Available Not Avai lable venlafaxi ne ER 75 mg capsule,e xtended [...] Avai lable prednison e 20 mg tablet TAKE 1 TABLET BY MOUTH EVERY DAY NEEDED active Not Available Not Available No t Available clobetaso l 0.05 % topical cream APPLY [...] nophen-ca ffeine 50 mg-325 mg-40 mg tablet TAKE 1 TABLET BY MOUTH THREE TIMES DAILY NEEDED active Not Available Not Available No t Available ketorolac 10 mg tablet Take 1 tablet [...] Available mupirocin 2 % topical ointment APPLY SMALL AMOUNT TOPICALL Y TO THE AFFECTED AREA THREE TIMES DAILY active Not Available Not Available No t Available mirtazapi ne 15 mg tablet 11/02 completed [...] mg-naloxo ne 2 mg sublingua l film DISSOLVE 2 FILMS UNDER THE TONGUE EVERY DAY active Not Available Not [...] Available Not Available Not Available Flucelvax Quad 2965-9829 (PF) 60 mcg (15 mcg x 4)/0.5 [...] Updated DateTime 5 167.64 cm 30.1 kg/m2 01728.6 2 g 105 /min 98 % 98 % 136 mm[Hg] 78 mm[Hg] Nette Baig [facility] 5 10:48:50 Date Recorded Body height Body mass index (BMI) Body weight Heart rate Oxygen saturation Oxygen saturation in Arterial blood by Pulse oximetry Systolic blood pressure Diastolic blood pressure Provider Name and Address Organization Details Last Updated DateTime 5 167.64 cm 29.5 kg/m2 10702.6 1 g 100 /min 97 % 97 % 118 mm[Hg] 76 mm[Hg] Albin Black [facility] 5 10:06:24 Date Recorded Body height Body mass index (BMI) Body weight Heart rate Oxygen saturation Oxygen saturation in Arterial blood by Pulse oximetry Systolic blood pressure Diastolic blood pressure Provider Name and Address Organization Details Last Updated DateTime 5 167.64 cm 29.4 kg/m2 58011.8 1 g 96 /min 99 % 99 % 120 mm[Hg] 72 mm[Hg] Tiffany Rowe [facility] 5 14:25:41 Date Recorded Body height Body mass index (BMI) Body weight Heart rate Oxygen saturation Oxygen saturation in Arterial blood by Pulse oximetry Systolic blood pressure Diastolic blood pressure Provider Name and Address Organization Details Last Updated DateTime 5 167.64 cm 31.7 kg/m2 37023.8 2 g 85 /min 97 % 97 % 136 mm[Hg] 82 mm[Hg] Nette Jovanni [facility] 5 09:36:36 Social History Question Answer Notes LastModified by Organizat ion Details LastModified Time Tobacco Smoking Status Current Every Day Smoker Not Available [facility] 03:36:23 What Was The Date Of Your Most Recent Tobacco Screening? 10/07/2024 [email or web address] Information not available 10/07/2024 How Much Tobacco Do You Smoke? 0.5 [...] or 50 mcg/0.25mL dose 1 completed Jael Pena [facility] 12/15/2020 08:36:36 COVID-19, mRNA, LNP-S, PF, 100 mcg/0.5mL dose or 50 mcg/0.25mL dose 1 completed Jael topete [facility] Internal [facility] 12/15/2020 08:36:42 COVID-19, mRNA, LNP-S, PF, 100 mcg/0.5mL dose or 50 mcg/0.25mL dose 2 completed Darlene Costa [facility] 10/28/2021 11:57:24 influenza, unspecified formulation 6 completed Ramona Singh [facility] 07/26/2022 08:29:44 influenza, unspecified formulation 0 completed Ramona topete [facility] 07/26/2022 08:29:51 Tdap 0 completed Joselo Edy Mckeon DO [address] [place] [address], [address], [facility] Internal [facility] 09/14/2020 11:58:44 Past Encounters Encounter ID Performer Location Encounter Start Date Encounter Closed Date Diagnosis/Indication Diagnosis SNOMED-CT Code Diagnosis ICD10 Code Diagnosis Note [id number] Joselo Mckeon DO [facility] [address] [facility],[place] [address] 11/02/2017 11:16:50 11/02/2017 14:11:34 Psoriatic arthritis 363656114 L40.50 will be following up with dr santos Anxiety disorder F41.9 still stressed but is hanging tough states having difficulty fallin asleep Stress fra cture of metatarsal bone 864034921 M84.374A will need ongoing podiatry PT to assist with gait [id number] Joselo Mckeon DO [facility] [address] [place] [address],[place] [address] 12/28/2017 10:56:52 12/28/2017 12:31:23 Anxiety disorder F41.9 still stressed but is hanging tough states having difficulty fallin asleep Depressive disorder 3548 9007 F33.9 Fibromyalgia 131274842 M 79.7 consider trial of savella sfter lnog discussion baout ongoing aches and point tenderness areas [id number] Joselo Mckeon [facility] [address] [place] [address],[place] [address] 02/08/2018 10:54:18 02/08/2018 12:23:49 Depressive disorder 43975581 F33.9 at baseline no changes at this time Fibromyalgia 012097872 M 79.7 unable to take savella due to interactio ns with drugs has a nerve conduct test next month Anxiety disorder F41.9 still stressed but is hanging tough states having difficulty falling asleep and is otherwise doing ok Psoriatic arthritis 1563 53064 L40.50 will be following up with dr santos Tobacco de pendence syndrome 84227104 F17.200 discussion re quitting and pt is actively trying to cut down [id number] Yuli CRISS Claire [facility] [address] [facility] [address],[place] [address] 04/08/2018 14:08:38 04/08/2018 16:47:57 Tobacco dependence syndrome 43120804 F17.200 smokes about 1/2 ppd she wants to quit, struggles with motivation has tried chantix not helfpul - too many adrs has done the patch with temporary relief Anxiety disorder 06 F41.9 usually sees mb has been stable Depressive disorder 3548 9007 F32.9 usually followed by mb has been stable Atypical pneumonia 59789 6009 J18.9 didn't hear any abnormalit ies on lung exam, but with low grade fever, sob, and smoking history would like to cover for pneumonia get cxr if sx worsen [id number] Joselo Mckeon [facility] Internal Medicine [address] [facility] [address] [employer] [facility] [place] [address] 05/24/2018 10:40:36 05/24/2018 11:28:20 Tobacco dependence syndrome 45504069 F17.200 discussion re quitting and pt is actively trying to cut down Anxiety disorder F41.9 still stressed but is hanging tough states having difficulty falling asleep and is otherwise doing ok Depressive disorder 3548 9007 F33.9 at baseline no changes at this time [id number] Joselo Mckeon [facility] Internal Medicine [address] [facility] [address] [place] [address] 07/26/2018 10:43:42 07/26/2018 11:28:24 Anxiety disorder F41.9 still stressed but is hanging tough states having difficulty falling asleep and is otherwise doing ok Depressive disorder 3548 9007 F33.9 at baseline no changes at this time Fibromyalgia 356184720 M 79.7 unable to take savella due to interactio ns with drugs has a nerve conduct test next month Carpal vin ryan syndrome 14696040 G56.01 pt will follow and if she starts losing her muscle tone she will have to get it fixed [id number] Joselo Mckeon [facility] Internal Medicine [address] [facility] [address] [address] 09/13/2018 11:13:30 09/13/2018 12:32:34 Tobacco dependence syndrome 04913112 F17.200 discussion re quitting and pt is actively trying to cut down Psoriatic arthritis 1563 89552 L40.50 will be trying diclofenac gel if allowed by insur [id number] Joselo Mckeon [facility] Internal Medicine [address] [facility], [place] [address] 01/17/2019 13:52:32 01/17/2019 14:53:22 Tobacco dependence syndrome 21040725 F17.200 discussion re quitting and pt is actively trying to cut down Anxiety disorder 06 F41.9 still stressed but is hanging tough states having difficulty falling asleep and is otherwise doing ok will refill valium Depressive disorder 3548 9007 F33.9 at baseline no changes at this time [id number] Joselo Mckeon [facility] Internal Medicine [address] [facility], [place] [address] 04/08/2019 13:24:56 04/08/2019 14:02:56 Depressive disorder 68747674 F33.9 at baseline no changes at this time Anxiety disorder 06 F41.9 still stressed but is hanging tough states having difficulty falling asleep and is otherwise doing ok will refill valium Lumbosacra l radiculitis 10572586 M54.17 recent epidural unhelpful and may have exacerbate d pain as now she is ambulating diff with resultant hip and knee pain Effusion o f joint of right knee 6434336757 15250 M25.461 noted effusion 2' to above will need xrays to start as well as med for pain keterolac Pain of le ft hip joint 9312083128 11160 M25.552 51252 Joselo Mckeon [facility] Internal Medicine [address] [facility],[address]anu [facility] [place] [address] 08/01/2019 13:26:11 08/01/2019 14:11:37 Depressive disorder 67058739 F33.9 at baseline no changes at this time Anxiety disorder 06 F41.9 states that her anxiety is still the same on duloxetine , has been on it for two years still taking valium when having episodes which she states is the only thing that helps Bursitis 50094926 M71.9 stable Nausea 932400136 R11.0 Nonulcer dyspepsia 41228 07 K30 patient states she has been nauseous for the past three weeks pt states it starts after drinking coffee Abdominal pain 72607814 R10.9 [id number] Joselo Mckeon [facility] Internal Medicine [address] [facility],[place] [address] 09/19/2019 10:59:14 09/19/2019 11:41:53 Anxiety disorder 381456435 F41.9 states that her anxiety is still the same on duloxetine , has been on it for two years still taking valium when having episodes which she states is the only thing that helps Depressive disorder 3548 9007 F33.9 at baseline no changes at this time Tobacco de pendence syndrome 83892663 F17.200 discussion re quitting and pt is actively trying to cut down Gastroesop hageal reflux disease 717008838 K21.9 now resolved since off sugar substitute s [id number] Joselo Mckeon [facility] Internal Medicine [address] [facility],[place] [address] 03/12/2020 11:28:30 03/12/2020 12:11:52 Depressive disorder 76121556 F33.9 at baseline no changes at this time Fibromyalgia 909191715 M 79.7 unable to take savella due to interactio ns with drugs has a nerve conduct test next month so is now on the venlafaxin e Irritable bowel syndrome characterized by constipation 895745657 K58.1 Adult heal th examination 359641007 Z00.00 21317 Joselo Mckeon [facility] Internal Medicine [address] [facility] [address] [address] 09/14/2020 11:52:29 09/14/2020 14:34:14 Active or passive immunization 316405943 Z23 had covid she will require the vaccine in the next couple months Adult heal th examination 988478875 Z00.00 reviewed blood work it is excellent except for the vit d she will take supp Nausea 719740673 R11.0 will take for her ability to eat at this time but we will also have her stop the lyrica for a week if negative wewill need to look for a poss gastritis with an UGI xray Anxiety disorder F4.9 states that her anxiety is still the same on duloxetine , has been on it for two years still taking valium when having episodes which she states is the only thing that helps [id number] Joselo Mckeon, [facility] Internal Medicine [address] [facility] [address],[place] [address] 12/24/2020 12:14:14 12/24/2020 12:53:25 Psoriatic arthritis 118304544 L40.50 will be trying diclofenac gel if allowed by insur Tobacco de pendence syndrome 94113024 F17.200 discussion re quitting and pt is actively trying to cut down Anxiety disorder F4.9 states that her anxiety is still the same on duloxetine , has been on it for two years still taking valium when having episodes which she states is the only thing that helps Depressive disorder 3548 9007 F33.9 at baseline no changes at this time Fibromyalgia 276965245 M 79.7 unable to take savella due to interactio ns with drugs has a nerve conduct test next month so is now on the venlafaxin e Chronic bronchitis 15197 004 J42 seems to be better now long discuss re cigg smoke and ivon the use of pred taper [id number] Joselo Mckeon, [facility] Internal Medicine [address] [facility] [address] [employer] [facility] [place] [address] 05/11/2021 08:09:44 05/13/2021 14:00:02 Psoriatic arthritis 441976847 L40.50 will be trying diclofenac gel if allowed by insur Anxiety disorder F41.9 states that her anxiety is still the same on duloxetine , has been on it for two years still taking valium when having episodes which she states is the only thing that helps Effusion o f joint of right knee 6656817087 92949 M25.461 noted effusion 2' to above will need xrays to start as well as med for pain keterolac Lumbosacra l radiculitis 75679434 M54.17 recent epidural unhelpful and may have exacerbate d pain as now she is ambulating diff with resultant hip and knee pain [id number] Joselo Mckeon [facility] Internal Medicine [address] [facility],[place] [address] 10/28/2021 11:57:03 11/01/2021 11:37:39 Tobacco dependence syndrome 65185658 F17.200 discussion re quitting and pt is actively trying to cut down Anxiety disorder F41.9 states that her anxiety is still the same on duloxetine , has been on it for two years still taking valium when having episodes which she states is the only thing that helps Depressive disorder 3548 9007 F33.9 at baseline no changes at this time Chronic bronchitis 31820 004 J42 seems to be better now long discuss re cigg smoke and ivon the use of pred taper Psoriatic arthritis 1563 30104 L40.50 will be trying diclofenac gel if allowed by insur 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 41346257 I83.10 this is not a phlebitis picture this is a local irritation of the skin and not vein inflammwe will treat with clobetasol Inflammati on of sacroiliac joint 82568043 M46.1 [id number] Joselo Mckeon [facility] Internal Medicine [address] [facility],[place] [address] 02/03/2022 10:26:55 02/03/2022 11:20:50 Depressive disorder 34126736 F33.9 at baseline no changes at this time Anxiety disorder F41.9 states that her anxiety is still the same on duloxetine , has been on it for two years still taking valium when having episodes which she states is the only thing that helps Cough 44227764 R05.1 now reoslved Lumbosacra l radiculitis 52624883 M54.17 recent epidural unhelpful and may have exacerbate d pain as now she is ambulating diff with resultant hip and knee paini am wondering if she has had a leg length discrepanc y 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 93728696 I83.10 this is not a phlebitis picture this is a local irritation of the skin and not vein inflammwe will treat with clobetasol [id number] Joselo Mckeon [facility] Internal Medicine [address] [facility],[place] [address] 05/26/2022 11:27:32 05/26/2022 15:20:01 Active or passive immunization 070870713 Z23 had covid she will require the vaccine in the next couple months Adult heal th examination 891816239 Z00.01 reviewed blood work it is excellent except for the vit d she will take supp Postoperat ivan wound infection 36348804 T81.40XA Herniation of lumbar intervertebral disc with sciatica 3315573543 77199 M51.16 has had epidural inj which has been helpful seeing in jun Fibromyalgia 987494356 M 79.7 unable to take savella due to interactio ns with drugsshgino will ask the pharmacist to review the meds for poss interactio ns before she starts the samples given by rheum [id number] MONIK HUYNH [facility] Internal Medicine [address] [facility], [place] [address] 05/30/2022 10:16:19 05/30/2022 11:23:53 Surgical incision wound of skin 0048676203 00 R23.8 stable Postoperat ivan wound infection 16547320 T81.40XA improvedco ntinue on abxcall if change in wound 12062 MONIK HUYNH [facility] Internal Medicine [address] [facility],[place] [address] 07/26/2022 16:12:01 07/27/2022 09:08:37 Sense of smell altered 737281047 R43.1 possible infection Serous otitis media 8032 7007 H65.03 start on dual treatmentw ill do start on medrol Fibromyalgia 442480984 M 79.7 still waiting for a new doctor Acute sinusitis 05673540 J01.01 will set start on abx and steriod combo Fatigue 16088944 R53.83 will work up patient for possible reasons for the blood work Dysmenorrhea 204343422 N 94.6 [id number] Joselo Mckeon DO [facility] Internal Medicine [address] [facility], [place] [address] 08/11/2022 10:56:17 08/11/2022 12:07:36 Inflammation of sacroiliac joint 86690559 M46.1 sacroiliit is Depressive disorder 9881 9007 F33.9 at baseline no changes at this time Chronic bronchitis 72578 004 J42 seems to be better now long discuss re cigg smoke and ivon the use of pred taper Pain of mu ltiple joints 54338719 M25.50 Fibromyalgia 031991317 M 79.7 unable to take savella due to interactio ns with drugsher rheumatolo gist is gone we will see if we can get her into dr miranda office [id number] Joselo Mckeon, [facility] Internal Medicine [address] [facility],[place] [address] 09/15/2022 12:10:49 09/15/2022 14:44:12 Herniation of lumbar intervertebral disc with sciatica 9254641014 65854 M51.16 has had epidural inj which has been helpful seeing in ana Inflammati on of sacroiliac joint 48805395 M46.1 sacroiliit is on going did get better with pre d Chronic constipation 236 798741 K59.09 [id number] MONIK HUYNH [facility] Internal Medicine [address] [facility],[place] [address] 12/26/2022 11:15:05 12/26/2022 16:39:54 Anxiety disorder 261668007 F41.3 discussed moodworkin g on finding correct medication to control her pain level will call for diazepam to switch script Depressive disorder 4791 9007 F33.9 discussed mood Herniation of lumbar intervertebral disc with sciatica 1891355022 77196 M51.16 seeing specialist Fibromyalgia 767514788 M 79.7 new referral sent to CT since she has not had any benefit with her current rheumtizan idine for more beneft for the patient's symptoms also can try amitriptyl ine, clomiprami ne, milnacipra n Inflammati on of sacroiliac joint 02474281 M46.1 sending to alt rheum Acute otitis media 17329 03 H65.01 start z jamie and medrol Varicose v eins of lower extremity 11314536 I83.93 will set up with another surgeon Renewal of prescription 165224903 Z76.0 send in another script [place] use [id number] MONIK HUYNH [facility] Internal Medicine [address] [facility],[place] [address] 02/09/2023 10:27:15 02/09/2023 14:46:01 Anxiety disorder 021353449 F41.3 stable Middle ear effusion 1004 894856 H74.8X1 will start on singulair Irritable bowel syndrome characterized by constipation 790237460 K58.1 stable Varicose v eins of lower extremity 57782986 I83.93 stable [id number] MONIK HUYNH [facility] Internal Medicine [address] [facility],[place] [address] 03/13/2023 08:56:52 03/13/2023 09:48:18 Anxiety disorder 692708343 F41.3 stable Depressive disorder 3548 9007 F33.9 discussed mood Fibromyalgia 961212869 M 79.7 will add 100 mg Allergic rhinitis 381118 04 J30.2 switch to zafirlukas t 20 mg BID and start on budesonide as well since OTC Fall W19.XXXD will set up with XR lumbar spine Candidiasis of skin 4988 3006 B37.2 will set up with powder [id number] MONIK HUYNH [facility] Internal Medicine [address] [facility],[place] [address] 04/17/2023 09:22:01 04/17/2023 12:12:25 Acute otitis media 8445720 H65.01 given an ear drop and have her do normal saline nasal spray Closed fra cture of fifth metatarsal bone 63456345 S92.352A agueda tapedkeep nail on top of the nail bed and let fall off by itself Candidiasis of skin 4988 3006 B37.2 change to combo cream [id number] MONIK HUYNH [facility] Internal Medicine [address] [facility],[place] [address] 05/22/2023 10:22:41 05/22/2023 11:07:40 Pain of ear 776012721 H92.03 stablewill monitor Candidiasis of skin 4988 3006 B37.2 stable [id number] Joselo Mckeon DO [facility] Internal Medicine [address] [facility] [place] [address] 08/01/2023 07:48:40 08/01/2023 10:20:04 Cervical myelopathy 016342412 G95.9 [id number] MONIK HUYNH [facility] Internal Medicine [address] [facility], ite D [facility] [place] [address] 08/14/2023 13:27:54 08/14/2023 14:31:04 Liver enzymes level above reference range 419391165 R74.01 will recheck levels, with additional lab work as well and imaging of the biliary system Constipation 18925574 K5 9.09 will also check parathyroi d levels Dysuria 40758179 R30.0 will set up with urinalysis [id number] MONIK HUYNH [facility] [address] [facility], ite Zane [facility] [place] [address] 09/18/2023 10:27:28 09/18/2023 11:10:19 Anxiety disorder 780882938 F41.3 stable Umbilical hernia 6646852 07 K42.9 will monitor Spasm of back muscles 20 3774544 M62.830 will trial alt msk relaxer Acne 76578977 L70.8 suggested acne wash and contined as needed topical powder Candidiasis of skin 4988 3006 B37.2 stable Pain of ear 431930454 H9 2.03 stablewill monitor [id number] MONIK HUYNH [facility] Internal Medicine [address] [facility], ite Zane [facility] [place] [address] 11/27/2023 10:53:05 11/27/2023 12:10:46 Depression screening 187720417 Z13.31 0 Acute otitis media 62566 03 H65.01 given an ear drop and have her do normal saline nasal spray Chronic sinusitis 936008 00 J32.8 agreed to f/u with kiln burner helper, could be an allergic reaction given the consistenc y of her issues Cervical radiculopathy 90580103 M54.12 still has to finish her PT before MRI will be approved [id number] MONIK HUYNH [facility] Internal Medicine [address] [facility], ite Zane [facility] [place] [address] 12/25/2023 10:27:07 12/25/2023 15:01:12 Depression screening 237654689 Z13.31 0 Acute otitis media 18911 03 H65.01 add anti-funga l toward Allergic rhinitis 900030 04 J30.2 switch to zafirlukas t 20 mg BID and start on budesonide as well since OTC Cervical radiculopathy 12490787 M54.12 still has to finish her PT before MRI will be approved Herniation of lumbar intervertebral disc with sciatica 9632922252 65786 M51.16 switch the diclofenac BID PRN Spasm of back muscles 20 3913381 M62.830 adjust dose up to 1000 mg QID PRN Chronic sinusitis 976229 00 J32.8 will set up with XR's Pain in fi nger of right hand 2342656897 32553 M79.644 will set up with Dysuria 97358432 R30.0 will set up with urinalysis [id number] MONIK HUYNH [facility] [address] [facility],[place] [address] 01/15/2024 09:46:45 01/15/2024 12:12:40 Closed fracture of distal phalanx of ring finger of right hand 7393501473 6852130 S62.634G f/u XR [id number] MONIK HUYNH [facility] Internal Medicine [address] [place] [address] 01/29/2024 09:30:08 01/29/2024 10:11:21 Acute sinusitis 16868017 J01.01 will set start on abx and steriod combostero id should Closed fra cture of distal phalanx of ring finger of right hand 4375031641 1990427 S62.634G f/u XR to check for resolution of XR [id number] MONIK HUYNH [facility] Medicine [address] [facility],[place] [address] 04/01/2024 10:28:36 04/01/2024 14:35:34 Degeneration of lumbar intervertebral disc 49129891 M51.369 will set up with second opinion Onychomycosis 434390510 B35.1 start on [id number] MONIK HUYNH [facility] Internal Medicine [address] [facility], [place] [address] 04/29/2024 14:10:31 04/29/2024 14:53:04 Degeneration of lumbar intervertebral disc 32982557 M51.369 had trigger point injections working with the doctor for a new facet injection Spasm of back muscles 20 6132460 M62.830 adjust dose up to 1000 mg QID PRN [id number] MONIK HUYNH [facility] Medicine [address] [facility],[place] [address] 06/10/2024 11:10:52 06/10/2024 12:03:07 Gastroesophageal reflux disease 188801937 K21.00 related to a side effect to a medwill start on combo therapy Low back pain 553650198 M54.51 will trial amitriptyl ine and the lidocaine Herniation of lumbar intervertebral disc with sciatica 9220863397 09883 M51.16 switch the diclofenac BID PRN [id number] MONIK HUYNH [facility] Medicine [address] [facility], ite [facility] [address] 07/08/2024 10:22:36 07/08/2024 11:13:10 Gastroesophageal reflux disease 811574833 K21.00 doing much better on the pantoprazo le Low back pain 920382955 M54.51 will trial amitriptyl ine and the lidocaine, hasn't started it yet, wanted to stagger the new meds Herniation of lumbar intervertebral disc with sciatica 5192706092 04488 M51.16 has a second opinion with Dr. Lewis Paralysis due to lesion of spinal cord 281123361 G95.9 stable, no major changes Bilateral foot drop 1563 319937 2130340 M21.371 has second opinion with Dr. Lewis Acute sinusitis 41187742 J01.01 will set start on abx and steriod combostero id should Dysuria 93030264 R30.0 will set up with urinalysis Pain of le ft knee joint 7979927098 46733 M25.562 knee brace and ice prnwill monitor [id number] MONIK HUYNH [facility] Medicine [address] [facility], ite [facility] [address] 07/30/2024 09:09:15 07/30/2024 10:40:32 Asthma 564787868 J45.21 will set up with a nebulizer Influenza caused by Influenza A virus 481209549 J09.X2 will set up wtih pred and cough suppressan t Fibromyalgia 936571467 M 79.7 refill Acute bronchitis 3842185 2 J20.4 repeat CXR given worsened symptoms [id number] MONIK HUYNH [facility] [address] [facility], it[place] [place] [address] 08/05/2024 10:41:34 08/05/2024 12:08:19 Influenza caused by Influenza A virus 281613926 J09.X2 will set up wtih pred and cough suppressan t Dyspnea 484486327 R06.[address] up [address] chest since now has two negative XRs and her symptoms are worsening Lumbosacra l radiculitis 81426348 M54.17 will take over script from her pathology transcriptionist since she hasn't responded to her refill requests Tobacco de pendence syndrome 09977571 F17.290 will start on nicotine 21 mg [id number] MONIK HUYNH [facility] [address] [facility],[place] [address] 08/13/2024 11:39:37 08/13/2024 14:46:18 Pulmonary embolism 28453364 I26.99 will fu next week Degenerati on of lumbar intervertebral disc 14415199 M51.369 okay right now, tramadol helps for a bit to take the edge off and she uses APAP otherwises o stable currently [id number] MONIK HUYNH [facility] [address] [facility] [address],[place] [address] 08/19/2024 09:58:16 08/19/2024 10:44:16 Acute pulmonary embolism 036916754 I26.99 send in US echo Cor pulmonale 97778089 I 27.23 recheck US echo Dyspnea 916409081 R06.03 recheck CTA 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 start with lab work Migraine 46765523 G43.90 9 refill Folliculitis 94931937 L7 3.9 will set up with cream Pruritic rash 95751378 L 28.2 will set up wtih PRN prednisone [id number] MONIK HUYNH [facility] [address] [facility] [address] [address] 09/02/2024 14:12:25 09/02/2024 15:03:48 Fibromyalgia 405546153 M79.7 refill needed, works the best for her Low back pain 602977827 M54.51 can cont until she is off the tramadol Acute pulm onary embolism 405007301 I26.99 has her imaging tomorrow [id number] MONIK HUYNH [facility] [address] [facility] [address],[place] [address] 10/07/2024 09:27:49 10/07/2024 10:02:16 Renewal of prescription 791823507 Z76.0 send in another script can cont use Depression screening 171 198620 Z13.31 0 Fatigue 27944280 R53.82 will work up patient for possible reasons for the blood work Dyspnea 989191004 R06.02 agreed to PFT Bursitis 32521353 M71.[address] Lewis Lumbosacra l radiculitis 39345993 M54.[address] Lewis Screening for malignant neoplasm of colon 369142652 Z12.11 recommende d colonoscop y Health Concerns Section Related Observation LastModified by Organization Detai ls LastModified Time None Recorded Concern Status LastModified by Organization Details LastModified Time None Recorded Advance Directives Directive None Recorded Payers Encounter Date Sequence Insurance Name Policy Number Policy Powell Covered Member ID Powell Member ID Guarantor Name 08/05/2024 1 [place] [id number] 2 [employer] Stone [id number] 04 Mariaa L Stone 08/13/2024 1 [place] [id number] 2 [employer] Howard [id number] Mariaa L Stone 08/19/2024 1 [place] [id number] 2 [employer] [id number] Mariaa L Stone 09/02/2024 1 [place] [id number] 2 [employer] [id number] Mariaa Howard 10/07/2024 1 [place] [id number] 2 [employer] [id number] Mariaa Howard Notes Date Note Type Note Provider Name and Address Organization Details Recorded Time 5 text/htm l 1 mos f/u the patient is doing [...] agrees to this planrecommended starting on 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 symptoms needs to fill gabapentin for her specialist who hasn't responded to refill requests MONIK HUYNH [address] [place] [address], [place], [place], [address], [facility] 08/05/2024 11:16:23 5 text/htm l c/o sob after PE The patient is participating in this appointment via telemedicine communication with a phone call/video calling service ([employer])The patient consents to use of these platforms [...] symptoms at this time MONIK HUYNH [address] [facility], [place], [address], [facility] 08/13/2024 14:42:07 5 text/htm l hospital d/c: patient has flu A about [...] for rash under breasts MONIK HUYNH [address] [facility], [place], [address], [facility] 08/19/2024 10:43:01 5 text/htm l 1 mos f/u the patient has her repeat imaging tests scheduled for tomorrow, both the repeat CTA and US echo to check on clot and to the patient reports that she is slowly improving, breathing is much better than her last appt still having some lung pain vitals look good today, improved from last visit her coag labs were all normal, no suggestion of a clotting disorder the patient is otherwise doing okaywill fu after the imaging MONIK HUYNH [address] [place], [address], [facility] 09/02/2024 14:49:26 5 text/htm l f/u 1 mos chronic fatigue: patient still very tired, having sob still (not as bad) more mild than with her PE, CTA recently showed resolution of PE, can stop eliquisrecommended PFT for f/ualso would like to recheck her levels after she has finished the eliquis and back to baseline back pain: seeing Dr. Lewis, getting injections currentlyrecommended pred for some time, safest for pthaving GERD symptoms more, don't want her going back on diclofenac until this is cleared due for colonoscopy, recommended add of the endoscope given GERD symptomsstill having a lot of bloating and abdominal pain recheck inflammatory markersr/o anemia for the ongoing sob and if there is residual damage to her lungs echo was normal MONIK HUYNH [address] [place], [place], [address], [facility] 10/07/2024 10:02:12 OBGyn Episode No OBEpisode recorded.
--- OUTSIDE RECORDS SUMMARY | 2024-10-07 11:28 | XMS_ITS | Continuity of Care Document ---
Author Organization [place] [facility], [facility] Address [address] [facility] [address] [place] [address] Assessment Encounter Date Assessment Date Assessment LastModified by Organization Details LastModified Time 10/07/2024 10/07/2024 Patient presented for medication refill. [...] yte sedimenta tion rate), blood 2024 025 [facility], [address] [place] [address], [address], 10/07/2024 09:55:23 C-reactiv e protein, quantitat ivan, serum or plasma 2024 025 [facility], [facility], [place], [address], 10/07/2024 09:55:23 iron + TIBC + ferritin, serum 2024 025 [facility], [address] [place], [address], 10/07/2024 09:55:23 vitamin D, 25-hydrox y, total, serum 2024 025 [facility], [address] [place] [address], [address], 10/07/2024 09:55:23 vitamin B12 + folate, serum or blood 2024 025 [facility], [address] [place] [address], [address], 10/07/2024 09:55:23 TSH + free T4, serum 2024 025 [facility], [address] [place] [address], [address], 10/07/2024 09:55:23 CBC w/ auto diff 2024 025 [facility], [address] [place] [address], [address], 10/07/2024 09:55:23 CMP, serum or plasma 2024 025 [facility], [address] [place] [address], [address], 10/07/2024 09:55:23 hemoglobi n A1c, QN, blood 2024 025 [facility], [address] [place] [address], [address], 10/07/2024 09:55:23 Referral gastroent erologist referral 2024 025 [facility], [address] [place], [address], 10/07/2024 10:38:56 Procedures None recorded. Surgeries None recorded. Imaging PFT, complete 2024 025 [facility], [address] [place], [address], 10/07/2024 09:51:16 Medication Orders prednison e 10 mg tablet 2024 025 CALISTA Murillo [address] ([facility] 827), [address], [place], [id number], 10/07/2024 09:49:35 Patient TargetsNo targets recorded. Patient InstructionsNo instructions recorded. Reason for Referral Diploma Medical Assistant Referral for Screening for malignant neoplasm of colon needs screening colonoscopy (bloating, abdominal pain, increased GERD) and endoscope Referring Physician: Yumiko Cortez, Internal Medicine, Encounter Date: 10/07/2024 Problems Name Problem SNOMED Code Status Onset Date Resolution Date Notes Provider Name and Address Organization Details Recorded Time Tobacco dependen ce syndrome 07455975 Active 2017 Joselo Mckeon DO [address] [place] [address], [address], [facility] 8 11:41:05 Carpal tunnel syndrome 07297157 Active 2018 Joselo Mckeon DO [address] [place] [address], [address], [facility] 9 11:21:46 Lumbosac ral radiculi tis 52197220 Active 2018 Joselo Mckeon DO [address] [place] [address], [address], [facility] 9 13:39:48 Effusion of joint of right knee 1648917367 54283 Active 2018 Joselo Mckeon DO [address] [place] [address], [address], 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 2 12:32:14 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 Active 2021 Joselo Mckeon, DO [address] [place] [address], [address], [facility] 2 12:33:25 Inflamma tion of sacroili ac joint 74552912 Active 2021 Joselo Mckeon, DO [address] [place] [address], [address], [facility] 2 12:39:14 Cough 75421778 Active 2021 MONIK HUYNH [address] [place] [address], [address], [facility] 2 15:19:41 Pneumoni tis 947283615 Active 2021 Joselo Mckeon DO [address] [place] [address], [address], 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 2 12:21:16 Surgical incision wound of skin 9016774833 00 Active 2021 MONIK HUYNH [address] [place] [address], [address], [facility] 2 10:38:41 Sense of smell altered 995208542 Active 2022 MONIK HUYNH [address] [place] [address], [address], [facility] 3 16:54:35 Serous otitis media 37551001 Active 2022 MONIK HUYNH [address] [place], [address], [facility] 3 16:54:55 Fatigue 11083417 Active 2022 MONIK HUYNH [address] [place], [address], [facility] 5 09:40:10 Dysmenor carlo 557083129 Active 2022 MONIK HUYNH [address] [place] [address], [address], [facility] 3 17:04:09 Pain of multiple joints 35278923 Active 2022 Joselo Mckeon DO [address] [place] [address], [address], [facility] 3 11:53:02 Chronic constipa tion 601897118 Active 2022 Joselo Mckeon DO [address] [place] [address], [address], [facility] 3 12:36:43 Varicose veins of lower extremit y 17894332 Active 2022 MONIK HUYNH [address] [place] [address], [address], [facility] 3 11:52:45 Middle ear effusion 7241304793 Active 2022 MONIK HUYNH [address] [place], [address], [facility] 3 10:45:26 Irritabl e bowel syndrome characte rized by constipa tion 610451418 Active 2022 OMNIK HUYNH [address] [place] [address], [address], [facility] 3 10:49:50 Varicose veins of lower extremit y 22378896 Active 2022 MONIK HUYNH [address] [place], [address], [facility] 3 10:49:57 Allergic rhinitis 38250331 Active 2022 MONIK HUYNH [address] [place], [address], [facility] 3 09:11:56 Candidia sis of skin 80184113 Active 2022 MONIK HUYNH [address] [place], [address], [facility] 3 09:17:19 Pain of ear 617014626 Active 2022 MONIK HUYNH [address] [place], [address], [facility] 3 10:45:53 Sprain of right ankle 2947098453 5096988 Active 2023 MONIK HUYNH [address] [place], [address], [facility] 4 14:39:22 Cervical myelopat hy 743730354 Active 2023 Joselo Mckeon, DO [address] [place], [address], [facility] 4 09:34:41 Liver enzymes level above referenc e range 769364993 Active 2023 MONIK HUYNH [address] [place], [address], [facility] 4 13:38:49 Constipa tion 95028990 Active 2023 MONIK HUYNH [address] [place], [address], [facility] 4 13:39:54 Dysuria 54613855 Active 2023 MONIK HUYNH [address] [place], [address], [facility] 4 13:48:18 Umbilica l hernia 901589347 Active 2023 MONIK HUYNH [address] [place], [address], [facility] 4 10:43:27 Spasm of back muscles 619403448 Active 2023 MONIK HUYNH [address] [place], [address], [facility] 4 10:49:31 Acne 37764249 Active 2023 MONIK HUYNH [address] [place], [address], [facility] 4 10:52:50 Acute otitis media 4699194 Active 2023 MONIK HUYNH [address] [place] [address], [address], [facility] 4 11:21:42 Chronic sinusiti s 45419346 Active 2023 MONIK HUYNH [address] [place] [address], [address], [facility] 4 11:23:40 Cervical radiculo ivanna 62135837 Active 2023 MONIK HUYNH [address] [place] [address], [address], [facility] 4 11:25:59 Pain in finger of right hand 8826052984 89835 Active 2023 MONIK HUYNH [address] [place] [address], [address], [facility] 4 10:55:31 Closed fracture of distal phalanx of ring finger of right hand 9611736070 9226233 Active 2023 MONIK HUYNH [address] [place] [address], [address], [facility] 4 09:58:17 Acute sinusiti s 28093189 Active 2023 MONIK HUYNH [address] [place], [address], [facility] 4 09:42:52 Degenera tion of lumbar interver tebral disc 44472427 Active 2023 MONIK HUYNH [address] [place], [address], [facility] 4 11:12:53 Onychomy cosis 404283384 Active 2023 MONIK HUYNH [address] [place], [address], [facility] 4 11:19:35 Gastroes ophageal reflux disease 784579514 Active 2023 MONIK HUYNH [address] [place], [address], [facility] 4 11:45:29 Low back pain 728353486 Active 2023 MONIK HUYNH [address] [place], [address], [facility] 4 11:52:36 Pain of left knee joint 2994113417 75476 Active 2024 Joselo Mckeon DO [address] [place], [address], 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 5 10:52:38 Bilatera l foot drop 6408070940 6994157 Active 2024 MONIK HUYNH [address] [place], [address], [facility] 5 10:52:38 Asthma 289429626 Active 2024 MONIK HUYNH [address] [place], [address], [facility] 5 10:14:35 Influenz a caused by Influenz a A virus 976061093 Active 2024 MONIK HUYNH [address] [place], [address], [facility] 5 10:17:23 Acute bronchit is 94134551 Active 2024 MONIK HUYNH [address] [place], [address], [facility] 5 10:20:18 Dyspnea 074057523 Active 2024 MONIK HUYNH [address] [place], [address], [facility] 5 09:41:19 Pulmonar y embolism 13395659 Active 2024 MONIK HUYNH [address] [place], [address], [facility] 5 14:32:01 Acute pulmonar y embolism 759415186 Active 2024 MONIK HUYNH [address] [place], [address], [facility] 5 08:42:40 Cor pulmonal e 29001257 Active 2024 MONIK HUYNH [address] [place], [address], [facility] 5 08:43:00 Blood coagulat ion disorder 54849947 Active 2024 MONIK HUYNH [address] [place], [address], [facility] 5 08:43:39 Migraine 25183532 Active 2024 MONIK HUYNH [address] [place] [address], [address], [facility] 5 10:22:38 Pruritic rash 79191606 Active 2024 MONIK HUYNH [address] [place], [address], [facility] 5 10:37:36 Follicul itis 35560364 Active 2024 MONIK HUYNH [address] [place] [address], [address], [facility] 5 10:39:39 Substan e abuse 25408919 Completed 201702/08/2018 narcotic Joselo Mckeon DO [address] [place] [address], [address], [facility] 8 11:40:11 Fibromya lgia 547183969 [facility] 08:24:16 Bursitis 70021482 Active 2017 R hip, trochant ollie M70.61 [facility] 8 08:24:54 Herpes simplex 32919998 Active 2017 genital [facility] 8 08:25:25 Psoriati c arthriti s 539476970 Active 2017 [facility] 8 08:25:42 Depressi ve disorder 55664591 Active 2017 Joselo Mckeon DO [address] [place] [address], [address], [facility] 8 11:47:42 Anxiety disorder 323581694 Active 2017 Joselo Mckeon DO [address] [place] [address], [address], [facility] 8 11:47:54 Problem Notes None recorded. Procedures Surgical History Date Name Laterality Status Provider Name and Address Organization Details Recorded Time 11/13/2018 Date of Last Pap Smear completed Darlene Costa [facility] 01/17/2019 14:01:49 Imaging Results None recorded. Procedure Notes None recorded. Medical Equipment None Reported. Allergies Allergen ID Allergen Name Allergen Category Reaction Reaction Severity Criticality Documentation Date Start Date Code Code System Note Provider Name and Address Organization Details Recorded Time 1450 Product containin g penicilli n (product) medicatio n Not available Not available Not available 11/02/2017 89109 8001 SNOMED Blanka Igel efrem, [facility] 8 08:22:53 7229 Sudafed medicatio n Not available Not available Not available 02/09/2023 2 RxNorm MONIK HUYNH [address] [place], [address] 3 10:47:51 Medications Name Sig Start [...] Available Not Available Not Available Flucelvax Quad 5939-6333 (PF) 60 mcg (15 mcg x 4)/0.5 [...] Updated DateTime 5 167.64 cm 31.7 kg/m2 98114.8 2 g 85 /min 97 % 97 % 136 mm[Hg] 82 mm[Hg] [facility] 5 09:36:36 Social History Question Answer Notes LastModified by Organizat ion Details LastModified Time Tobacco Smoking Status Current Every Day Smoker Not Available [facility] 04/13/2020 03:36:23 What Was The Date Of [...] 50 mcg/0.25mL dose 1 completed Jael topete [facility] 12/15/2020 08:36:36 COVID-19, mRNA, LNP-S, PF, 100 mcg/0.5mL dose or 50 mcg/0.25mL dose 1 completed Jael topete [facility] 12/15/2020 08:36:42 COVID-19, mRNA, LNP-S, PF, 100 mcg/0.5mL dose or 50 mcg/0.25mL dose 2 completed Darlene topete [facility] 10/28/2021 11:57:24 influenza, unspecified formulation 6 completed Ramona topete [facility] 07/26/2022 08:29:44 influenza, unspecified formulation 0 completed Ramona topete [facility] 07/26/2022 08:29:51 Tdap 0 completed Joselo Mckeon DO [address] [place] [address], [address], [facility] 09/14/2020 11:58:44 Past Encounters Encounter ID Performer Location Encounter Start Date Encounter Closed Date Diagnosis/Indication Diagnosis SNOMED-CT Code Diagnosis ICD10 Code Diagnosis Note [id number] MONIK HUYNH [facility] [address] [facility] [address] 10/07/2024 09:27:49 10/07/2024 10:02:16 Renewal of prescription 379963598 Z76.0 send in another script can cont use Depression screening 171 569923 Z13.31 0 Fatigue 03988821 R53.82 will work up patient for possible reasons for the blood work Dyspnea 738731766 R06.02 agreed to PFT Bursitis 68004764 M71.[address] Lewis Lumbosacra l radiculitis 56069299 M54.[address] Lewis Screening for malignant neoplasm of colon 684298998 Z12.11 recommende d colonoscop y Health Concerns Section Related Observation LastModified by Organization Detai ls LastModified Time None Recorded Concern Status LastModified by Organization Details LastModified Time None Recorded Payers Encounter Date Sequence Insurance Name Policy Number Policy Powell Covered Member ID Powell Member ID Guarantor Name 10/07/2024 1 [facility]: ADVANTAGE BLUE (EPO) [id number] [employer] Howard [id number] Mariaa Howard Notes Date Note Type Note Provider Name and Address Organization Details Recorded Time 5 text/htm l f/u 1 mos chronic [...] lungs echo was normal MONIK HUYNH [address] [facility], [place], [address], [place] [facility] 10/07/2024 10:02:12 OBGyn Episode No OBEpisode recorded.
--- OUTSIDE RECORDS SUMMARY | 2024-10-07 11:28 | XMS_ITS | Clinical Summary ---
Author Organization [facility] Address [address] [place] [address] Care Team Providers Care Move Coordinator Name Role Phone Joselo Mckeon Primary Care Provider [phone] Allergies Active Allergy Reactions Criticality Noted Date [...] affected nail 8 mL 2 12/08/2015 Active G-Rtoyadctqfdg-L9-B 12 3-35-2 MG TABS Take 1 tablet [...] age to complete this topic Care Teams Move Coordinator Relationship Specialty Start Date End Date Joselo Mckeon DO [address] [place] [address] [place] [id number] PCP - General Unknown Physician Specialty 12/08/15
[2024-10-07 13:12] LABS: MANUAL DIFF FLAG NO
[2024-10-07 13:32] LABS: Basophils Percent Auto 0.2 % (0-2); Eosinophils Absolute Auto 0.1 X10*3/uL (0.0-0.4); Eosinophils Percent Auto 0.7 % (0-4); Hematocrit 41.5 % (37.0-47.0); Hemoglobin 13.4 g/dl (12.0-16.0); Imm Gran Abs Auto 0.07 X10*3/uL (0.00-0.03); Imm Gran Pct Auto 0.8 % (0.0-0.4); Lymphocytes Absolute Auto 2.5 X10*3/uL (1.2-4.9); Lymphocytes Percent Auto 30.4 % (20-40); Mean Corpuscular HGB Conc 32.3 g/dl (31.0-35.0); Mean Corpuscular Hemoglobin 30.9 pg (27.0-33.0); Mean Corpuscular Volume 95.8 fL (80.0-98.0); Mean Platelet Volume 10.8 fL (9.4-12.3); Monocytes Absolute Auto 0.7 X10*3/uL (0.1-1.2); Monocytes Percent Auto 7.8 % (2-11); Neutrophils Percent Auto 60.1 % (45-73); Platelet Count 191 X10*3/uL (160-400); Red Blood Count 4.33 X10*6/uL (4.20-5.50); Red Cell Distribution Width 13.8 % (11.0-16.0); White Blood Count 8.3 X10*3/uL (4.8-10.8)
[2024-10-07 13:41] LABS: Estimated Average Glucose 111 mg/dL; Hemoglobin A1C 129.9842 umol/L; Hemoglobin A1c % 5.5 % (<6.0); Total Hemoglobin (HGBA1C) 3538.9357 umol/L
[2024-10-07 13:59] LABS: Alanine Aminotransferase 21 U/L (0-31); Albumin Level 4.1 g/dL (3.5-5.0); Alkaline Phosphatase 56 U/L (39-117); Anion Gap 12 (12-20); Aspartate Amino Transferase 22 U/L (5-31); Bilirubin Total 0.3 mg/dL (0.0-1.0); Blood Urea Nitrogen 15 mg/dL (9-16); C Reactive Protein 0.31 mg/dL (< or = 0.50); Calcium 8.8 mg/dL (8.4-10.2); Carbon Dioxide 29 mmol/L (22-29); Chloride 104 mmol/L (96-108); Estimated Glomerular Filt Rate > 60; Ferritin 43 ng/mL (10-250); Free T4 (Free Thyroxine) 0.88 ng/dL (0.71-1.85); Glucose Random 93 mg/dL (60-115); Iron 103 mcg/dL (30-160); Percent Iron Saturation 37 % (15-50); Potassium 3.9 mmol/L (3.3-5.1); Sodium 141 mmol/L (135-145); Thyroid Stimulating Hormone 0.64 uIU/mL (0.32-4.0); Total Iron Binding Capacity 280 mcg/dL (228-428); Total Protein 6.4 g/dL (6.5-8.0); Unsaturated Iron Binding 177 ug/dL; Vitamin D 25-OH Total 29.5 ng/mL (>30)
[2024-10-07 14:04] LABS: Folate 6.4 ng/mL (> or = 4.0); Vitamin B12 256 pg/mL (200-900)
[2024-10-07 14:11] LABS: Erythrocyte Sedimentation Rate 2 MM/HR (0-20)
== END 2024-10-07 10:06 | disposition home or self-care (01) ==
LOC: HO.MANLDS 10:05
PROVIDERS: Visit Provider Physician Assistant
DX: Z13.1 Encounter for screening for diabetes mellitus (principal); M54.17 Radiculopathy, lumbosacral region; R53.82 Chronic fatigue, unspecified
CPT/HCPCS: 36415; 80053; 82306; 82607; 82728; 82746; 83036; 83540; 84439; 84443; 85025; 85652; 86140

== ENCOUNTER 2024-12-24 16:35 | Outpatient (REF) | payer BC, SELFPAY ==
--- OUTSIDE RECORDS SUMMARY | 2024-12-04 10:45 | XMS_ITS | Continuity of Care Document ---
Author Organization [facility] Address [address] [place] [address] Phone Care Team Providers Care Quarter Inspector Name Role Phone Rajesh PENNINGTON, RVT, RPREBECA, Ronald Unavailable U navailable Allergies, Adverse Reactions, Alerts Substance Reaction Status Criticality PENICILLIN Active No Information Procedures Procedure Date Duplex Scan-extrem Veins; Uni/ [place] & [place] J Office/Outpt E&M Established 10 Mins- CT & [place] Office/Outpt E&M Established 15 Mins- CT & [place] Duplex Scan-extrem Veins; Comp- CT & [place] Duplex Scan-extrem Veins; Uni/ [place] & [place] O ct Ultrason Guidan Needle Bx-rad- CT & [place] O Inj Sclerosing Solution; Sngl- CT & [place] O ct Duplex Scan-extrem Veins; Uni/ [place] & [place] O ct Endovenous Laser, 1st Vein- CT & [place] Duplex Scan-extrem Veins; Uni/ [place] & [place] O ct Inj Scleros Solut; Mx Veins 1- CT & [place] O ct Office/Outpt E&M Established 25 Mins- CT & [place] Duplex Scan-extrem Veins; Comp- [place] & [place] Duplex Scan-extrem Veins; Comp Office/Oupt E&M New Pt 45 Mins Advance Directives Directive Yes / No Effective Date File Name No Information Encounters Encounter Description Practice Location Reason(s) For Visit Diagnoses Date Provider Providers Copied on Encounter [facility] MD BAKER, [address] [place] [address] Dr Brand [address], [id number], tel:[phone] [facility] [place] Pain in right leg 5 Rajesh PENNINGTON RVT, MICHAEL Cardenas. [address] [place] [address], [place], [place], [id number] , [place]. [phone] Referring Provider: Yumiko Schultz, [address], [facility], [place], [address]. tel:[phone] Office/Outpt E&M Established 10 Mins- [place] & [place] [facility], [address] [place] [address] Dr Brand [address], [place], [id number], [place] tel:[phone] [facility] [place] Varicose veins of right lower extremity with pain 5 Rajesh PENNINGTON RVT, MICHAEL Cardenas. [address] [place] [address], [place], [place], [id number] , [place]. tel:[phone] Referring Provider: Yumiko Schultz, [address], [address], [place], [address]. tel:[phone] Office/Outpt E&M Established 15 Mins- [place] & [place] [facility], [address] [place] [address] Dr Brand [address], [id number], [place] tel:[phone] [facility] [place] Varicose veins of bilateral lower extremities with other complications 4 Rajesh PENNINGTON RVT, MICHAEL Cardenas. [address] [place] [address], [place], [place], [id number] , [place]. tel:[phone] Referring Provider: Yumiko Schultz, [address], [address], [place], [address]. tel:[phone] [facility] MD BAKER, [address] [place] [address] Dr Brand [address], [id number], [place] tel:[phone] [facility] Chronic venous hypertension (idiopathic) with other complications of bilateral lower extremity Dec-0 4 Rajesh PENNINGTON RVT, MICHEAL Cardenas. [address] [facility], [place] [address], [place], [place], [id number] , [place]. [phone] Referring Provider: Yumiko Schultz, [address] [place] [address], [address], [place], [address]. tel:[phone] [facility] MD BAKER, [address] [place] [address] Dr Brand 1000Suite [place], [id number], [place] tel:[phone] [facility] - [facility] Encounter for follow-up examination after completed treatment for conditions other than malignant neoplasmPain in left lower leg Mar- 4 Rajesh PENNINGTON RVT, MICHAEL Cardenas. [address] [facility], [place] [address], [place], [place], [id number] , [place]. [phone] Referring Provider: Yumiko Schultz, [address] [place] [address], [address], [place], [address]. tel:[phone] [facility] MD BAKER, [address] [place] [address] Dr Brand 1000[address], [id number], [place] tel:[phone] [facility] Varicose veins of left lower extremity with other complications Mar- 4 Natalie Hewitt . [address] [facility], [place] [address], [facility], [place], [id number] , [place]. tel:[phone] Referring Provider: Yumiko Schultz, [address] [place] [address], [address], [place], [address]. tel:[phone] [facility] MD BAKER, [address] [place] [address] Dr Brand [address], [id number], [place] tel:[phone] [facility] - [facility] Encounter for follow-up examination after completed treatment for conditions other than malignant neVaricose veins of left lower extremity with other complications 4 Rajesh PENNINGTON RVT, MICHAEL Cardenas. [address] [facility], [address], [facility], [place], [id number] , [place]. [phone] Referring Provider: Yumiko Schultz, [address] [place] [address], [address], [place], [address]. tel:[phone] [facility], [address] [place] [address] [address], [place], [id number], [place] tel:[phone] [facility] - [facility] Varicose veins of left lower extremity with other complications 4 Rajesh PENNINGTON RVT, MICHAEL Cardenas. [address] [facility], [address], [place], [place], [id number] , [place]. [phone] Referring Provider: Yumiko Schultz, [address] [place] [address], [address], [place], [address]. tel:[phone] [facility], [address] [place] [address] [address], [id number], [place] tel:[phone] CVR [facility] Chronic venous hypertension (idiopathic) with other complications of right lower extremityEncoun ter for follow-up examination after completed treatment for conditions other than malignant neoplasm 4 Rajesh PENNINGTON RVT, MICHAEL Cardenas. [address] [facility], [address], [facility], [place], [id number] , [place]. [phone] Referring Provider: Yumiko Schultz, [address] [place] [address], [address], [place], [address]. tel:[phone] [facility], [address] [place] [address] [address], [id number], [place] tel:[phone] [facility] - [facility] No Information 4 Rajesh PENNINGTON RVT, MICHAEL Cardenas. [address] [place] [address] Suite [facility], [place], [place], [id number] , [place]. tel:[phone] [facility], [address] [place] [address] [address], [id number], [place] tel:[phone] [facility] - [facility] Venous insufficiency (chronic) (peripheral) 4 Rajesh PENNINGTON RVT, MICHAEL Cardenas. [address] [place] [address] [address], [place], [place], [id number] , [place]. tel:[phone] Referring Provider: Yumiko Schultz, [address] [place] [address], [facility], [place], [address]. tel:[phone] Office/Outpt E&M Established 25 Mins- CT & [place] [facility], [address] [place] [address] [address], [id number], [place] tel:[phone] [facility] - [facility] Varicose veins of bilateral lower extremities with other complicationsLo calized edemaCramp and spasm 4 Rajesh PENNINGTON RVT, MICHAEL Cardenas. [address] [place] [address], [place], [place], [id number] , [place]. tel:[phone] Referring Provider: Yumiko Schultz, [address] [place] [address], [address], [place], [address]. tel:[phone] [facility], [address] [place] [address] [address], [place], [id number], [place] tel:[phone] [facility] - [facility] Chronic venous hypertension (idiopathic) with other complications of bilateral lower extremity 4 Rajesh PENNINGTON RVT, MICHAEL Cardenas. [address] [place] [address], [address], [place], [place], [id number] , [place]. tel:[phone] Referring Provider: Yumiko Schultz, [address] [place] [address], [address], [place], [address]. tel:[phone] [facility], [address] [place] [address] [address], [place], [id number], [place] tel:[phone] [facility] [place] Pain in right legPain in left leg 3 Frandy PENNINGTON FACS T MICHAEL Olson. [address] [address], [place], [address], [place]. tel:[phone] Referring Provider: Yumiko Schultz, [address], [address], [place], [address]. tel:[phone] Office/Oupt E&M New Pt 45 Mins [facility], [address] [place] [address] Dr Brand [address], [place], [id number], [place] tel:[phone] [facility] [place] Varicose veins of bi low extrem w oth complicationsPa in in right lower legPain in left lower legLocalized edemaCramp and spasm 3 Frandy PENNINGTON FACS RVT MICHAEL Olson. [address] [address], [place], [address], [place]. tel:[phone] Referring Provider: Yumiko Schultz, [address], [address], [place], [address]. tel:[phone] Family History Family Member Type Diagnosis Age At Onset No Information Payers Payer name Insurance type Covered libertarian ID Odilia garcia(s) [facility] [id number] Social History Type Description Quantity Date Captured Comments Sex Female Smoking Status No Information Chief Complaint And Reason For Visit No Information Reason For Referral Reason For Referral No Information Plan Of Treatment Date Type Action Status Goal Diet education completed Goal Tobacco cessation counseling completed Goal Tobacco cessation counseling completed Goal Diet education completed Goal Diet education completed Goal Tobacco cessation counseling completed Aug-08-2023 Goal Diet education completed Goal Tobacco cessation counseling completed Referral Ordered: Weight management: Referral to physician timeframe: 3 Months (related to Body mass index (BMI) 28.0-28.9, adult) ordered Referral Ordered: Weight management: Referral to physician timeframe: 3 Months (related to Body mass index (BMI) 28.0-28.9, adult) ordered Referral Ordered: Weight management: Referral to physician timeframe: 3 Months (related to Body mass index (BMI) 28.0-28.9, adult) ordered Referral Ordered: Weight management: Referral to physician timeframe: 3 Months (related to Body mass index (BMI) 28.0-28.9, adult) ordered History Of Present Illness Encounter Date Complaint History Of Prese nt Illness No Information Functional Status Date Functional Assessmen t No Information Instructions Date Instruction Additional Infor marcia Lifestyle education Related to B raffy mass index (BMI) 28.0-28.9, adult Diet education Related to Body mass index (BMI) 28.0-28.9, adult Giving Encouragement to exercise Related to Body mass index (BMI) 28.0-28.9, adult Compression stocking usage as conservative measure Related to Varicose veins of right lower extremity with pain Patient education booklet given Related to Varicose veins of right lower extremity with pain Compression stocking usage as conservative measure Related to Varicose veins of bilateral lower extremities with other complications Patient education booklet given Related to Varicose veins of bilateral lower extremities with other complications Lifestyle education Related to B raffy mass index (BMI) 28.0-28.9, adult Diet education Related to Body mass index (BMI) 28.0-28.9, adult Giving Encouragement to exercise Related to Body mass index (BMI) 28.0-28.9, adult Lifestyle education Related to B raffy mass index (BMI) 28.0-28.9, adult Diet education Related to Body mass index (BMI) 28.0-28.9, adult Giving Encouragement to exercise Related to Body mass index (BMI) 28.0-28.9, adult Patient education booklet given Related to Varicose veins of bilateral lower extremities with other complications Pre and post instruc tions reviewed and provided Related to Varicose veins of bilateral lower extremities with other complications Diet education Related to Body mass index (BMI) 28.0-28.9, adult Giving Encouragement to exercise Related to Body mass index (BMI) 28.0-28.9, adult Lifestyle education Related to B raffy mass index (BMI) 28.0-28.9, adult Patient education booklet given Related to Varicose veins of bi low extrem w oth complications Pre and post instruc tions reviewed and provided Related to Varicose veins of bi low extrem w oth complications Assessments Type Assessment Date No Information Patient Care Teams Name Effective Dates (start - stop) Status Members No Information
--- OUTSIDE RECORDS SUMMARY | 2024-12-24 16:38 | XMS_ITS | Clinical Summary ---
Author Organization [facility] Address [address] [place] [address] Care Team Providers Care Pipeline Superintendent Name Role Phone Joselo Mckeon Primary Care Provider [phone] Allergies Active Allergy Reactions Criticality Noted Date [...] affected nail 8 mL 2 12/08/2015 Active [id number] 12 3-35-2 MG TABS Take 1 tablet [...] COVID-19 Vaccine ( season) 2024 11/02/2020, 10/05/2020 BMI Counseling 03/30/2024 03/30/2023, 12/09, 07/14/2022, Additional history exists Colon Cancer Screening (Colonoscopy) 2024 Influenza Vaccine (#1) 2025 DTap / Tdap / Td (2 - Td or Tdap) 03/23/2030 03/23/2020 Pneumococcal Vaccine Aged Out No long er eligible based on patient's age to complete this topic RSV Ped < 20 months Aged Out No longe r eligible based on patient's age to complete this topic Care Teams Pipeline Superintendent Relationship Specialty Start Date End Date Joselo Mckeon DO [address] [place] [address] [place] [id number] PCP - General Unknown Physician Specialty 12/08/15
[2024-12-24 17:15] LABS: Hematocrit 45.0 % (37.0-47.0); Hemoglobin 14.5 g/dl (12.0-16.0); Imm Gran Abs Auto 0.06 X10*3/uL (0.00-0.03); Imm Gran Pct Auto 0.5 % (0.0-0.4); Lymphocytes Absolute Auto 0.7 X10*3/uL (1.2-4.9); MANUAL DIFF FLAG SCAN; Mean Corpuscular HGB Conc 32.2 g/dl (31.0-35.0); Mean Corpuscular Hemoglobin 30.6 pg (27.0-33.0); Mean Corpuscular Volume 94.9 fL (80.0-98.0); NRBC Abs Auto 0.000 X10*3/uL (0.0-0.012); NRBC Pct Auto 0.0 /100WBC (0.0-0.2); Platelet Count 233 X10*3/uL (160-400); Red Blood Count 4.74 X10*6/uL (4.20-5.50); SCAN SMEAR FLAG 1; White Blood Count 11.1 X10*3/uL (4.8-10.8)
[2024-12-24 17:18] LABS: D Dimer High Sensitivity < 150 NG/ML; Partial Thromboplastin Time 35.4 SEC (26.0-36.8)
[2024-12-24 17:41] LABS: Alanine Aminotransferase 17 U/L (0-31); Albumin Level 4.9 g/dL (3.5-5.0); Alkaline Phosphatase 64 U/L (39-117); Anion Gap 13 (12-20); Aspartate Amino Transferase 15 U/L (5-31); Blood Urea Nitrogen 17 mg/dL (9-16); Calcium 9.0 mg/dL (8.4-10.2); Carbon Dioxide 26 mmol/L (22-29); Chloride 105 mmol/L (96-108); Estimated Glomerular Filt Rate > 60; Magnesium 2.0 mg/dL (1.6-2.6); Potassium 4.2 mmol/L (3.3-5.1); Sodium 140 mmol/L (135-145); Total Protein 7.1 g/dL (6.5-8.0)
[2024-12-27 07:04] LABS: Beta-2 Glycoprotein I Ab IgG <2.0 U/mL (<20.0); Beta-2 Glycoprotein I Ab IgM <2.0 U/mL (<20.0); Beta-2 Glycoprotein I Ab, IgA <2.0 U/mL (<20.0); Phosphatidylserine PT IgM 11 U (<=30)
[2024-12-29 10:38] LABS: Anti Nuclear Antibody Screen NEGATIVE (NEGATIVE)
[2025-01-01 00:54] LABS: Estradiol Ultra Sensitive 269 pg/mL
== END 2024-12-24 16:36 | disposition home or self-care (01) ==
LOC: HO.LAB 16:35
PROVIDERS: PCP Internal Medicine; Visit Provider Physician Assistant
DX: I26.99 Other pulmonary embolism without acute cor pulmonale (principal)
CPT/HCPCS: 36415; 80053; 81241; 82670; 82672; 83090; 83516; 83735; 84443; 85025; 85230; 85240; 85250; 85379; 85730; 86038; 86146; 86147; 86160; 86200; 86225; 86431

== ENCOUNTER 2025-03-31 11:28 | Outpatient (REF) | payer BC, SELFPAY ==
--- OUTSIDE RECORDS SUMMARY | 2025-03-31 14:45 | XMS_ITS | Data Portability ---
Author Organization [facility], Telehealth Patient Home Address [address] [place] [address] Assessment No assessment recorded. Plan of Treatment Reminders Order Date Submit Date Provider Last Modified By Organization Details Last Modified Time Details Appointments FOLLOW UP 15 2024 10:00A M MONIK HUYNH Not available Not available Not available Lab lh + FSH, serum 2024 025 [facility], [address] [place] [address], [id number], 03/20/2025 09:37:06 progester one, serum 2024 025 [facility], [address] [place] [address], [id number], 03/20/2025 09:37:07 estradiol , serum 2024 025 [facility], [address] [place] [address], [id number], 03/20/2025 09:37:06 estrogen, total, serum 2024 025 [facility], [address] [place] [address], [id number], 03/20/2025 09:37:07 testoster one, total, serum 2024 025 [facility], [address] [place] [address], [id number], 03/20/2025 09:37:06 prolactin , serum 2024 [facility], [address] [place] [address], [id number], 03/20/2025 09:37:07 ESR (erythroc yte sedimenta tion rate), blood 2024 [facility], [address] [place] [address], [id number], 03/20/2025 09:37:06 C-reactiv e protein, quantitat ivan, serum or plasma 2024 [facility], [address] [place] [address], [id number], 03/20/2025 09:37:07 tryptase, serum 2024 [facility], [address] [place] [address], [id number], 03/20/2025 09:37:07 Referral None recorded. Procedures None recorded. Surgeries None recorded. Imaging CT, chest, w/o contrast 2024 [facility], [address] [place], [address], 02/27/2025 09:57:02 Medication Orders prednison e 5 mg tablet 2024 [facility] [address] [facility] [address] [place], [place], [id number], 03/20/2025 09:26:22 tramadol 50 mg tablet 2024 025 [facility] [address] [facility] [address], [place], [id number], 02/27/2025 12:41:56 diazepam 5 mg tablet 2024 [facility] ([facility]), [address], [place], [id number], 02/27/2025 12:47:45 suzetrigi ne 50 mg tablet 2024 025 CALISTA Mcwilliams ([facility]), [address], [place], [id number], 02/20/2025 10:13:21 prednison e 10 mg tablet 2024 025 CALISTA Mcwilliams ([facility]), [address], [place], [id number], 02/20/2025 10:17:20 Xarelto 20 mg tablet 2024 025 CALISTA Mcwilliams ([place] [address]), [address], [place], [id number], 02/20/2025 10:07:50 cyanocoba ami (vit B-12) 1,000 mcg/mL injection solution 2024 025 [email or web address] Chidi Mcwilliams ([facility]), [address], [place], [id number], 01/30/2025 11:03:20 diazepam 5 mg tablet 2024 025 CALISTA Mcwilliams ([facility]), [address], [place], [id number], 01/27/2025 12:17:12 methocarb naomi 750 mg tablet 2024 025 CALISTA Mcwilliams ([facility]), [address], [place], [id number], 01/27/2025 12:17:20 Patient TargetsNo targets recorded. Patient InstructionsNo instructions recorded. Reason for Referral None Reported. Results Created Date Observation Date Name Description Value Unit Range Abnormal Flag Note LastModifiedBy Organization Detail LastModifiedTime 01/22/2001/21/2025 NM, bone scan, limit ed No observ ation record ed. [email or web address] [facility] [address] [facility], [place], [address], 01/23/2025 10:52:36 02/05/2002/01/2025 CT, chest , w/o contr ast No observ ation record ed. [email or web address] [facility] [address] [place], [address], 02/06/2025 12:06:48 03/11/2003/09/2025 CT, chest , w/o contr ast No observ ation record ed. [email or web address] [facility] [address] [place], [address], 03/11/2025 15:05:09 Result Notes None recorded. Problems Name Problem SNOMED Code Status Onset Date Resolution Date Notes Provider Name and Address Organization Details Recorded Time Substanc e abuse 98152264 Completed 201702/08/2018 narcotic Joselo Mckeon, [address] [place] [address], [address], [facility] [place] 8 11:40:11 Fibromya lgia 950465956 Active 2017 Blanka topete [facility] 8 08:24:16 Bursitis 36650814 Active 2017 R hip, trochant ollie M70.61 Blanka topete [facility] 8 08:24:54 Herpes simplex 11392502 Active 2017 genital Blanka topete [facility] 8 08:25:25 Psoriati c arthriti s 758640988 Active 2017 Blanka topete [facility] 8 08:25:42 Depressi ve disorder 00566132 Active 2017 Joselo Mckeon DO [address] [place], [address], [facility] [place] 8 11:47:42 Anxiety disorder 127098445 Active 2017 Joselo Mckeon, DO [address] [place] [address], [address], [facility] [place] 8 11:47:54 Tobacco dependen ce syndrome 54073181 Active 2017 Joselo Mckeon, DO [address] [place] [address], [address], [facility] [place] 8 11:41:05 Carpal tunnel syndrome 23224434 Active 2018 Joselo Mckeon DO [address] [place] [address], [address], [facility] [place] 9 11:21:46 Lumbosac ral radiculi tis 91494502 Active 2018 Joselo Mckeon DO [address] [place] [address], [address], [facility] [place] 9 13:39:48 Effusion of joint of right knee 8091495612 01546 Active 2018 Joselo Mckeon DO [address] [place] [address], [address], [facility] [place] 9 13:40:09 COVID-19 934499377 Active 202006/10/20 [facility] 1 08:44:33 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 Active 2021 Joselo Mckeon DO [address] [place] [address], [address], [facility] [place] 2 12:32:14 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 Active 2021 Joselo Mckeon DO [address] [place] [address], [address], [facility] [place] 2 12:33:25 Inflamma tion of sacroili ac joint 52879613 Active 2021 Joselo Mckeon, DO [address] [place] [address], [address], [facility] [place] 2 12:39:14 Cough 46798019 Active 2021 MONIK HUYNH [address] [place] [address], [address], [facility] [place] 2 15:19:41 Pneumoni tis 631623932 Active 2021 Joselo Mckeon, DO [address] [place] [address], [address], [facility] [place] 2 23:01:02 Postoper ative wound infectio n 75704368 Active 2021 Joselo Mckeon DO [address] [place] [address], [address], [facility] [place] 2 12:18:27 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 0225726244 92410 Active 2021 Joselo Mckeon DO [address] [place] [address], [address], [facility] [place] 2 12:21:16 Surgical incision wound of skin 6117367035 00 Active 2021 MONIK HUYNH [address] [place] [address], [address], [facility] [place] 2 10:38:41 Sense of smell altered 220856590 Active 2022 MONIK HUYNH [address] [place] [address], [address], [facility] [place] 3 16:54:35 Serous otitis media 74874671 Active 2022 MONIK HUYNH [address] [place] [address], [address], [facility] [place] 3 16:54:55 Fatigue 42201445 Active 2022 MONIK HUYNH [address] [place], [address], [facility] [place] 5 09:40:10 Dysmenor carlo 666933468 Active 2022 MONIK HUYNH [address] [place], [address], [facility] [place] 3 17:04:09 Pain of multiple joints 72030854 Active 2022 Joselo Mckeon, DO [address] [place], [address], [facility] [place] 3 11:53:02 Chronic constipa tion 020228308 Active 2022 Joeslo Mckeon, DO [address] [place], [address], [facility] [place] 3 12:36:43 Varicose veins of lower extremit y 95542101 Active 2022 MONIK HUYNH [address] [place], [address], [facility] [place] 3 11:52:45 Middle ear effusion 7401069420 Active 2022 MONIK HUYNH [address] [place], [address], [facility] [place] 3 10:45:26 Irritabl e bowel syndrome characte rized by constipa tion 886991790 Active 2022 MONIK HUYNH [address] [place], [address], [facility] [place] 3 10:49:50 Varicose veins of lower extremit y 30018898 Active 2022 MONIK HUYNH [address] [place], [address], [facility] [place] 3 10:49:57 Allergic rhinitis 28070879 Active 2022 MONIK HUYNH [address] [place], [address], [facility] [place] 3 09:11:56 Candidia sis of skin 12117721 Active 2022 MONIK HUYNH [address] [place], [address], [facility] [place] 3 09:17:19 Pain of ear 878033578 Active 2022 MONIK HUYNH [address] [place], [address], [facility] [place] 3 10:45:53 Sprain of right ankle 7360813658 5571610 Active 2023 MONIK HUYNH [address] [place], [address], [facility] [place] 4 14:39:22 Cervical myelopat hy 449549104 Active 2023 Joselo Mckeon, DO [address] [place], [address], [facility] [place] 4 09:34:41 Liver enzymes level above referenc e range 709085371 Active 2023 MONIK HUYNH [address] [place] [address], [address], [facility] [place] 4 13:38:49 Constipa tion 41940147 Active 2023 MONIK HUYNH [address] [place] [address], [address], [facility] [place] 4 13:39:54 Dysuria 70567632 Active 2023 MONIK HUYNH [address] [place] [address], [address], [facility] [place] 4 13:48:18 Umbilica l hernia 381545192 Active 2023 MONKI HUYNH [address] [place] [address], [address], [facility] [place] 4 10:43:27 Spasm of back muscles 251090999 Active 2023 MONIK HUYNH [address] [place], [address], [facility] [place] 4 10:49:31 Acne 45027106 Active 2023 MONIK HUYNH [address] [place], [address], [facility] [place] 4 10:52:50 Acute otitis media 2466821 Active 2023 MONIK HUYNH [address] [place], [address], [facility] [place] 4 11:21:42 Chronic sinusiti s 25424198 Active 2023 MONIK HUYNH [address] [place], [address], [facility] [place] 4 11:23:40 Cervical radiculo ivanna 38709283 Active 2023 MONIK HUYNH [address] [place], [address], [facility] [place] 4 11:25:59 Pain in finger of right hand 2663674066 18885 Active 2023 MONIK HUYNH [address] [place], [address], [facility] [place] 4 10:55:31 Closed fracture of distal phalanx of ring finger of right hand 7554642329 7325166 Active 2023 MONIK HUYNH [address] [place], [address], [facility] [place] 4 09:58:17 Acute sinusiti s 55421680 Active 2023 MONIK HUYNH [address] [place], [address], [facility] [place] 4 09:42:52 Degenera tion of lumbar interver tebral disc 95792263 Active 2023 MONIK HUYNH [address] [place], [address], [facility] [place] 4 11:12:53 Onychomy cosis 324243086 Active 2023 MONIK HUYNH [address] [place], [address], [facility] [place] 4 11:19:35 Gastroes ophageal reflux disease 777174450 Active 2023 MONIK HUYNH [address] [place], [address], [facility] [place] 4 11:45:29 Low back pain 256305820 Active 2023 MONIK HUYNH [address] [place], [address], [facility] [place] 4 11:52:36 Pain of left knee joint 5805563667 27490 Active 2024 Joselo Mckeon, DO [address] [place], [address], [facility] [place] 5 12:00:04 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 137805046 Active 2024 MONIK HUYNH [address] [place], [address], [facility] [place] 5 10:52:38 Bilatera l foot drop 6538106593 4868693 Active 2024 MONIK HUYNH [address] [place], [address], [facility] [place] 5 10:52:38 Asthma 220889866 Active 2024 MONIK HUYNH [address] [place], [address], [facility] [place] 5 10:14:35 Influenz a caused by Influenz a A virus 211814124 Active 2024 MONIK HUYNH [address] [place], [address], [facility] [place] 5 10:17:23 Acute bronchit is 75674847 Active 2024 MONIK HUYNH [address] [place], [address], [facility] [place] 5 10:20:18 Dyspnea 358473528 Active 2024 MONIK HUYNH [address] [place], [address], [facility] [place] 5 09:41:19 Pulmonar y embolism 08970396 Active 2024 MONIK HUYNH [address] [place], [address], [facility] [place] 5 09:46:18 Acute pulmonar y embolism 530281412 Active 2024 MONIK HUYNH [address] [place], [address], [facility] [place] 5 09:03:34 Cor pulmonal e 91221771 Active 2024 MONIK HUYNH [address] [place], [address], [facility] [place] 5 08:43:00 Blood coagulat ion disorder 82175101 Active 2024 MONIK HUYNH [address] [place], [address], [facility] [place] 5 08:43:39 Migraine 62857938 Active 2024 MONIK HUYNH [address] [place] [address], [address], [facility] [place] 5 10:22:38 Pruritic rash 04978934 Active 2024 MONIK HUYNH [address] [place] [address], [address], [facility] [place] 5 10:37:36 Follicul itis 98714951 Active 2024 MONIK HUYNH [address] [place], [address], [facility] [place] 5 10:39:39 Cobalami n deficien cy 529844023 Active 2024 MONIK HUYNH [address] [place], [address], [facility] [place] 5 10:05:21 Uncompli cated moderate persiste nt asthma 405880110 Active 2024 MONIK HUYNH [address] [place], [address], [facility] [place] 5 12:58:50 Gastro-e sophagea l reflux disease with esophagi tis 672623043 Active 2024 MONIK HUYNH [address] [place], [address], [facility] [place] 5 10:00:09 Dyspnea on exertion 37949771 Active 2024 MONIK HUYNH [address] [place], [address], [facility] [place] 5 10:02:15 Chronic musculos keletal pain due to disease of nervous system 243803545 Active 2024 MONIK HUYNH [address] [place], [address], [facility] [place] 5 10:10:37 Acute bilatera l otitis media 845636122 Active 2024 MONIK HUYNH [address] [place], [address], [facility] [place] 5 14:17:15 Dysfunct ion of bilatera l eustachi an tubes 2243055097 192336 Active 2024 MONIK HUYNH [address] [place], [address], [facility] [place] 14:23:29 Mycosis 6810066 Active 2024 MONIK HUYNH [address] [place], [address], [facility] [place] 5 14:26:08 Tension- type headache 637875372 Active 2024 MONIK HUYNH [address] [place], [address], [facility] [place] 5 14:27:18 Acute right otitis media 114111707 Active 2024 MONIK HUYNH [address] [place], [address], [facility] [place] 10:46:46 Fracture of left sixth rib Active 2024 MONIK HUYNH [address] [place], [address], [facility] [place] 09:48:54 Patholog ical fracture of left rib 1782613688 5671653 Active 2024 MONIK HUYNH [address] [place], [address], [facility] [place] 5 09:49:52 Rib pain 663006745 Active 2024 MONIK HUYNH [address] [place], [address], [facility] [place] 15:38:49 Closed fracture of multiple right ribs 7433928857 9855689 Active 2024 MONIK HUYNH [address] [place], [address], [facility] [place] 12:11:01 Closed fracture of multiple left ribs 9491432354 5224471 Active 2024 MONIK HUYNH [address] [place], [address], [facility] [place] 5 12:12:35 Finding of bone of thorax 123545185 Active 2024 MONIK HUYNH [address] [place], [address], [facility] [place] 5 10:09:23 Chronic pain syndrome 882287208 Active 2024 MONIK HUYNH [address] [place], [address], [facility] [place] 5 09:31:44 [facility] 1295748548 01156 Active 2024 MONIK HUYNH [address] [place] [address], [address], [facility] [place] 5 09:33:17 Autoimmu ne disease 78783195 Active 2024 MONIK HUYNH [address] [place] [address], [address], [facility] [place] 5 09:34:48 Problem Notes None recorded. Procedures Surgical History Date Name Laterality Status Provider Name and Address Organization Details Recorded Time 11/13/2018 Date of Last Pap Smear completed Darlene Costa [facility] 01/17/2019 14:01:49 Imaging Results None recorded. Procedure Notes None recorded. Medical Equipment None Reported. Allergies Allergen ID Allergen Name Allergen Category Reaction Reaction Severity Criticality Documentation Date Start Date Code Code System Note Provider Name and Address Organization Details Recorded Time 1450 Product containin g penicilli n (product) medicatio n Not available Not available Not available 11/02/2017 52381 8001 SNOMED [facility] 8 08:22:53 7229 Sudafed medicatio n Not available Not available Not available 02/09/202347517 2 RxNorm MONIK HUYNH [address] [place], [address], [facility] [place] 3 10:47:51 Medications Name Sig [...] TABLETS BY MOUTH FOUR TIMES DAILY NEEDED 12/19 completed Not Available Not Available Not Available venlafaxi ne ER 37.5 mg capsule,e xtended release 24 hr TAKE 1 CAPSULE BY MOUTH EVERY DAY 09/14 completed Not Available Not Available Not Available prednison e 10 mg tablet TAKE 1 TABLET BY MOUTH EVERY DAY DIRECTED active Not Available Not Available No t Available venlafaxi ne ER 75 mg capsule,e [...] completed Not Available Not Available Not Available ipratropi um 0.5 mg-albute rol 3 mg (2.5 mg base)/3 mL nebulizat ion soln INHALE 3 ML 4 TIMES A DAY BY NEBULIZA TION ROUTE NEEDED FOR 90 DAYS active Not Available Not Available No t Available nabumeton e 750 mg tablet TAKE [...] ORAL ROUTE ONCE DAILY FOR 4 DAYS 03/20 completed Not Available Not Available Not Available fluconazo le 150 mg tablet TAKE 1 TABLET BY MOUTH EVERY DAY FOR 3 DAYS DIRECTED 12/26 completed Not Available Not Available Not [...] meloxicam 15 mg tablet TAKE 1 TABLET BY MOUTH EVERY DAY 12/26 completed Not Available Not Available Not Available sucralfat e 1 gram tablet TAKE 1 TABLET BY MOUTH FOUR TIMES DAILY FOR 14 DAYS DIRECTED active Not Available Not Available No t Available famotidin e 40 mg tablet TAKE 1 TABLET BY MOUTH EVERY DAY active Not Available Not Available No t Available prednison e 20 mg tablet TAKE 1 TABLET BY MOUTH EVERY DAY NEEDED 12/05 completed Not Available Not Available Not Available prednison e 5 mg tablet TAKE 1 TABLET BY MOUTH EVERY DAY DIRECTED active Not Available Not Available No t Available clobetaso l 0.05 % topical cream APPLY THIN COAT TO AFFECTED AREA TWICE A DAY 08/11 completed Not Available Not Available Not Available clindamyc in HCl 150 mg capsule 11/02 completed Not Available Not Available Not Available leflunomi de 10 mg tablet TAKE 1 TABLET BY MOUTH DAILY WITH FOOD active Not Available Not Available No t Available oxcarbaze pine 300 mg tablet TAKE 1 TABLET BY MOUTH TWICE DAILY DIRECTED 12/26 completed Not Available Not Available Not [...] 1 TABLET BY MOUTH EVERY 8 HOURS NEEDED active Not Available Not Available No [...] TAKE 1 TABLET BY MOUTH EVERY DAY 12/05 completed Not Available Not Available Not Available lorazepam 0.5 mg tablet TAKE 2 [...] Not Available Not Available No t Available cyanocoba ami (vit B-12) 1,000 mcg/mL injection solution ADMINIST ER 1 ML UNDER THE SKIN EVERY MONTH DIRECTED active Not Available Not Available No t Available clotrimaz ole-betam ethasone 1 %-0.05 % topical cream APPLY TOPICALL Y TO THE AFFECTED AND SURROUND ING AREAS TWICE DAILY IN THE MORNING AND IN THE EVENING FOR 2 WEEKS 04/01 completed Not Available Not Available Not Available lidocaine 5 % topical patch APPLY 1 PATCH BY TOPICAL ROUTE ONCE DAILY; MAY WEAR UP TO 12 HOURS 12/05 completed Not Available Not Available Not Available nicotine 21 mg/24 hr daily transderm al [...] Available Not Available Not Available budesonid e 0.5 mg/2 mL suspensio n for nebulizat ion INHALE 2 ML TWICE A DAY BY NEBULIZA TION ROUTE NEEDED FOR 90 DAYS active Not Available Not Available No t Available diclofena c sodium 75 mg tablet,de layed release TAKE 1 TABLET BY MOUTH TWICE DAILY DIRECTED 12/05 completed Not Available Not Available Not Available folic acid 1 mg tablet Take one tablet daily. 09/14 completed Not Available Not Available Not Available monteluka st 10 mg tablet TAKE 1 TABLET BY MOUTH EVERY DAY active Not Available Not Available No t Available mupirocin 2 % topical ointment APPLY SMALL AMOUNT TOPICALL Y TO THE AFFECTED AREA THREE TIMES DAILY active Not Available Not Available No t Available mirtazapi ne 15 mg tablet 11/02 completed Not Available Not Available Not Available gabapenti n 100 mg capsule TAKE 1 CAPSULE BY MOUTH EVERY DAY 04/01 completed Not Available Not Available Not Available azelastin e 137 mcg (0.1 %) nasal spray USE 2 SPRAYS IN EACH NOSTRIL TWICE DAILY NEEDED active Not Available Not Available No t Available oxaprozin 600 mg tablet TAKE 2 [...] mcg/actua tion aerosol inhaler INHALE 2 PUFFS BY MOUTH EVERY 4 HOURS NEEDED active Not Available Not Available No t Available celecoxib 100 mg capsule TAKE 1 CAPSULE BY MOUTH TWICE DAILY 03/13 completed increase to 400 mg Not Available Not Available Not Available cefdinir 300 mg capsule TAKE 1 CAPSULE BY MOUTH 2 TIMES A DAY FOR 7 DAYS. TAKE W FOOD, YOGURT, PROBIOTI CS. FINISH ALL. 12/19 completed Not Available Not Available Not Available etodolac 500 mg tablet Take 0.75 tablets twice a day by oral route for 30 days. 08/01 completed Not Available Not Available Not Available ipratropi um bromide 21 mcg (0.03 %) nasal spray USE 2 SPRAYS IN EACH NOSTRIL EVERY 12 HOURS active Not Available Not Available No t Available diazepam 5 mg tablet TAKE 1 TABLET BY MOUTH EVERY DAY NEEDED 2024 active Not Available Not Available Not Avai lable nicotine 7 mg/24 hr daily transderm al patch Apply 1 patch every day by transder mal route for 14 days. 04/08 completed Not Available Not Available Not Available tobramyci n 0.3 %-dexamet hasone 0.1 % eye drops,allegra pension INSTILL 1 DROP INTO AFFECTED EYE(S) BY OPHTHALM IC ROUTE EVERY 6 HOURS 12/26 completed Not Available Not Available Not Available neomycin- polymyxin -hydrocor t 3.5 mg-10,000 unit/mL-1 % ear drops,allegra p PLACE 4 DROPS INTO THE LEFT EAR 4 (FOUR) TIMES A DAY FOR 7 DAYS. 12/19 completed Not Available Not Available Not Available DentaGel 1.1 % 04/06 /2021 completed Not Available Not Available Not Available nicotine (polacril ex) 4 mg buccal lozenge 02/27 completed Not Available Not Available Not Available ciproflox acin 0.3 %-dexamet hasone 0.1 % ear drops,allegra pension SHAKE LIQUID AND INSTILL 4 DROPS TO AFFECTED EAR TWICE DAILY FOR 7 DAYS 01/09 completed Not Available Not Available Not Available [...] LUNGS TWICE A DAY FOR 30 DAYS 12/05 completed PRN Not Available Not Available Not Available tizanidin e 6 mg capsule Take [...] active Not Available Not Available Not Available Pulmicort Flexhaler 90 mcg/actua tion breath activated INHALE 2 PUFFS BY MOUTH TWICE DAILY DIRECTED active Not Available Not Available No t Available carisopro dol 250 mg tablet Take [...] mg sublingua l film DISSOLVE 2 FILMS EVERY DAY UNDER THE TONGUE active Not Available Not Available No t Available Xarelto 20 mg tablet TAKE 1 TABLET BY MOUTH EVERY DAY DIRECTED active Not Available Not Available No [...] Not Available Eliquis 5 mg tablet TAKE 1 TABLET BY MOUTH TWICE DAILY 02/20 completed Not Available Not Available Not Available Vitamin B12 active Not Available Not Available Not Available Linzess 72 mcg capsule TAKE 1 CAPSULE BY MOUTH DAILY 30 MINUTES BEFORE FIRST MEAL OF THE DAY ON AN EMPTY STOMACH active Not Available Not Available No t Available Flucelvax Quad 9871-8429 (PF) 60 mcg (15 mcg x 4)/0.5 mL IM syringe 12/28 completed Not Available Not Available Not Available Breztri Aerospher e 160 mcg-9mcg- 4.8mcg/ac tuation HFA aerosol inhaler INHALE 2 PUFFS INTO THE LUNGS TWICE DAILY active Not Available Not Available No t Available Flowflex COVID-19 Antigen Home Test kit TEST DIRECTED TODAY 09/15 completed Not Available Not Available Not Available methocarb naomi 1,000 mg tablet Take 1 tablet 4 times a day by oral route as needed for 90 days. 06/10 completed Not Available Not Available Not Available Journavx 50 mg tablet TAKE 1 TABLET BY MOUTH EVERY 12 HOURS DIRECTED active Not Available Not Available No t Available Vitals Date Recorded Body height Heart rate Oxygen saturation Oxygen saturation in Arterial blood by Pulse oximetry Systolic And Diastolic Provider Name and Address Organization Details Last Updated DateTime 5 167.64 cm 90 /min 97 % 97 % 124/78 mm[Hg] Nette Baig [facility] Internal [facility] 5 11:53:02 Date Recorded Body height Heart rate Oxygen saturation Oxygen saturation in Arterial blood by Pulse oximetry Systolic And Diastolic Provider Name and Address Organization Details Last Updated DateTime 5 167.64 cm 88 /min 97 % 97 % 120/70 mm[Hg] Tiffany Rowe [facility] Internal Medicine 5 09:51:50 Date Recorded Body height Body mass index (BMI) Body weight Heart rate Oxygen saturation Oxygen saturation in Arterial blood by Pulse oximetry Systolic And Diastolic Provider Name and Address Organization Details Last Updated DateTime 5 167.64 cm 33.1 kg/m2 15548.4 4 g 78 /min 97 % 97 % 128/70 mm[Hg] Tiffany Rowe [facility] Internal Medicine 5 09:17:48 Social History Question Answer Notes LastModified by Organizat ion Details LastModified Time Tobacco Smoking Status Current Every Day Smoker Not Available [employer] 04/13/2020 03:36:23 What Was The Date Of Your Most Recent Tobacco Screening? 03/20/2025 Information not available 03/20/2025 How Much Tobacco Do You Smoke? 0.5 PPD Information not available 10/28/2021 Sex: Unknown Functional Status Question Answer Note LastModified by Organization D etails LastModified Time Do you or have you ever used any other forms of tobacco or nicotine? No Information not available 10/28/2021 Mental Status None recorded. Family History Nothing Reported. Medical History No medical history recorded. Gynecological History Statement/Question Response Date of Last Pap Smear 11/13/2018 Obstetrics History GPAL:G 0 P 0 0 0 0 Immunizations Vaccine Type Date Status Note Provider Nam e and Address Organization Details Recorded Time COVID-19, mRNA, LNP-S, PF, 100 mcg/0.5mL dose or 50 mcg/0.25mL dose 1 completed Jael topete [facility] 12/15/2020 08:36:36 COVID-19, mRNA, LNP-S, PF, 100 mcg/0.5mL dose or 50 mcg/0.25mL dose 1 completed Jael topete [facility] 12/15/2020 08:36:42 COVID-19, mRNA, LNP-S, PF, 100 mcg/0.5mL dose or 50 mcg/0.25mL dose 2 completed Darlene topete [facility] 10/28/2021 11:57:24 influenza, unspecified formulation 6 completed Ramona topete [facility] 07/26/2022 08:29:44 influenza, unspecified formulation 0 completed Ramona topete [facility] 07/26/2022 08:29:51 Tdap 0 completed Joeslo Mckeon DO [address] [place] [address], [id number], [facility] 09/14/2020 11:58:44 Past Encounters Encounter ID Performer Location Encounter Start Date Encounter Closed Date Diagnosis/Indication Diagnosis SNOMED-CT Code Diagnosis ICD10 Code Diagnosis IMO Codes Diagnosis Note [id number] Joselo Mckeon DO [facility] Internal Medicine [address] [facility],[place] [address] 11/02/2017 11:16:50 11/02/2017 14:11:34 Psoriatic arthritis 562627784 L40.50 will be following up with dr santos Anxiety disorder 0323725 06 F41.9 still stressed but is hanging tough states having difficulty fallin asleep Stress fra cture of metatarsal bone 808829821 M84.374A will need ongoing podiatry PT to assist with gait [id number] Joselo Mckeon [facility] Internal Medicine [address] [facility],[place] [address] 12/28/2017 10:56:52 12/28/2017 12:31:23 Anxiety disorder 031632642 F41.9 still stressed but is hanging tough states having difficulty fallin asleep Depressive disorder 3548 9007 F33.9 Fibromyalgia 811618101 M 79.7 consider trial of savella sfter lnog discussion baout ongoing aches and point tenderness areas [id number] Jsoelo Mckeon DO [facility] Internal Medicine [address] [facility],[place] [facility] [place] [address] 02/08/2018 10:54:18 02/08/2018 12:23:49 Depressive disorder 14251647 F33.9 at baseline no changes at this time Fibromyalgia 388935492 M 79.7 unable to take savella due to interactio ns with drugs has a nerve conduct test next month Anxiety disorder F41.9 still stressed but is hanging tough states having difficulty falling asleep and is otherwise doing ok Psoriatic arthritis 1563 37563 L40.50 will be following up with dr santos Tobacco de pendence syndrome 47662565 F17.200 discussion re quitting and pt is actively trying to cut down [id number] Joselo Mckeon [facility] Internal Medicine [address] [facility],[place] [address] 04/08/2018 14:08:38 04/08/2018 16:47:57 Tobacco dependence syndrome 25039521 F17.200 smokes about 1/2 ppd she wants to quit, struggles with motivation has tried chantix not helfpul - too many adrs has done the patch with temporary relief Anxiety disorder F41.9 usually sees mb has been stable Depressive disorder 3548 9007 F32.9 usually followed by mb has been stable Atypical pneumonia 75168 6009 J18.9 didn't hear any abnormalit ies on lung exam, but with low grade fever, sob, and smoking history would like to cover for pneumonia get cxr if sx worsen [id number] Joselo Mckeon [facility] Internal Medicine [address] [facility] [address],[place] [address] 05/24/2018 10:40:36 05/24/2018 11:28:20 Tobacco dependence syndrome 79611588 F17.200 discussion re quitting and pt is actively trying to cut down Anxiety disorder 06 F41.9 still stressed but is hanging tough states having difficulty falling asleep and is otherwise doing ok Depressive disorder 3548 9007 F33.9 at baseline no changes at this time [id number] Joselo Mckeon [facility] Internal Medicine [address] [facility] [address],[place] [address] 07/26/2018 10:43:42 07/26/2018 11:28:24 Anxiety disorder 458160036 F41.9 still stressed but is hanging tough states having difficulty falling asleep and is otherwise doing ok Depressive disorder 5628 9007 F33.9 at baseline no changes at this time Fibromyalgia 530561019 M 79.7 unable to take savella due to interactio ns with drugs has a nerve conduct test next month Carpal vin ryan syndrome 02331911 G56.01 pt will follow and if she starts losing her muscle tone she will have to get it fixed [id number] Joselo Mckeon [facility] Internal Medicine [address] [facility] [address],[place] [address] 09/13/2018 11:13:30 09/13/2018 12:32:34 Tobacco dependence syndrome 91928616 F17.200 discussion re quitting and pt is actively trying to cut down Psoriatic arthritis 1563 30619 L40.50 will be trying diclofenac gel if allowed by insur [id number] Joselo Mckeon [facility] Internal Medicine [address] [facility] [address],[place] [address] 01/17/2019 13:52:32 01/17/2019 14:53:22 Tobacco dependence syndrome 16716628 F17.200 discussion re quitting and pt is actively trying to cut down Anxiety disorder 06 F41.9 still stressed but is hanging tough states having difficulty falling asleep and is otherwise doing ok will refill valium Depressive disorder 3548 9007 F33.9 at baseline no changes at this time [id number] Joselo Mckeon [facility] Internal Medicine [address] [facility],[place] [address] 04/08/2019 13:24:56 04/08/2019 14:02:56 Depressive disorder 64654538 F33.9 at baseline no changes at this time Anxiety disorder 1243026 06 F41.9 still stressed but is hanging tough states having difficulty falling asleep and is otherwise doing ok will refill valium Lumbosacra l radiculitis 98054050 M54.17 recent epidural unhelpful and may have exacerbate d pain as now she is ambulating diff with resultant hip and knee pain Effusion o f joint of right knee 7221927986 78166 M25.461 noted effusion 2' to above will need xrays to start as well as med for pain keterolac Pain of le ft hip joint 3833708231 56097 M25.552 [id number] Joselo Mckeon [facility] Internal Medicine [address] [facility] [address] 08/01/2019 13:26:11 08/01/2019 14:11:37 Depressive disorder 21175352 F33.9 at baseline no changes at this time Anxiety disorder F41.9 states that her anxiety is still the same on duloxetine , has been on it for two years still taking valium when having episodes which she states is the only thing that helps Bursitis 64495914 M71.9 stable Nausea 035403098 R11.0 Nonulcer dyspepsia 89989 07 K30 patient states she has been nauseous for the past three weeks pt states it starts after drinking coffee Abdominal pain 26638700 R10.9 [id number] Joselo Mckeon [facility] Internal Medicine [address] [facility] on [address] [address] 09/19/2019 10:59:14 09/19/2019 11:41:53 Anxiety disorder 783259672 F41.9 states that her anxiety is still the same on duloxetine , has been on it for two years still taking valium when having episodes which she states is the only thing that helps Depressive disorder 3548 9007 F33.9 at baseline no changes at this time Tobacco de pendence syndrome 20259430 F17.200 discussion re quitting and pt is actively trying to cut down Gastroesop hageal reflux disease 068540596 K21.9 now resolved since off sugar substitute s [id number] Joselo Mckeon [facility] Internal Medicine [address] [facility] [address],[place] [address] 03/12/2020 11:28:30 03/12/2020 12:11:52 Depressive disorder 68126688 F33.9 at baseline no changes at this time Fibromyalgia 821533618 M 79.7 unable to take savella due to interactio ns with drugs has a nerve conduct test next month so is now on the venlafaxin e Irritable bowel syndrome characterized by constipation 123074711 K58.1 Adult heal th examination 663244713 Z00.00 [id number] Joselo Mckeon [facility] Internal Medicine [address] [facility],[place] [address] 09/14/2020 11:52:29 09/14/2020 14:34:14 Active or passive immunization 841236785 Z23 had covid she will require the vaccine in the next couple months Adult heal th examination 873216206 Z00.00 reviewed blood work it is excellent except for the vit d she will take supp Nausea 081209183 R11.0 will take for her ability to [...] states is the only thing that helps [id number] Joselo JaquezDO elda [facility] Internal Medicine [address] [facility] [address],[place] [address] 12/24/2020 12:14:14 12/24/2020 12:53:25 Psoriatic arthritis 081534188 L40.50 will be trying diclofenac gel if allowed by insur Tobacco de pendence syndrome 04126668 F17.200 discussion re quitting and pt is actively trying to cut down Anxiety disorder F41.9 states that her anxiety is still the same on duloxetine , has been on it for two years still taking valium when having episodes which she states is the only thing that helps Depressive disorder 3548 9007 F33.9 at baseline no changes at this time Fibromyalgia 181176936 M 79.7 unable to take savella due to interactio ns with drugs has a nerve conduct test next month so is now on the venlafaxin e Chronic bronchitis 43204 004 J42 seems to be better now long discuss re cigg smoke and ivon the use of pred taper [id number] Joselo Mckeon, [facility] Internal Medicine [address] [facility],[place] [address] 05/11/2021 08:09:44 05/13/2021 14:00:02 Psoriatic arthritis 215460790 L40.50 will be trying diclofenac gel if allowed by insur Anxiety disorder F41.9 states that her anxiety is still the same on duloxetine , has been on it for two years still taking valium when having episodes which she states is the only thing that helps Effusion o f joint of right knee 4310225176 60241 M25.461 noted effusion 2' to above will need xrays to start as well as med for pain keterolac Lumbosacra l radiculitis 64568993 M54.17 recent epidural unhelpful and may have exacerbate d pain as now she is ambulating diff with resultant hip and knee pain [id number] Joselo Mckeon, [facility] Internal Medicine [address] [facility],[place] [address] 10/28/2021 11:57:03 11/01/2021 11:37:39 Tobacco dependence syndrome 84628145 F17.200 discussion re quitting and pt is actively trying to cut down Anxiety disorder F41.9 states that her anxiety is still the same on duloxetine , has been on it for two years still taking valium when having episodes which she states is the only thing that helps Depressive disorder 3547 9007 F33.9 at baseline no changes at this time Chronic bronchitis 14201 004 J42 seems to be better now long discuss re cigg smoke and ivon the use of pred taper Psoriatic arthritis 1563 50231 L40.50 will be trying diclofenac gel if allowed by insur 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 73158272 I83.10 this is not a phlebitis picture this is a local irritation of the skin and not vein inflammwe will treat with clobetasol Inflammati on of sacroiliac joint 73220037 M46.1 [id number] Joselo Mckeon [facility] Internal Medicine [address] [facility],[place] [address] 02/03/2022 10:26:55 02/03/2022 11:20:50 Depressive disorder 78082466 F33.9 at baseline no changes at this time Anxiety disorder 0685391 06 F41.9 states that her anxiety is still the same on duloxetine , has been on it for two years still taking valium when having episodes which she states is the only thing that helps Cough 01464744 R05.1 now reoslved Lumbosacra l radiculitis 32527142 M54.17 recent epidural unhelpful and may have exacerbate d pain as now she is ambulating diff with resultant hip and knee paini am wondering if she has had a leg length discrepanc y 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 68896261 I83.10 this is not a phlebitis picture this is a local irritation of the skin and not vein inflammwe will treat with clobetasol [id number] Joselo Mckeon [facility] Internal Medicine [address] [facility],[place] [address] 05/26/2022 11:27:32 05/26/2022 15:20:01 Active or passive immunization 886697000 Z23 had covid she will require the vaccine in the next couple months Adult [facility] th examination 996973391 Z00.01 reviewed blood work it is excellent except for the vit d she will take supp Postoperat ivan wound infection 47307442 T81.40XA Herniation of lumbar intervertebral disc with sciatica 6469898364 32821 M51.16 has had epidural inj which has been helpful seeing in jun Fibromyalgia 607282577 M 79.7 unable to take savella due to interactio ns with drugsshgino will ask the pharmacist to review the meds for poss interactio ns before she starts the samples given by rheum [id number] Joselo Mckeon [facility] Internal Medicine [address] [facility],[place] [address] 05/30/2022 10:16:19 05/30/2022 11:23:53 Surgical incision wound of skin 6942121997 00 R23.8 stable Postoperat ivan wound infection 42968680 T81.40XA improvedco ntinue on abxcall if change in wound [id number] Joselo Mckeon [facility] Internal Medicine [address] [facility],[place] [address] 07/26/2022 16:12:01 07/27/2022 09:08:37 Sense of smell altered 269327378 R43.1 possible infection Serous otitis media 8032 7007 H65.03 start on dual treatmentw ill do start on medrol Fibromyalgia 208799765 M 79.7 still waiting for a new doctor Acute sinusitis 77480641 J01.01 will set start on abx and steriod combo Fatigue 56767432 R53.83 will work up patient for possible reasons for the blood work Dysmenorrhea 888024049 N 94.6 [id number] Joselo Mckeon [facility] Internal Medicine [address] [facility],[place] [address] 08/11/2022 10:56:17 08/11/2022 12:07:36 Inflammation of sacroiliac joint 89225861 M46.1 sacroiliit is Depressive disorder 3548 9007 F33.9 at baseline no changes at this time Chronic bronchitis 21782 004 J42 seems to be better now long discuss re cigg smoke and ivon the use of pred taper Pain of mu ltiple joints 78122052 M25.50 Fibromyalgia 798978269 M 79.7 unable to take savella due to interactio ns with drugsher rheumatolo gist is gone we will see if we can get her into dr miranda office [id number] Joselo Mckeon [facility] Internal Medicine [address] [facility], [place] [address] 09/15/2022 12:10:49 09/15/2022 14:44:12 Herniation of lumbar intervertebral disc with sciatica 3165171876 59867 M51.16 has had epidural inj which has been helpful seeing in ana Inflammati on of sacroiliac joint 32853305 M46.1 sacroiliit is on going did get better with pre d Chronic constipation 236 282804 K59.09 [id number] Joselo Mckeon [facility] Internal Medicine [address] [facility],[place] [address] 12/26/2022 11:15:05 12/26/2022 16:39:54 Anxiety disorder 209066223 F41.3 discussed moodworkin g on finding correct medication to control her pain level will call for diazepam to switch script Depressive disorder 1542 0090 F33.9 discussed mood Herniation of lumbar intervertebral disc with sciatica 5022509295 33623 M51.16 seeing specialist Fibromyalgia 443047386 M 79.7 new referral sent to CT since she has not had any benefit with her current rheumtizan idine for more beneft for the patient's symptoms also can try amitriptyl ine, clomiprami ne, milnacipra n Inflammati on of sacroiliac joint 07306056 M46.1 sending to alt rheum Acute otitis media 30392 03 H65.01 start z mani and medrol Varicose v eins of lower extremity 27448678 I83.93 will set up with another surgeon Renewal of prescription 598184327 Z76.0 send in another script can cont use [id number] Joselo Mckeon [facility] Internal Medicine [address] [facility],[place] [address] 02/09/2023 10:27:15 02/09/2023 14:46:01 Anxiety disorder 398483801 F41.3 stable Middle ear effusion 1004 019314 H74.8X1 will start on singulair Irritable bowel syndrome characterized by constipation 373032710 K58.1 stable Varicose v eins of lower extremity 91501348 I83.93 stable [id number] Joselo Mckeon [facility] Internal Medicine [address] [facility] [address],[place] [address] 03/13/2023 08:56:52 03/13/2023 09:48:18 Anxiety disorder 442183487 F41.3 stable Depressive disorder 9157 0423 F33.9 discussed mood Fibromyalgia 160127005 M 79.7 will add 100 mg Allergic rhinitis 849431 04 J30.2 switch to zafirlukas t 20 mg BID and start on budesonide as well since OTC Fall W19.XXXD will set up with XR lumbar spine Candidiasis of skin 4988 3006 B37.2 will set up with powder [id number] Joselo Mckeon [facility] Internal [facility] [address] [facility] [address] 04/17/2023 09:22:01 04/17/2023 12:12:25 Acute otitis media 6214250 H65.01 given an ear drop and have her do normal saline nasal spray Closed fra cture of fifth metatarsal bone 19657109 S92.352A agueda tapedkeep nail on top of the nail bed and let fall off by itself Candidiasis of skin 4988 3006 B37.2 change to combo cream [id number] Joselo Mckeon [facility] Internal [address] [address] 05/22/2023 10:22:41 05/22/2023 11:07:40 Pain of ear 987035117 H92.03 stablewill monitor Candidiasis of skin 4988 3006 B37.2 stable [id number] Joselo Mckeon [facility] [address],[place] [address] 08/01/2023 07:48:40 08/01/2023 10:20:04 Cervical myelopathy 047986464 G95.9 [id number] Joselo Mckeon [facility] Medicine [address] [place] [address],[place] [address] 08/14/2023 13:27:54 08/14/2023 14:31:04 Liver enzymes level above reference range 841542071 R74.01 will recheck levels, with additional lab work as well and imaging of the biliary system Constipation 28948979 K5 9.09 will also check parathyroi d levels Dysuria 50819071 R30.0 will set up with urinalysis 614809 Joselo Mckeon [facility] Internal Medicine [address] [facility],[place] [address] 09/18/2023 10:27:28 09/18/2023 11:10:19 Anxiety disorder 785930094 F41.3 stable Umbilical hernia 7223423 07 K42.9 will monitor Spasm of back muscles 20 0188002 M62.830 will trial alt msk relaxer Acne 99830858 L70.8 suggested acne wash and contined as needed topical powder Candidiasis of skin 4988 3006 B37.2 stable Pain of ear 991972400 H9 2.03 stablewill monitor [id number] Joselo Mckeon, [facility] Internal Medicine [address] [facility],[place] [address] 11/27/2023 10:53:05 11/27/2023 12:10:46 Depression screening 035815650 Z13.31 0 Acute otitis media 30369 03 H65.01 given an ear drop and have her do normal saline nasal spray Chronic sinusitis 139094 00 J32.8 agreed to f/u with infant childcare provider, could be an allergic reaction given the consistenc y of her issues Cervical radiculopathy 75449711 M54.12 still has to finish her PT before MRI will be approved [id number] Joselo Mckeon [facility] Internal Medicine [address] [facility],[place] [address] 12/25/2023 10:27:07 12/25/2023 15:01:12 Depression screening 730021203 Z13.31 0 Acute otitis media 41704 03 H65.01 add anti-funga l toward Allergic rhinitis 997959 04 J30.2 switch to zafirlukas t 20 mg BID and start on budesonide as well since OTC Cervical radiculopathy 64907818 M54.12 still has to finish her PT before MRI will be approved Herniation of lumbar intervertebral disc with sciatica 3763592412 11323 M51.16 switch the diclofenac BID PRN Spasm of back muscles 20 6798234 M62.830 adjust dose up to 1000 mg QID PRN Chronic sinusitis 054807 00 J32.8 will set up with XR's Pain in fi nger of right hand 2980234159 84548 M79.644 will set up with Dysuria 58373866 R30.0 will set up with urinalysis 461307 Joselo Mckeon [facility] Internal Medicine [address] [place] [address], [place] [address] 01/15/2024 09:46:45 01/15/2024 12:12:40 Closed fracture of distal phalanx of ring finger of right hand 5629948422 6711596 S62.634G f/u XR 276400 Joselo Edy Mckeon [facility] Internal Medicine [address] [facility], [place] [address] 01/29/2024 09:30:08 01/29/2024 10:11:21 Acute sinusitis 40047313 J01.01 will set start on abx and steriod combostero id should Closed fra cture of distal phalanx of ring finger of right hand 6176128290 4718681 S62.634G f/u XR to check for resolution of XR [id number] Joselo Mckeon [facility] Internal Medicine [address] [place] [address], [place] [address] 04/01/2024 10:28:36 04/01/2024 14:35:34 Degeneration of lumbar intervertebral disc 17328882 M51.369 will set up with second opinion Onychomycosis 788951286 B35.1 start on [id number] Joselo Mckeon [facility] [address], ite [facility] [place] [place] [address] 04/29/2024 14:10:31 04/29/2024 14:53:04 Degeneration of lumbar intervertebral disc 12757274 M51.369 had trigger point injections working with the doctor for a new facet injection Spasm of back muscles 20 7936764 M62.830 adjust dose up to 1000 mg QID PRN 713503 Joselo Mckeon [facility] Internal Medicine [address] [place] [address], [place] [address] 06/10/2024 11:10:52 06/10/2024 12:03:07 Gastroesophageal reflux disease 259191917 K21.00 related to a side effect to a medwill start on combo therapy Low back pain 676857235 M54.51 will trial amitriptyl ine and the lidocaine Herniation of lumbar intervertebral disc with sciatica 6406005815 34642 M51.16 switch the diclofenac BID PRN 375410 Joselo Mckeon [facility] Internal Medicine [address] [facility],[place] [address] 07/08/2024 10:22:36 07/08/2024 11:13:10 Gastroesophageal reflux disease 334326028 K21.00 doing much better on the pantoprazo le Low back pain 620548871 M54.51 will trial amitriptyl ine and the lidocaine, hasn't started it yet, wanted to stagger the new meds Herniation of lumbar intervertebral disc with sciatica 0522664559 22625 M51.16 has a second opinion with Dr. Lewis Paralysis due to lesion of spinal cord 910614308 G95.9 stable, no major changes Bilateral foot drop 1563 112363 6347517 M21.371 has second opinion with Dr. Lewis Acute sinusitis 64355223 J01.01 will set start on abx and steriod combostero id should Dysuria 25568115 R30.0 will set up with urinalysis Pain of le ft knee joint 5677699681 99395 M25.562 knee brace and ice prnwill monitor [id number] Joselo Mckeon [facility] Internal Medicine [address] [facility],[place] [address] 07/30/2024 09:09:15 07/30/2024 10:40:32 Asthma 916868103 J45.21 will set up with a nebulizer Influenza caused by Influenza A virus 044581900 J09.X2 will set up wtih pred and cough suppressan t Fibromyalgia 459789805 M 79.7 refill Acute bronchitis 6639871 2 J20.4 repeat CXR given worsened symptoms 669724 Joselo Mckeon [facility] Internal Medicine [address] [facility], [place] [address] 08/05/2024 10:41:34 08/05/2024 12:08:19 Influenza caused by Influenza A virus 683196460 J09.X2 will set up wtih pred and cough suppressan t Dyspnea 935940441 R06.[address] up with [address] chest since now has two negative XRs and her symptoms are worsening Lumbosacra l radiculitis 94520295 M54.17 will take over script from her blade aligner since she hasn't responded to her refill requests Tobacco de pendence syndrome 71424917 F17.290 will start on nicotine 21 mg 679638 Joselo Mckeon [facility] Internal Medicine [address] [facility],[place] [address] 08/13/2024 11:39:37 08/13/2024 14:46:18 Pulmonary embolism 53770886 I26.99 will fu next week Degenerati on of lumbar intervertebral disc 16160707 M51.369 okay right now, tramadol helps for a bit to take the edge off and she uses APAP otherwises o stable currently [id number] Joselo Mckeon [facility] [address] [facility],[place] [facility] [place] [address] 08/19/2024 09:58:16 08/19/2024 10:44:16 Acute pulmonary embolism 066307636 I26.99 send in US echo Cor pulmonale 08550000 I 27.23 recheck US echo Dyspnea 238066690 R06.03 recheck CTA Blood coag ulation disorder 59117773 D68.59 start with lab work Migraine 39578190 G43.90 9 refill Folliculitis 41445025 L7 3.9 will set up with cream Pruritic rash 37623988 L 28.2 will set up wtih PRN prednisone 910825 Joselo Mckeon [facility] Internal Medicine [address] [facility],[place] [address] 09/02/2024 14:12:25 09/02/2024 15:03:48 Fibromyalgia 636195423 M79.7 refill needed, works the best for her Low back pain 263258006 M54.51 can cont until she is off the tramadol Acute pulm onary embolism 065358822 I26.99 has her imaging tomorrow 639004 Joselo Mckeon [facility] Internal Medicine [address] [facility],[place] [address] 10/07/2024 09:27:49 10/07/2024 12:21:49 Renewal of prescription 993587088 Z76.0 send in another script can cont use Depression screening 171 721731 Z13.31 0 Fatigue 85845037 R53.82 496207 will work up patient for possible reasons for the blood work Dyspnea 149546907 R06.02 45277 agreed to PFT Bursitis 66932404 M71.[address] Lewis Lumbosacra l radiculitis 43598690 M54.[address] Lewis Screening for malignant neoplasm of colon 287259667 Z12.11 216020 recommende d colonoscop y 984195 Joselo Mckeon [facility] Internal Medicine [address] [facility],[place] [address] 11/04/2024 09:44:18 11/04/2024 10:41:10 Depression screening 943660579 Z13.31 0 Anxiety disorder 3083256 06 F41.3 stable Asthma 991672883 J45.21 will set up with a nebulizer Cobalamin deficiency 190 374718 E53.8 27771 will switch to the inj instead Cervical radiculopathy 33085592 M54.[address] Lewis 162633 Joselo Mckeon [facility] Internal Medicine [address] [place] [address],[place] [address] 11/07/2024 10:04:37 11/07/2024 10:20:54 Cobalamin deficiency 135334512 E53.8 will switch to the inj instead 990769 Joselo Mckeon [facility] Medicine [address] [place] [address],[place] [address] 12/05/2024 09:44:41 12/05/2024 12:22:37 Depression screening 853430072 Z13.31 0 Gastro-eso phageal reflux disease with esophagitis 424344061 K21.00 8920313223 doing much better on the pantoprazo le Dyspnea on exertion 6084 5006 R06.09 011423 agreed to PFT 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 604668790 M79.18 G89.29 G98.8 9825498148 switch out from gabapentin to oxcarbazep ine and see if she has some relief with it Cobalamin deficiency 190 702213 E53.8 needs refill 016411 Joselo Mckeon [facility] Internal Medicine [address] [facility],[place] [address] 12/19/2024 13:59:00 12/19/2024 15:18:47 Acute bilateral otitis media 358582851 H66.93 5757439 start on dual treatment Dysfunctio n of bilateral eustachian tubes 3576288203 498297 H69.93 25314678 start on azelastine Mycosis 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.9 510538 start on diflucan Tension-type headache 39 7694917 G44.209 97977566 taking care of the sinus problems 112698 Joselo Mckeon [facility] Internal Medicine [address] [facility],[place] [address] 12/24/2024 10:44:32 12/24/2024 13:31:15 Cobalamin deficiency 447552560 E53.8 needs refill Blood pressure taking 46 967626 Z01.30 201153 890203 Joselo Mckeon [facility] Internal Medicine [address] [facility],[place] [address] 12/26/2024 09:31:21 12/26/2024 10:22:13 Depression screening 035510598 Z13.31 0 Pulmonary embolism 53224 003 I26.93 6223336607 left distal pulm arteryresu bmitting Pulm referral waiting on rest of lab work up Fracture o f left sixth rib 9389356443 7106 S22.32XA 3563060119 no cause, recommende d bone scan Pathologic al fracture of left rib 6644133093 5248993 M84.48XA 88894541 aagreed to bone scan Fibromyalgia 892251369 M 79.7 refill needed, works the best for her Low back pain 651288567 M54.51 restart tramadol 214120 Joselo Mckeon [facility] Internal Medicine [address] [place] [address] 01/06/2025 11:46:45 01/06/2025 16:45:34 Rib pain 702479956 R07.81 31803 Low back pain 784094743 M54.51 restart tramadol Migraine 98999866 G43.90 9 refill 626572 Joselo Mckeon [facility] Internal Medicine [address] [place] [address] 01/09/2025 09:46:06 01/09/2025 10:33:06 Depression screening 602055756 Z13.31 0 Anxiety disorder 6969340 06 F41.3 stable Depressive disorder 3548 9007 F33.9 discussed mood History of pulmonary embolus 372202306 Z86.711 029638 019754 Joselo Mckeon [facility] Internal [address] [address] 01/20/2025 15:44:17 01/21/2025 09:00:52 Depression screening 938421780 Z13.31 0 Anxiety disorder F41.3 stable Depressive disorder 3548 9007 F33.9 discussed mood Irritable bowel syndrome characterized by constipation 568742655 K58.1 stable 640781 Joselo Mckeon [facility] Internal Medicine [address] [place] [address] 01/27/2025 11:45:03 01/27/2025 15:28:54 Closed fracture of multiple right ribs 1906837747 5669781 S22.41XA 95762284 7th and 8th Closed fra cture of multiple left ribs 4239196382 4540545 S22.42XA 39261436 Fibromyalgia 570877118 M 79.7 refill needed, works the best for her Spasm of back muscles 20 5029824 M62.830 adjust dose up to 1000 mg QID PRN 917792 [facility] [address] [place] [address] 01/30/2025 10:01:34 01/30/2025 11:55:28 Cobalamin deficiency 823790241 E53.8 needs refill 978669 Joselo Mckeon [facility] Internal Medicine [address] [facility] [address],[place] [address] 02/20/2025 09:44:34 02/20/2025 10:25:11 Pulmonary embolism 32835771 I26.93 2654911067 left distal pulm arteryresu bmitting Pulm referral waiting on rest of lab work up Finding of bone of thorax 307033945 M89.9 1504099 needs the f/u CT now Chronic pain syndrome 37 5333482 G89.4 22187 refill needed, works the best for her 512090 Joselo Mckeon [facility] Internal Medicine [address] [facility] [address],[place] [address] 02/27/2025 10:32:34 02/27/2025 13:27:30 Dyspnea on exertion 44675803 R06.09 524926 agreed to PFT Pulmonary embolism 80490 003 I26.93 5911260147 left distal pulm arteryresu bmitting Pulm referral waiting on rest of lab work up Rib pain 360445456 R07.8 1 start back on tramadol, continue the journavx Fibromyalgia 216068047 M 79.7 refill needed, works the best for her 176045 Joselo Mckeon [facility] Internal Medicine [address] [facility] [address],[place] [address] 03/20/2025 09:12:46 03/20/2025 12:07:58 Depression screening 613180102 Z13.31 0 Chronic pain syndrome 37 2538270 G89.4 refill needed, works the best for herrecom she start taking the tramadol as prescribed instead of once a day Perimenopausal state 116 8464337 97526 N95.1 282649 will set up level eval for her Autoimmune disease 33349 009 D89.89 44941 check levels Health Concerns Section Related Observation LastModified by Organization Detai ls LastModified Time None Recorded Concern Status LastModified by Organization Details LastModified Time None Recorded Advance Directives Directive None Recorded Payers Insurance Date Sequence Insurance Name Policy Number Policy Powell Covered Member ID Powell Member ID Guarantor Name 05/09/2021 1 [facility] (PPO) [id number] 1 [employer] Howard [id number] Mariaa Howard 03/25/2025 1 [place] [id number] 1 [employer] Howard [id number] Mariaa Howard Notes Date Note Type Note Provider Name and Address Organization Details Recorded Time 5 text/html ROS as noted in the HPI f/u NM bone scan results the patient reports is here today for the f/u for her bone scanfound to have an 7th and 8th right rib the patient reports that she is still having the right side pain, now explained by the bone scanhas the ct chest scheduled Sunday the patient has fu with pulm and has exercise PFT test coming MONIK HUYNH [address] [place] [address], [place], [address], [facility], [place], operated by [facility] 01/27/2025 12:22:25 5 text/html ROS as noted in the HPI f/u [address] again, the patient reports that she had her f/u with her pulm, redid some bloodwork we did recently with some additional lab work having too severe dizziness and her joint pain is still happening on the eliquisthe patient and I agreed to switch out to the xarelto 20 mg as the alt for coverage will be trying to come down on the dose of the 10 mg of pred and start the biologic her ears are stable todayotherwise no changes meds adjusted MONIK HUYNH [address] [facility], [place], [address], [facility], [place], operated by [facility] 02/20/2025 10:21:30 5 text/html ROS as noted in the HPI f/u ER The patient is participating in this appointment via telemedicine communication with a phone call (audio) only.The patient consents to use of these platforms in place of an in-person appointment due to either patient being acutely ill (being in office would put our staff and our other patients at risk) or unable to make an in-person appointment due to either lack of transportation, severe medical condition, immunocompromised, etc.The appointment took place over a phone call (audio) due to patient's inability to access or use an audio and visual platform. the patient reports that she was in significant pain, ended up having to go to the ER due to complete loss of function due the pain the patient reports that they declined a CT at the ER the patient reports that they recommended discussing if the switch of blood thinnersunlikely, but will have her switch out back to eliquis to seeher other joint pain and dizziness is gone now with going to xarelto restarted tramadol as wellthe Journavx was approved, have been using that, seems to be helping prior to this trial the weekend back on eliquis, unlikely but if her pain resolved with adjust lower dose and add asa MONIK HUYNH [address] [place], [address], [facility], [place], operated by [facility] 02/27/2025 13:01:27 5 text/html ROS as noted in the HPI f/u appt. the patient reports that she is still having pain in her ribs, R sideCT was reassuring that it was just healing fracture not an erosive lesion the patient wasn't using the full course of tramadol, recommended taking as prescribeddropping her prednisone, to 5 mg, the patient reports is having issues with weight gain due to the prednisonethe patient will set up with hormone testing, on an IUD, not a estrogen based medicationwill have her get her tryptase levels checked as well given ?autoimmune vs mast cell component all other results that have been done are unremarkable MONIK HUYNH [address] [place], [address], [facility], [place], operated by [facility] 03/20/2025 09:45:29 OBGyn Episode No OBEpisode recorded.
[2025-04-01 09:28] LABS: Follicle Stimulating Hormone 5.7 mIU/mL
[2025-04-07 09:03] LABS: Estradiol Ultra Sensitive 277 pg/mL
== END 2025-03-31 11:29 | disposition home or self-care (01) ==
LOC: HO.MANLDS 11:28
PROVIDERS: Visit Provider Physician Assistant
DX: G89.4 Chronic pain syndrome (principal); N95.1 Menopausal and female climacteric states; D89.89 Other specified disorders involving the immune mechanism, not elsewhere classified
CPT/HCPCS: 36415; 82670; 82672; 83001; 83002; 83520; 84144; 84146; 84403; 85652; 86140